=== PATIENT | female | born 1995 | race African-American/Black ===

== ENCOUNTER 2017-06-26 04:58 | Emergency (ER) | payer OTHER, SELFPAY ==
[2017-06-26 05:12] VITALS: BP 140/86; PULSE 77; RESP 18; TEMP 36.9; O2SAT 100; BMI 29.8
--- NOTE | 2017-06-26 05:45 | HMH.EDUROGF ---
ED Disposition Clinical Impression: Dysmenorrhea Disposition: Home, Self-Care Condition on Discharge: Good Instructions: DI for Vaginal Bleeding Additional Instructions: see pcp or chip person for follow up Referrals: Angle Bright PA [Primary Care Provider] - - Critical Care Critical Care Time: No Attestation: On 06/26/17, the high probability of a clinically significant, sudden or life threatening deterioration of the following system(s) required my full and direct attention, intervention and personal management. The time I documented below is in addition to time spent performing reported procedures but includes the following listed in this critical care notation. Medical Decision Making - Medical Records Medical records reviewed: Yes: I reviewed the patient's medical records. Vital Signs: 06/26/17 05:12 Temperature 98.5 F Temperature Source Oral Pulse Rate [Right Radial] 77 Respiratory Rate 18 Blood Pressure [Right Arm] 140/86 Blood Pressure Mean [Right Arm] 104 Blood Pressure Source [Right Arm] Automatic Cuff Blood Pressure Position [Right Arm] Sitting 02 Sat by Pulse Oximetry 100 Oxygen Delivery Method Room Air - Lab Data Lab results reviewed: Yes: I reviewed the patient's lab results. Lab Results 06/26/17 05:25: Urine Color Red, Urine Appearance Cloudy, Urine pH 6.5, Ur Specific [place] >= 1.030, Urine Protein 2+, Urine Glucose (UA) Negative, Urine Ketones Negative, Urine Blood 3+, Urine Nitrate Negative, Urine Bilirubin Negative, Urine Urobilinogen 0.2, Ur Leukocyte Esterase Negative, Urine RBC Tntc, Urine WBC Occasional, Ur Squamous Epith Cells 3-5, Urine Bacteria 1+ 06/26/17 05:50: WBC 5.8, RBC 4.07 L, Hgb 11.0 L, Hct 34.9 L, MCV 85.7, MCH 27.1, MCHC 31.7 L, RDW 15.7, Plt Count 425 H, MPV 7.7, Neut % (Auto) 48.5, Lymph % (Auto) 44.0, [place] % (Auto) 6.5, Eos % (Auto) 0.7, Baso % (Auto) 0.3, Neut # (Auto) 2.8, Lymph # (Auto) 2.5, [place] # (Auto) 0.4, Eos # (Auto) 0.0, Baso # (Auto) 0.0 06/26/17 05:50: Sodium 140, Potassium 3.5, Chloride 104, Carbon Dioxide 26, Anion Gap 13.5, BUN 11, Creatinine 0.83, Estimated Creat Clear 147, Estimated GFR 88, Est GFR ( Amer) 106, Glucose 90, Calcium 8.6, Total Bilirubin 0.2, AST 9 L, ALT 20, Alkaline Phosphatase 80, Total Protein 7.6, Albumin 3.7, Globulin 3.9 H, Albumin/Globulin Ratio 0.9 L 06/26/17 05:55: Urine HCG, Qual Negative Result diagrams: 06/26/17 05:50 06/26/17 05:50 - Robert Inquiry Pt receiving controlled substance: No Female Urogenital HPI - General Chief complaint: Urogenital-Female Stated complaint: Passed large clot, possible miscarriage Time Seen by Provider: 06/26/17 05:45 Mode of Arrival: Ambulatory Source of Information: Patient, Relative, Medical Record Limitations: No Limitations Description of Symptoms (Recalled from ER Triage Doc. by RN): Pt reports her period is early and she is passing blood clots, pt reports lower abdominal cramping. - History of Present Illness HPI Narrative: pt with crampy pelvic pain with abn vag bleeding - neg preg test last week - MD Complaint: vaginal bleeding Onset (ago): hour(s) Severity: moderate Quality: cramping Duration: intermittent Sexual activity: yes : unsure - Related Data Home Medications Medication Instructions Recorded Confirmed No Known Home Medications [No 06/26/17 06/26/17 Known Home Medications] Allergies Allergy/AdvReac Type Severity Reaction Status Date / Time No Known Allergies Allergy Verified 06/26/17 05:20 [facility] History I have reviewed the patient's past medical history: Yes - Social History Smoking Status: Current every day smoker Tobacco Type: cigarettes Alcohol Intake: never - Psychiatric History Expresses thoughts of harming self/others: None Suicide Plan Description: No Plan ROS Obtained: Yes All systems reviewed & no additional complaints - Constitutional Constitutional: Denies fever(s) - Eyes Eyes: Denies ch
[2017-06-26 06:15] LABS: Appearance,Urine CLOUDY (Clear); Bilirubin,Urine Negative (Negative); Blood, Urine 3+ (Negative); Color,Urine RED (Yellow); Glucose,Urine (UA) Negative (Negative); Ketones,Urine Negative (Negative); Leukocyte Esterase,Urine Negative (Negative); Microscopic, Urine URINE MICROSCOPIC (MICROSCOPIC); Nitrate,Urine Negative (Negative); PH,Urine 6.5 (5.0-8.5); Protein,Urine 2+ (Negative); Specific Gravity, Urine >= 1.030 (1.005-1.030); Urobilinogen,Urine 0.2 EU/dl (0.2)
[2017-06-26 06:20] LABS: Urine Pregnancy, HCG Qual. Negative (Negative)
[2017-06-26 06:31] LABS: Basophils % 0.3 % (0.1-2.0); Eosinophils % 0.7 % (0.1-12.0); Hematocrit 34.9 % (37.0-47.0); Lymphocytes # 2.5 K/mm3 (0.7-4.5); Mean Corpuscular HGB Conc 31.7 g/dL (31.8-35.4); Mean Corpuscular Hemoglobin 27.1 pg (27.0-31.2); Mean Corpuscular Volume 85.7 fl (81-99); Mean Platelet Volume 7.7 fl (7.4-10.4); Monocytes # 0.4 K/mm3 (0.1-1.0); Monocytes % 6.5 % (1.7-9.3); Neutrophils # 2.8 K/mm3 (1.8-7.8); Neutrophils % 48.5 % (37.0-80.0); Platelet Count 425 K/mm3 (142-424); Red Blood Count 4.07 M/mm3 (4.20-5.40); Red Cell Distribution Width 15.7 % (11.5-17.5); White Blood Count 5.8 K/mm3 (4.5-13.0)
[2017-06-26 06:36] LABS: RBC,Urine TNTC #/hpf (0-3); WBC,Urine Occasional #/hpf (0-3)
[2017-06-26 06:37] LABS: Bacteria,Urine 1+ /lpf
[2017-06-26 06:42] LABS: Alanine Aminotransferase 20 U/L (12-78); Albumin Level 3.7 gm/dL (3.4-5.0); Albumin/Globulin Ratio 0.9 (1.1-1.8); Alkaline Phosphatase 80 U/L (46-116); Anion Gap 13.5 mEq/L (5-15); Aspartate Amino Transferase 9 U/L (15-37); Bilirubin,Total 0.2 mg/dL (0.2-1.0); Blood Urea Nitrogen 11 mg/dL (7-18); Calcium 8.6 mg/dL (8.5-10.1); Carbon Dioxide 26 mmol/L (21.0-32.0); Chloride 104 mmol/L (98-107); Creatinine Clearance Estimated 147 mL/min (0-300); Creatinine,Serum 0.83 mg/dL (0.55-1.02); Estimated Glomerular Filt Rate 88 ml/min (>60); GFR (African American) 106 ML/MIN (>60); Globulin 3.9 gm/dl (1.3-3.2); Glucose 90 mg/dL (74-106); Potassium 3.5 mmoL/L (3.5-5.1); Sodium 140 mmol/L (136-145); Total Protein,Serum 7.6 gm/dL (6.4-8.2)
[2017-06-26 06:55] VITALS: BP 140/79; PULSE 76; RESP 18; TEMP 36.8; O2SAT 99
== END 2017-06-26 06:55 | disposition home or self-care (01) ==
PROVIDERS: Emergency Provider Emergency Medicine; Family Provider Physician Assistant; PCP Physician Assistant
DX: N94.6 Dysmenorrhea, unspecified (principal); F17.210 Nicotine dependence, cigarettes, uncomplicated
CPT/HCPCS: 80053; 81001; 81025; 85025; 99282

== ENCOUNTER → 2017-08-28 16:27 | Outpatient (REF) | payer OTHER, SELFPAY ==
[2017-08-28 18:29] LABS: Basophils % 0.3 % (0.1-2.0); Eosinophils # 0.1 K/mm3 (0.0-0.4); Hematocrit 36.7 % (37.0-47.0); Hemoglobin 11.4 g/dL (12.2-16.2); Lymphocytes # 1.9 K/mm3 (0.7-4.5); Lymphocytes % 27.6 K/mm3 (10-50); Mean Corpuscular HGB Conc 31.1 g/dL (31.8-35.4); Mean Corpuscular Hemoglobin 27.3 pg (27.0-31.2); Mean Corpuscular Volume 87.8 fl (81-99); Mean Platelet Volume 7.8 fl (7.4-10.4); Monocytes # 0.4 K/mm3 (0.1-1.0); Monocytes % 5.3 % (1.7-9.3); Neutrophils # 4.4 K/mm3 (1.8-7.8); Neutrophils % 65.8 % (37.0-80.0); Platelet Count 365 K/mm3 (142-424); Red Blood Count 4.18 M/mm3 (4.20-5.40); Red Cell Distribution Width 15.9 % (11.5-17.5); White Blood Count 6.7 K/mm3 (4.5-13.0)
[2017-08-28 19:07] LABS: Hemoglobin A1C 5.2 % (0.0-7.0)
[2017-08-28 19:09] LABS: Alanine Aminotransferase 18 U/L (12-78); Albumin Level 3.5 gm/dL (3.4-5.0); Alkaline Phosphatase 71 U/L (46-116); Aspartate Amino Transferase 10 U/L (15-37); Bilirubin,Total 0.1 mg/dL (0.2-1.0); Blood Urea Nitrogen 10 mg/dL (7-18); Calcium 9.3 mg/dL (8.5-10.1); Carbon Dioxide 25 mmol/L (21.0-32.0); Chloride 105 mmol/L (98-107); Chol/HDL Ratio 2.8 (1-3.5); Cholesterol 136 mg/dL (140-200); Creatinine,Serum 0.84 mg/dL (0.55-1.02); Estimated Glomerular Filt Rate 86 ml/min (>60); GFR (African American) 105 ML/MIN (>60); Globulin 3.4 gm/dl (1.3-3.2); Glucose 82 mg/dL (74-106); HDL Cholesterol 49 mg/dL (29-89); LDL Cholesterol 60 mg/dL (0-130); Sodium 141 mmol/L (136-145); T4 (Thyroxine) 8.8 ug/dl (5.4-10.6); Total Protein,Serum 6.9 gm/dL (6.4-8.2); Triglycerides 133 mg/dL (30-200); VLDL Cholesterol 27 mg/dL (0-40)
[2017-08-28 20:18] LABS: Ferritin 15 ng/mL (8-388); Thyroid Stimulating Hormone 1.81 uIU/ml (0.516-4.13)
[2017-08-30 08:28] LABS: Iron 97 ug/dL (27-159); Iron Saturation 24 % (15-55); UIBC 312 ug/dL (131-425)
[2017-08-31 12:51] LABS: Vitamin B12 361 pg/mL (232-1245); Vitamin D 25 Hydroxy 10.6 ng/mL (30.0-100.0)
== END ==
LOC: LAB 16:27
PROVIDERS: Visit Provider Nurse Practitioner Family
DX: R69 Illness, unspecified (principal); D64.9 Anemia, unspecified; R53.83 Other fatigue
CPT/HCPCS: 80053; 80061; 82607; 82652; 82728; 83036; 83550; 84436; 84443; 84702; 85025

== ENCOUNTER 2017-09-13 13:29 | Observation (INO) ==
[2017-09-13 14:16] LABS: Basophils % 0.5 % (0.1-2.0); Eosinophils % 0.5 % (0.1-12.0); Hemoglobin 11.8 g/dL (12.2-16.2); Lymphocytes # 0.9 K/mm3 (0.7-4.5); Lymphocytes % 29.7 K/mm3 (10-50); Mean Corpuscular HGB Conc 32.7 g/dL (31.8-35.4); Mean Corpuscular Hemoglobin 28.2 pg (27.0-31.2); Mean Corpuscular Volume 86.2 fl (81-99); Mean Platelet Volume 7.7 fl (7.4-10.4); Monocytes # 0.4 K/mm3 (0.1-1.0); Monocytes % 13.1 % (1.7-9.3); Neutrophils # 1.7 K/mm3 (1.8-7.8); Neutrophils % 56.2 % (37.0-80.0); Platelet Count 289 K/mm3 (142-424); Red Blood Count 4.18 M/mm3 (4.20-5.40); Red Cell Distribution Width 16.8 % (11.5-17.5)
[2017-09-13 14:24] LABS: Albumin Level 3.3 gm/dL (3.4-5.0); Albumin/Globulin Ratio 0.8 (1.1-1.8); Anion Gap 14.4 mEq/L (5-15); Bilirubin,Total 0.2 mg/dL (0.2-1.0); Calcium 9.4 mg/dL (8.5-10.1); Globulin 4.3 gm/dl (1.3-3.2); Potassium 3.4 mmoL/L (3.5-5.1); Total Protein,Serum 7.6 gm/dL (6.4-8.2)
--- NOTE | 2017-09-13 14:50 | Emergency Department Note ---
ED Disposition Clinical Impression: Intractable vomiting, Dehydration, Hypokalemia, Anemia, Diarrhea, First trimester Disposition: Still a Patient Condition on Discharge: Fair Instructions: DI for Diarrhea and Traveler's Diarrhea -- Adult, DI for Diarrhea and Traveler's Diarrhea -- Child, DI for Nausea -- Adult, DI for Nausea -- Child Referrals: Angle Bright PA [Primary Care Provider] - - Critical Care Critical Care Time: No Attestation: On 09/13/17, the high probability of a clinically significant, sudden or life threatening deterioration of the following system(s) required my full and direct attention, intervention and personal management. The time I documented below is in addition to time spent performing reported procedures but includes the following listed in this critical care notation. Medical Decision Making - Robert Inquiry Pt receiving controlled substance: No Robert was queried for this patient: No Vital Signs: 09/13/17 13:51 Temperature 98.5 F Temperature Source Oral Pulse Rate [Left Radial] 106 H Respiratory Rate 20 Blood Pressure [Right Arm] 120/74 Blood Pressure Mean [Right Arm] 89 Blood Pressure Source [Right Arm] Automatic Cuff 02 Sat by Pulse Oximetry 97 Oxygen Delivery Method Room Air - Lab Data Lab Results 09/13/17 13:45: WBC 3.0 L, RBC 4.18 L, Hgb 11.8 L, Hct 36.0 L, MCV 86.2, MCH 28.2, MCHC 32.7, RDW 16.8, Plt Count 289, MPV 7.7, Neut % (Auto) 56.2, Lymph % ( Auto) 29.7, [place] % (Auto) 13.1 H, Eos % (Auto) 0.5, Baso % (Auto) 0.5, Neut # ( Auto) 1.7 L, Lymph # (Auto) 0.9, [place] # (Auto) 0.4, Eos # (Auto) 0.0, Baso # ( Auto) 0.0 09/13/17 13:45: Sodium 138, Potassium 3.4 L, Chloride 99, Carbon Dioxide 28, Anion Gap 14.4, BUN 10, Creatinine 0.71, Estimated Creat Clear 176, Estimated GFR 105, Est GFR ( Amer) 127, Glucose 95, Calcium 9.4, Total Bilirubin 0.2, AST 23, ALT 30, Alkaline Phosphatase 63, Total Protein 7.6, Albumin 3.3 L, Globulin 4.3 H, Albumin/Globulin Ratio 0.8 L Result diagrams: 09/13/17 13:45 09/13/17 13:45 Orders (Tests/Meds): ED MEDICATIONS Discontinued Medications Generic Name Dose Route Start Last Admin Trade Name Tone PRN Reason Stop Dose Admin Sodium Chloride 1,000 mls @ 999 mls/hr 09/13/17 14:00 09/13/17 14:05 Sod Chlor 0.9% 1000ml Bag IV 09/13/17 15:00 999 mls/hr .Q1H1M MARIBELL Administration Potassium Chloride 30 meq 09/13/17 14:50 Klor-Con 10meq Tablet PO 09/13/17 14:51 ONCE ONE Promethazine HCl 12.5 mg 09/13/17 13:59 09/13/17 14:04 Phenergan 25mg/Ml 1ml Vial IV 09/13/17 14:00 12.5 mg ONCE ONE Administration Sodium Chloride 25 ml 09/13/17 13:59 09/13/17 14:04 Sod Chlor 0.9% 25ml Bag IV 09/13/17 14:00 25 ml ONCE ONE Administration ORDERS Category Date Time Status UA [Urinalysis and Microscopic] Stat Lab 09/13/17 13:58 Ordered Medical Decision Narrative: After the patient was given Phenergan IV and IV fluids she was unable to tolerate p.o. liquid p.o.. I spoke with Amarilis Foster and she accepted to admit the patient for IV rehydration and antiemetics therapy. Nausea/Vomiting/Diarrhea HPI - General Chief complaint: Nausea/Vomiting/Diarrhea Stated complaint: vomiting x 48 hours, 9 weeks Time Seen by Provider: 09/13/17 14:00 Mode of Arrival: Ambulatory Limitations: No Limitations Description of Symptoms (Recalled from ER Triage Doc. by RN): Pt is 9 weeks and has been vomiting for 48 hours. States she is worried about the and not being able to keep anything down. Denies any bleeding or cramping - History of Present Illness HPI Narrative: 22 years old -[place] female 1 para 0 A0. 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 2 days ago she developed vomiting 10-20 times a day followed by diarrhea 6 times a day. This morning she was unable to keep any liquids down, she called her PILLOWCASE TURNER and she decided to come to the ED. the ED she was given Phenergan and she is not actively vomiting. Denies having abdominal pain back pain pelvic pain vaginal cramping or bleeding. MD complaint: nausea, vomiting, diarrhea Onset (ago): hour(s) (48 hours.) Description of Vomiting: food contents, watery Description of Diarrhea: water Associated Abdominal Pain: No Quality: cramping (Occasional cramping with vomiting and diarrhea but not consistently.) Consistency: intermittent Relieving factors: none Exacerbating factors: eating Associated symptoms: denies other symptoms - Related Data Home Medications Medication Instructions Recorded Confirmed Pnv No.122/Iron/Folic Acid 1 each PO DAILY 08/26/17 09/13/17 [ Multi Tablet] Ergocalciferol (Vitamin D2) 50,000 unit PO QWEEK 09/13/17 09/13/17 [Vitamin D2] Allergies Allergy/AdvReac Type Severity Reaction Status Date / Time No Known Allergies Allergy Verified 08/28/17 16:08 [facility] History I have reviewed the patient's past medical history: Yes (There is an outbreak of stomach virus in the community. ) Medical History: Denies:: Cancer, Diabetes Mellitus Type 1, Diabetes Mellitus Type 2, MRSA Other Surgeries: Yes: No Previous Surgery Amputation: No Fractures: No - Social History Smoking Status: Current every day smoker Tobacco Type: cigarettes # Packs/Day (cigarettes): 1 #Yrs smoked (if former smoker): 1 Alcohol Intake: never Substance Use Type: denies use Occupational Status: unemployed Housing: house Household Members: family - Psychiatric History Expresses thoughts of harming self/others: None Suicide Plan Description: No Plan Family Hx:: No significant family history ROS Obtained: Yes All systems reviewed & no additional complaints Physical Exam - General General appearance: alert, in no apparent distress, other (Had a candid discussion with the patient provided full history, was in no cardiopulmonary distress. ) - Head Head exam: atraumatic, normocephalic, normal inspection - Eye Eye exam: Present: normal appearance, PERRL, EOMI - ENT ENT exam: Present: normal exam, normal oropharynx, mucous membranes moist, TM's normal bilaterally, normal external ear exam - Neck Neck exam: Present: normal inspection, full ROM, trachea midline. Absent: meningismus, lymphadenopathy - Chest Chest inspection: Present: normal inspection, symmetric chest wall rise. Absent : tenderness - Respiratory Respiratory exam: Present: normal lung sounds bilaterally. Absent: respiratory distress - Cardiovascular Cardiovascular exam: Present: regular rate, normal rhythm. Absent: JVD - Abdominal Exam Abdominal exam: Present: soft, normal bowel sounds. Absent: distention, tenderness, guarding - Extremities Exam Extremities exam: Present: normal inspection, full ROM, normal capillary refill. Absent: calf tenderness - Back Exam Back exam: Present: normal inspection. Absent: tenderness - Neurological Exam Neurological exam: Present: alert, oriented X3, CN II-XII intact, normal gait, motor sensory deficit, reflexes normal - Psychiatric Psychiatric exam: Present: normal affect, normal mood - Skin Skin exam: Present: warm, dry, intact, normal color - Lymphatic Lymphatic Findings: no adenopathy
[2017-09-13 15:50] LABS: Microscopic, Urine URINE MICROSCOPIC (MICROSCOPIC)
[2017-09-13 16:00] LABS: Appearance,Urine CLEAR (Clear); Bilirubin,Urine Negative (Negative); Blood, Urine Negative (Negative); Color,Urine YELLOW (Yellow); Glucose,Urine (UA) Negative (Negative); Ketones,Urine Negative (Negative); Leukocyte Esterase,Urine 1+ (Negative); Protein,Urine Negative (Negative); Specific Gravity, Urine <= 1.005 (1.005-1.030); Urobilinogen,Urine 0.2 EU/dl (0.2)
[2017-09-13 16:26] LABS: Bacteria,Urine 1+ /lpf; Squamous Epithelial Cell,Urine TNTC #/hpf (0-5)
[2017-09-14 06:56] LABS: Basophils % 0.1 % (0.1-2.0); Eosinophils % 0.7 % (0.1-12.0); Lymphocytes # 0.8 K/mm3 (0.7-4.5); Lymphocytes % 32.7 K/mm3 (10-50); Mean Corpuscular HGB Conc 32.9 g/dL (31.8-35.4); Mean Corpuscular Hemoglobin 28.4 pg (27.0-31.2); Mean Corpuscular Volume 86.4 fl (81-99); Mean Platelet Volume 8.2 fl (7.4-10.4); Monocytes # 0.3 K/mm3 (0.1-1.0); Monocytes % 11.7 % (1.7-9.3); Neutrophils # 1.4 K/mm3 (1.8-7.8); Neutrophils % 54.8 % (37.0-80.0); Platelet Count 254 K/mm3 (142-424); Red Blood Count 3.64 M/mm3 (4.20-5.40); Red Cell Distribution Width 16.8 % (11.5-17.5); White Blood Count 2.5 K/mm3 (4.5-13.0)
[2017-09-14 07:10] LABS: Anion Gap 13.6 mEq/L (5-15); Potassium 3.6 mmoL/L (3.5-5.1)
--- NOTE | 2017-09-14 07:10 | Pharmacy Consult Notes ---
[facility] Pharmacy VTE Monitoring - Patient Demographics Admission date: 09/14/17 Report Date: 09/14/17 Time: 07:10 Allergies/Adverse Reactions: Patient Allergies No Known Allergies Allergy (Verified 08/28/17 16:08) Height: 1.73 m Weight: 89.556 kg Patient Problems: Current Active Problems (Last Updated 09/03/17 @ 15:21 by WERNER Pina) Intractable vomiting (Acute) Dehydration (Acute) Hypokalemia (Acute) Anemia (Acute) Diarrhea (Acute) First trimester (Acute) - VTE Risk Labs: VTE Related Lab Results Hgb 11.8 g/dL (12.2-16.2) L 09/13/17 13:45 Hct 36.0 % (37.0-47.0) L 09/13/17 13:45 Plt Count 289 K/mm3 (142-424) 09/13/17 13:45 BUN 10 mg/dL (7-18) 09/13/17 13:45 Creatinine 0.71 mg/dL (0.55-1.02) 09/13/17 13:45 Estimated Creat Clear 176 mL/min (0-300) 09/13/17 13:45 Was VTE Risk Assessment Performed: Yes VTE Score: 0 VTE Risk Level: Very Low Risk Clinical Trial Participant: No - Prophylaxis VTE Prophylaxis Ordered?: Yes Types of VTE Prophylaxis: TEDS Knee High
[2017-09-14 07:25] LABS: Hemoglobin 10.3 g/dL (12.2-16.2)
[2017-09-14 07:26] LABS: Hematocrit 31.5 % (37.0-47.0)
--- NOTE | 2017-09-14 08:42 | H&P/Discharge Summary ---
General - General Admission date:: 09/13/17 Discharge date: 09/14/17 *Admission Date: 09/14/17 *Chief complaint: n/v/d *History of present illness: 22 years old female 1 para 0. 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 Pt states she was unable to keep any liquids down, pt states she called her CUSTOMER SUPPORT SPECIALIST and she decided to come to the ED. While in the ED she was given Phenergan and she is not actively vomiting. Denies having abdominal pain back pain pelvic pain vaginal cramping or bleeding. Pt states has had ultrasound with silk screen etcher/ob office and states is normal. [facility] History I have reviewed the patient's past medical history: Yes Medical History: Denies:: Cancer, Diabetes Mellitus Type 1, Diabetes Mellitus Type 2, MRSA Other Surgeries: Yes: No Previous Surgery Amputation: No Fractures: No - *Social History Educational Level: Completed High School Smoking Status: Current every day smoker Tobacco Type: cigarettes # Packs/Day (cigarettes): 1 #Yrs smoked (if former smoker): 1 Alcohol Intake: never Substance Use Type: denies use Occupational Status: unemployed Housing: house Household Members: family - Psychiatric History Expresses thoughts of harming self/others: None Suicide Plan Description: No Plan *Family Hx:: No significant family history Review of Systems - Review of Systems Review of systems:: pertinent systems reviewed and negative unless documented below - Constitutional Denies body ache(s), Denies fever(s) - Eyes Denies change in vision - ENT Denies change in voice - *Cardiovascular Denies chest pain with activity, Denies leg swelling - *Respiratory Denies cough, Denies shortness of breath - *Gastrointestinal Reports change in bowel habits, Reports nausea, Reports vomiting - *Genitourinary Reports other - *Musculoskeletal Denies joint pain - Integumentary/Breasts Denies rash - *Neurologic Denies other - Psychiatric Denies anxiety - Endocrine Denies increased thirst - Hematologic/Lymphatic Denies enlarged lymph nodes - Allergic/Immunologic Denies itchy eyes Exam Vital signs and Labs for Last 24 Hours: Temp Pulse Resp BP Pulse Ox 99.3 F 84 14 113/63 99 09/14/17 04:00 09/14/17 04:00 09/14/17 04:00 09/14/17 04:00 09/14/17 04:00 Laboratory Results - last 24 hr 09/13/17 13:45: WBC 3.0 L, RBC 4.18 L, Hgb 11.8 L, Hct 36.0 L, MCV 86.2, MCH 28.2, MCHC 32.7, RDW 16.8, Plt Count 289, MPV 7.7, Neut % (Auto) 56.2, Lymph % ( Auto) 29.7, [place] % (Auto) 13.1 H, Eos % (Auto) 0.5, Baso % (Auto) 0.5, Neut # ( Auto) 1.7 L, Lymph # (Auto) 0.9, [place] # (Auto) 0.4, Eos # (Auto) 0.0, Baso # ( Auto) 0.0 09/13/17 13:45: Sodium 138, Potassium 3.4 L, Chloride 99, Carbon Dioxide 28, Anion Gap 14.4, BUN 10, Creatinine 0.71, Estimated Creat Clear 176, Estimated GFR 105, Est GFR ( Amer) 127, Glucose 95, Calcium 9.4, Total Bilirubin 0.2, AST 23, ALT 30, Alkaline Phosphatase 63, Total Protein 7.6, Albumin 3.3 L, Globulin 4.3 H, Albumin/Globulin Ratio 0.8 L 09/13/17 15:35: Urine Color Yellow, Urine Appearance Clear, Urine pH 6.0, Ur Specific [place] <= 1.005, Urine Protein Negative, Urine Glucose (UA) Negative, Urine Ketones Negative, Urine Blood Negative, Urine Nitrate Negative, Urine Bilirubin Negative, Urine Urobilinogen 0.2, Ur Leukocyte Esterase 1+ A, Urine RBC None, Urine WBC 5-10, Ur Squamous Epith Cells Tntc, Urine Bacteria 1+ 09/14/17 06:10: WBC 2.5 L, RBC 3.64 L, Hgb 10.3 L D, Hct 31.5 L, MCV 86.4, MCH 28.4, MCHC 32.9, RDW 16.8, Plt Count 254, MPV 8.2, Neut % (Auto) 54.8, Lymph % ( Auto) 32.7, [place] % (Auto) 11.7 H, Eos % (Auto) 0.7, Baso % (Auto) 0.1, Neut # ( Auto) 1.4 L, Lymph # (Auto) 0.8, [place] # (Auto) 0.3, Eos # (Auto) 0.0, Baso # ( Auto) 0.0 09/14/17 06:10: Sodium 140, Potassium 3.6, Chloride 107, Carbon Dioxide 23, Anion Gap 13.6, BUN 6 L D, Creatinine 0.56 D, Estimated Creat Clear 227, Estimated GFR 138, Est GFR ( Amer) 167 D, Glucose 94, Magnesium 1.7 I & O for Last 24 hours: Intake & Output 09/11/17 09/12/17 09/13/17 09/14/17 11:59 11:59 11:59 11:59 Intake Total 120 / 120 Balance 120 / 120 Weight 197 lb 7 oz - Constitutional no acute distress - *Routine HEENT Exam Head: Present: normocephalic Eye: Present: PERRL ENT: Present: mucous membranes moist - *Routine Neck Exam Present: supple, full ROM - *Routine Respiratory Exam Present: CTA bilaterally - *Routine Cardiovascular Exam Present: RRR - *Routine Abdominal Exam Present: soft, normoactive bowel sounds - *Routine Extremities Exam Present: full ROM - *Routine Skin Exam Present: intact - *Routine Neurological Exam Present: alert, oriented X3, CN II-XII intact - Routine Psychiatric Exam Present: normal affect, normal thought process Hospital Course Hospital Course: Received IV fluids, resting of the gut, patient states this morning she has eaten some simeon crackers with marginal cream and was able to keep those stay on and feeling much better. Patient states family is to bring her in [place] , states she does not feel nauseous this time. We will discharge home with follow-up with CUSTOMER SUPPORT SPECIALIST patient has Phenergan at home that was given to her by her CUSTOMER SUPPORT SPECIALIST. Results Labs on day of discharge: Labs from last 24 hours 09/14/17 09/14/17 09/13/17 06:10 06:10 15:35 WBC 2.5 L RBC 3.64 L Hgb 10.3 L D Hct 31.5 L MCV 86.4 MCH 28.4 MCHC 32.9 RDW 16.8 Plt Count 254 MPV 8.2 Neut % (Auto) 54.8 Lymph % (Auto) 32.7 [place] % (Auto) 11.7 H Eos % (Auto) 0.7 Baso % (Auto) 0.1 Neut # (Auto) 1.4 L Lymph # (Auto) 0.8 [place] # (Auto) 0.3 Eos # (Auto) 0.0 Baso # (Auto) 0.0 Sodium 140 Potassium 3.6 Chloride 107 Carbon Dioxide 23 Anion Gap 13.6 BUN 6 L D Creatinine 0.56 D Estimated Creat Clear 227 Estimated GFR 138 Est GFR ( Amer) 167 D Glucose 94 Calcium Magnesium 1.7 Total Bilirubin AST ALT Alkaline Phosphatase Total Protein Albumin Globulin Albumin/Globulin Ratio Urine Color Yellow Urine Appearance Clear Urine pH 6.0 Ur Specific [place] <= 1.005 Urine Protein Negative Urine Glucose (UA) Negative Urine Ketones Negative Urine Blood Negative Urine Nitrate Negative Urine Bilirubin Negative Urine Urobilinogen 0.2 Ur Leukocyte Esterase 1+ A Urine RBC None Urine WBC 5-10 Ur Squamous Epith Cells Tntc Urine Bacteria 1+ 09/13/17 09/13/17 13:45 13:45 WBC 3.0 L RBC 4.18 L Hgb 11.8 L Hct 36.0 L MCV 86.2 MCH 28.2 MCHC 32.7 RDW 16.8 Plt Count 289 MPV 7.7 Neut % (Auto) 56.2 Lymph % (Auto) 29.7 [place] % (Auto) 13.1 H Eos % (Auto) 0.5 Baso % (Auto) 0.5 Neut # (Auto) 1.7 L Lymph # (Auto) 0.9 [place] # (Auto) 0.4 Eos # (Auto) 0.0 Baso # (Auto) 0.0 Sodium 138 Potassium 3.4 L Chloride 99 Carbon Dioxide 28 Anion Gap 14.4 BUN 10 Creatinine 0.71 Estimated Creat Clear 176 Estimated GFR 105 Est GFR ( Amer) 127 Glucose 95 Calcium 9.4 Magnesium Total Bilirubin 0.2 AST 23 ALT 30 Alkaline Phosphatase 63 Total Protein 7.6 Albumin 3.3 L Globulin 4.3 H Albumin/Globulin Ratio 0.8 L Urine Color Urine Appearance Urine pH Ur Specific [place] Urine Protein Urine Glucose (UA) Urine Ketones Urine Blood Urine Nitrate Urine Bilirubin Urine Urobilinogen Ur Leukocyte Esterase Urine RBC Urine WBC Ur Squamous Epith Cells Urine Bacteria - Additional Comments With Dr. Orona orders per Yeyo Discharge Medications Discharge Medications: Home Medications Medication Instructions Recorded Confirmed Type Pnv No.122/Iron/Folic Acid 1 each PO DAILY 08/26/17 09/13/17 History [ Multi Tablet] Ergocalciferol (Vitamin D2) 50,000 unit PO QWEEK 09/13/17 09/13/17 History [Vitamin D2] Promethazine HCl [Phenergan 25mg 25 mg PO Q4-6H PRN 09/13/17 09/13/17 History tab] Disposition Disposition: Home, Self-Care
== END 2017-09-14 09:30 | disposition home or self-care (01) ==
LOC: ER 13:29 → 2ND 13:29
PROVIDERS: ADMIT Emergency Medicine; ATTEND Emergency Medicine

== ENCOUNTER → 2019-01-13 14:20 | Outpatient (CLI) | payer OTHER, SELFPAY ==
[2019-01-15 06:09] LABS: HIV Screen 4th Generation wRfx Non Reactive (Non Reactive)
[2019-01-15 09:12] LABS: Hep A Ab, IgM Negative (Negative); Hepatitis B Core Antibody IgM Negative (Negative); Hepatitis B Surface Antigen Negative (Negative)
[2019-01-16 07:10] LABS: HSV 1 IgG, Type Spec <0.91 index (0.00-0.90); HSV 2 IgG, Type Spec <0.91 index (0.00-0.90); Hepatitis C Antibody <0.1 s/co ratio (0.0-0.9); Rapid Plasma Reagin Ab Titer Non Reactive (NonRea<1:1)
[2019-01-16 07:16] LABS: Neisseria gonorrhoeae, NAA Negative (Negative)
== END ==
PROVIDERS: Visit Provider Nurse Practitioner Obstetrics & Gynecology
DX: Z72.51 High risk heterosexual behavior (principal)
CPT/HCPCS: 36415; 80074; 86592; 86695; 86703; 86790; 87491; 87591; G0432

== ENCOUNTER → 2019-02-18 17:29 | Outpatient (CLI) | payer OTHER, SELFPAY ==
[2019-02-18 18:40] LABS: Basophils % 0.3 % (0.1-2.0); Eosinophils % 0.9 % (0.1-12.0); Hematocrit 39.7 % (37.0-47.0); Hemoglobin 11.8 g/dL (12.2-16.2); Lymphocytes # 1.8 K/mm3 (0.7-4.5); Lymphocytes % 40.7 % (10-50); Mean Corpuscular HGB Conc 29.8 g/dL (31.8-35.4); Mean Corpuscular Hemoglobin 26.6 pg (27.0-31.2); Mean Corpuscular Volume 89.3 fl (81-99); Mean Platelet Volume 8.2 fl (7.4-10.4); Monocytes # 0.3 K/mm3 (0.1-1.0); Monocytes % 6.4 % (1.7-9.3); Neutrophils # 2.3 K/mm3 (1.8-7.8); Neutrophils % 51.7 % (37.0-80.0); Platelet Count 532 K/mm3 (142-424); Red Blood Count 4.44 M/mm3 (4.20-5.40); Red Cell Distribution Width 15.2 % (11.5-17.5); White Blood Count 4.4 K/mm3 (4.8-10.8)
[2019-02-18 19:54] LABS: Alanine Aminotransferase 11 U/L (12-78); Albumin Level 3.8 gm/dL (3.4-5.0); Albumin/Globulin Ratio 1.1 (1.1-1.8); Aspartate Amino Transferase 8 U/L (15-37); Bilirubin,Total 0.3 mg/dL (0.2-1.0); Blood Urea Nitrogen 11 mg/dL (7-18); Calcium 9.1 mg/dL (8.5-10.1); Carbon Dioxide 26 mmol/L (21.0-32.0); Chloride 102 mmol/L (98-107); Estimated Glomerular Filt Rate 90 ml/min (>60); GFR (African American) 109 ML/MIN (>60); Globulin 3.6 gm/dl (1.3-3.2); Glucose 86 mg/dL (74-106); Sodium 139 mmol/L (136-145); Total Protein,Serum 7.4 gm/dL (6.4-8.2); Triglycerides 91 mg/dL (30-200)
[2019-02-18 19:55] LABS: Alkaline Phosphatase 80 U/L (46-116); Cholesterol 167 mg/dL (140-200); HDL Cholesterol 55 mg/dL (29-89); LDL Cholesterol 94 mg/dL (0-130); T4 (Thyroxine) 8.7 ug/dl (4.7-13.3); VLDL Cholesterol 18 mg/dL (0-40)
[2019-02-20 17:10] LABS: Vitamin D 25 Hydroxy 11.2 ng/mL (30.0-100.0)
== END ==
PROVIDERS: Visit Provider Nurse Practitioner Family
DX: H57.10 Ocular pain, unspecified eye (principal); M54.2 Cervicalgia; E55.9 Vitamin D deficiency, unspecified
CPT/HCPCS: 80053; 80061; 82652; 84436; 84443; 85025

== ENCOUNTER → 2019-12-16 15:21 | Outpatient (CLI) | payer OTHER, SELFPAY ==
[2019-12-16 16:05] LABS: Basophils % 0.3 % (0.1-2.0); Eosinophils # 0.1 K/mm3 (0.0-0.4); Eosinophils % 1.4 % (0.1-12.0); Hematocrit 35.9 % (37.0-47.0); Hemoglobin 11.1 g/dL (12.2-16.2); Lymphocytes # 2.2 K/mm3 (0.7-4.5); Lymphocytes % 36.3 % (10-50); Mean Corpuscular Hemoglobin 25.2 pg (27.0-31.2); Mean Corpuscular Volume 81.4 fl (81-99); Mean Platelet Volume 8.4 fl (7.4-10.4); Monocytes # 0.3 K/mm3 (0.1-1.0); Monocytes % 5.2 % (1.7-9.3); Neutrophils # 3.4 K/mm3 (1.8-7.8); Neutrophils % 56.8 % (37.0-80.0); Platelet Count 451 K/mm3 (142-424); Red Blood Count 4.41 M/mm3 (4.20-5.40); Red Cell Distribution Width 17.1 % (11.5-17.5); White Blood Count 5.9 K/mm3 (4.8-10.8)
[2019-12-16 16:15] LABS: Alanine Aminotransferase 13 U/L (12-78); Albumin Level 4.2 g/dl (3.5-5.0); Albumin/Globulin Ratio 1.3 (1.1-1.8); Alkaline Phosphatase 99 U/L (38-126); Anion Gap 16.5 mEq/L (5-15); Aspartate Amino Transferase 19 U/L (14-36); Bilirubin,Total 0.5 mg/dl (0.2-1.3); Blood Urea Nitrogen 12 mg/dl (7-17); Calcium 9.6 mg/dl (8.4-10.2); Carbon Dioxide 24 mmol/L (22.0-30.0); Chloride 102 mmol/L (98-107); Chol/HDL Ratio 2.8 (1-3.5); Cholesterol 165 mg/dl (140-200); Estimated Glomerular Filt Rate 90 ml/min (>60); GFR (African American) 109 ML/MIN (>60); Globulin 3.3 g/dL (1.3-3.2); Glucose 94 mg/dl (74-100); HDL Cholesterol 60 mg/dl (40-60); Potassium 4.5 mmoL/L (3.5-5.1); Sodium 138 mmol/L (136-145); Total Protein,Serum 7.5 g/dl (6.3-8.2); Triglycerides 86 mg/dl (30-150); VLDL Cholesterol 17 mg/dL (0-40)
[2019-12-16 16:25] LABS: Direct LDL Cholesterol 91.37 mg/dL (100-129)
[2019-12-16 16:32] LABS: T4 (Thyroxine) 8.7 ug/dl (5.53-11.0)
[2019-12-16 16:46] LABS: 25-OH Vitamin D, Total < 12.8 ng/mL (30-100); Thyroid Stimulating Hormone 1.82 uIU/mL (0.465-4.68)
[2019-12-17 11:51] LABS: Iron 43 ug/dL (37-170)
[2019-12-17 12:00] LABS: Total Iron Binding Capacity 477 ug/dL (265-497)
== END ==
PROVIDERS: Visit Provider Physician Assistant
DX: D64.9 Anemia, unspecified (principal); E66.9 Obesity, unspecified; E55.9 Vitamin D deficiency, unspecified
CPT/HCPCS: 80053; 80061; 82306; 82728; 83540; 83550; 84436; 84443; 85025

== ENCOUNTER 2020-01-12 15:44 | Emergency (ER) | payer OTHER, SELFPAY ==
[2020-01-12 16:04] VITALS: BP 144/88; PULSE 102; RESP 19; TEMP 37.3; O2SAT 98; BMI 32.6
--- NOTE | 2020-01-12 16:09 | HMH.EDUTC ---
[facility] Disposition Clinical Impression: Strep throat Disposition: Home, Self-Care Condition on Discharge: Good Instructions: Strep Throat, DI for Strep Throat Additional Instructions: Drink plenty of fluids. Take tylenol or ibuprofen for pain or fever. Take the medications as directed. Follow up with your regular doctor. GO TO THE ER FOR ANY WORSENING SYMPTOMS Get a new tooth brush. Prescriptions: Ondansetron [Zofran 4mg ODT] 4 mg PO Q8HP PRN #20 tab.rapdis PRN Reason: Nausea Transmission Status: Received by [facility] [facility] #[id number] Amoxicillin/Potassium Clav [Augmentin 875-125 Tablet] 1 tab PO Q12H 10 Days #20 tab Transmission Status: Received by [employer] [facility] # Referrals: Angle Bright PA [Primary Care Provider] - Forms: Work/School Release Time of Disposition: 16:12 Medical Decision Making - Medical Records Medical records reviewed: No: I reviewed the patient's medical records. - Robert Inquiry Pt receiving controlled substance: No Vital Signs: 01/12/20 16:04 01/12/20 16:18 Temperature 99.1 F 99.1 F Temperature Source Oral Pulse Rate 102 H Pulse Rate [Right Brachial] 102 H Respiratory Rate 19 19 Blood Pressure 144/88 H Blood Pressure [Right Arm] 144/88 H Blood Pressure Mean [Right Arm] 106 Blood Pressure Source [Right Arm] Automatic Cuff Blood Pressure Position [Right Arm] Sitting 02 Sat by Pulse Oximetry 98 Oxygen Delivery Method Room Air - Lab Data Lab results reviewed: Yes: I reviewed the patient's lab results. Lab Results 01/12/20 15:46: Influenza Type A Ag Negative, Influenza Type B Ag Negative 01/12/20 15:46: Strep Scn Rapid Clinic Positive A [facility] HPI - General Stated complaint: Sore throat, aches, chills, cobos Time Seen by Provider: 01/12/20 16:09 Mode of Arrival: Ambulatory Source of Information: Patient Limitations: No Limitations Description of Symptoms (Recalled from Triage Doc. by RN): PATIENT C/O SORE THROAT, FEVER, AND CHILLS SINCE THIS MORNING HEENT Symptoms (Recalled from RN notes): Yes Resp Symptoms (Recalled from RN notes): No Skin Symptoms (Recalled from RN notes): No MS Symptoms (Recalled from RN notes): No Functional Status (Recalled from RN notes): WNL - History of Present Illness Provider Complaint: She c/o sore throat and feeling bad since early this morning. She denies any known exposure to COVID-19. - Related Data Home Medications Medication Instructions Recorded Confirmed buPROPion HCL [Bupropion Xl] 150 mg PO DAILY 01/12/20 01/12/20 Previous Rx's Medication Instructions Recorded Amoxicillin/Potassium Clav 1 tab PO Q12H 10 Days #20 tab 01/12/20 [Augmentin 875-125 Tablet] Ondansetron [Zofran 4mg ODT] 4 mg PO Q8HP PRN #20 tab.rapdis 01/12/20 Allergies Allergy/AdvReac Type Severity Reaction Status Date / Time No Known Allergies Allergy Verified 12/16/19 08:39 - Worker's Comp Is this a Worker's Comp case?: No [facility] History - Hepatitis A Screen Drug use history?: No High risk sexual behaviors?: No History of sexually transmitted infection?: No Currently employed?: No Childcare worker?: No Do you have indoor plumbing?: Yes Do you have electricity?: Yes Attestation statement:: This patient has been screened for Hepatitis A risk factors. I have reviewed the patient's past medical history: Yes Medical History: Reports:: Anxiety, Depression Denies:: Cancer, Diabetes Mellitus Type 1, Diabetes Mellitus Type 2, MRSA Other Surgeries: Yes: No Previous Surgery Amputation: No Fractures: No - Social History Smoking Status: Current every day smoker Tobacco Type: cigarettes # Packs/Day (cigarettes): 1 #Yrs smoked (if former smoker): 1 Alcohol Intake: never Alcohol Intake Frequency:: holidays/special occasions only Substance Use Type: denies use Occupational Status: other Housing: house Household Members: family - Psychiatric History Pschychiatric History:: Re
[2020-01-12 16:18] VITALS: BP 144/88; PULSE 102; RESP 19; TEMP 37.3; O2SAT 98
[2020-01-12 16:43] LABS: UTC Strep Screen (Rapid) Positive (Negative)
[2020-01-12 19:01] LABS: UTC Influenza A Antigen Negative (Negative); UTC Influenza B Antigen Negative (Negative)
== END 2020-01-12 16:19 | disposition home or self-care (01) ==
PROVIDERS: Emergency Provider Nurse Practitioner Family; PCP Physician Assistant
DX: J02.0 Streptococcal pharyngitis (principal); F41.8 Other specified anxiety disorders; F17.210 Nicotine dependence, cigarettes, uncomplicated
CPT/HCPCS: 87804; 87880; 99201

== ENCOUNTER 2020-01-20 12:24 | Emergency (ER) | payer OTHER, SELFPAY ==
[2020-01-20 13:05] VITALS: BP 132/78; PULSE 88; RESP 18; TEMP 36.7; O2SAT 99; BMI 32.6
--- NOTE | 2020-01-20 13:23 | HMH.EDUTC ---
[facility] [place] Clinical Impression: Yeast infection, Exposure to COVID-19 virus Pharyngitis Qualifiers: Pharyngitis/tonsillitis etiology: streptococcus Qualified Code(s): J02.0 - Streptococcal pharyngitis Disposition: Home, Self-Care Condition on Discharge: Good Instructions: Strep Throat, DI for Vaginal Yeast Infection, Preventing the Spread of Coronavirus Discharge Instructions Additional Instructions: Drink plenty of fluids. Take tylenol or ibuprofen for pain or fever. Take the medications as directed. Follow up with your regular doctor. GO TO THE ER FOR ANY WORSENING SYMPTOMS FOLLOW THE DIRECTIONS ON THE COVID-19 HAND OUT THAT WE GAVE YOU REGARDING SELF-ISOLATION UNTIL YOU KNOW YOUR COVID-19 RESULTS Prescriptions: Fluconazole [Diflucan 150mg tab] 150 mg PO ONCE #1 tab Transmission Status: Received by [facility] Azithromycin [Z-Lucas 250mg Tab*] 250 mg PO UD DOSE PK #6 tab Transmission Status: Received by [facility] Referrals: Angle Bright PA [Primary Care Provider] - Forms: Work/School Release Time of Disposition: 13:39 Medical Decision Making - Medical Records Medical records reviewed: No: I reviewed the patient's medical records. - Robert Inquiry Pt receiving controlled substance: No Vital Signs: 01/20/20 13:05 01/20/20 13:44 Temperature 98.1 F 98.1 F Temperature Source Oral Pulse Rate 88 Pulse Rate [Right Brachial] 88 Respiratory Rate 18 18 Blood Pressure 132/78 Blood Pressure [Right Arm] 132/78 Blood Pressure Mean [Right Arm] 96 Blood Pressure Source [Right Arm] Automatic Cuff Blood Pressure Position [Right Arm] Sitting 02 Sat by Pulse Oximetry 99 Oxygen Delivery Method Room Air - Lab Data Lab results reviewed: Yes: I reviewed the patient's lab results. Lab Results 01/20/20 12:55: Strep Scn Rapid Clinic Negative Orders (Tests/Meds): ORDERS Category Date Time Status Covid-19 Nasal PCR Sendout Corey Stat Lab 01/20/20 13:12 Received Strep Screen Confirmation Stat Micro 01/20/20 12:55 Received [facility] [place] - General Stated complaint: swollen throat, covid exposure Time Seen by Provider: 01/20/20 13:15 Mode of Arrival: Ambulatory Source of Information: Patient Limitations: No Limitations Description of Symptoms (Recalled from Triage Doc. by RN): PATIENT C/O PRODUCTIVE COUGH (GREEN SPUTUM/BLOOD), SORE THROAT, AND SNEEZING. STATES SHE WAS RECENTLY TREATED FOR STREP BUT DID NOT COMPLETE HER ANTIBIOTICS D/T DEVELOPING A YEAST INFECTION. SHE STATES SHE WAS ALSO RECENTLY EXPOSED TO AN ASYMPTOMATIC INDIVIDUAL WITH COVID HEENT Symptoms (Recalled from RN notes): Yes Resp Symptoms (Recalled from RN notes): Yes Skin Symptoms (Recalled from RN notes): No MS Symptoms (Recalled from RN notes): No Functional Status (Recalled from RN notes): WNL - History of Present Illness Provider Complaint: she is here to have a COVID-19 test. She needs a negative test to be allowed to go back to school. She also continues to have sore throat. She was treated with oral antibiotics last week for strep throat. She did not complete the antibiotics because she got a yeast infection. - Related Data Home Medications Medication Instructions Recorded Confirmed buPROPion HCL [Bupropion Xl] 150 mg PO DAILY 01/12/20 01/12/20 Previous Rx's Medication Instructions Recorded Amoxicillin/Potassium Clav 1 tab PO Q12H 10 Days #20 tab 01/12/20 [Augmentin 875-125 Tablet] Ondansetron [Zofran 4mg ODT] 4 mg PO Q8HP PRN #20 tab.rapdis 01/12/20 Azithromycin [Z-Lucas 250mg Tab*] 250 mg PO UD DOSE PK #6 tab 01/20/20 Fluconazole [Diflucan 150mg tab] 150 mg PO ONCE #1 tab 01/20/20 Allergies Allergy/AdvReac Type Severity Reaction Status Date / Time No Known Allergies Allergy Verified 12/16/19 08:39 - Worker's Comp Is this a Worker's Comp case?: No [facility] History - Hepatitis A Screen Drug use history?: No High risk
[2020-01-20 13:44] VITALS: BP 132/78; PULSE 88; RESP 18; TEMP 36.7; O2SAT 99
[2020-01-20 19:13] LABS: UTC Strep Screen (Rapid) Negative (Negative)
[2020-01-21 15:28] LABS: Covid-19 Nasal PCR Sendout Lex Not Detected
== END 2020-01-20 13:50 | disposition home or self-care (01) ==
PROVIDERS: Emergency Provider Nurse Practitioner Family; PCP Physician Assistant
DX: J02.0 Streptococcal pharyngitis (principal); Z20.828 Contact with and (suspected) exposure to other viral communicable diseases; F41.8 Other specified anxiety disorders; F17.210 Nicotine dependence, cigarettes, uncomplicated
CPT/HCPCS: 87880; 99202; U0004

== ENCOUNTER 2020-04-25 20:47 | Emergency (ER) | payer OTHER, SELFPAY ==
[2020-04-25 20:48] VITALS: BP 161/92; PULSE 94; RESP 16; TEMP 37; O2SAT 98; BMI 34.0; BMI 34.5
--- NOTE | 2020-04-25 21:12 | CT_ITS ---
PROCEDURE: CT LUMBAR SPINE WO CON CLINICAL HISTORY: lower back pain Low back pain radiating down left leg COMPARISON: No exams were available for comparison TECHNIQUE: Axial images obtained with sagittal and coronal reformats. All CT scans at the facility use one or more dose reduction, viz: automated exposure control, ma/kV adjustment per patient size (including targeted exams where dose is matched to indication, i.e. head), or iterative reconstruction technique. FINDINGS: There is normal alignment. No acute fracture or dislocation is evident. There is bilateral pars defects at L5 without spondylolisthesis. These appear chronic. Asymmetric bulging disc versus disc protrusion centrally and on the left noted at L5-S1 causing left lateral recess and foraminal narrowing. IMPRESSION: 1. Asymmetric bulging disc versus central left paracentral disc bulge at L5-S1 which may be impinging upon the S1 and L5 nerve root. MRI may provide better evaluation. 2. Bilateral pars defect at L5 Dictated by: Ashwin Reilly MD 04/26/2020 07:51 Ashwin Reilly MD in [place] 04/26/2020 07:51
[2020-04-25 21:15] LABS: Microscopic, Urine URINE MICROSCOPIC (MICROSCOPIC)
[2020-04-25 21:18] VITALS: BP 151/86; PULSE 81; RESP 16; O2SAT 98
[2020-04-25 21:23] LABS: Appearance,Urine TURBID (Clear); Bilirubin,Urine Negative (Negative); Blood, Urine 3+ (Negative); Color,Urine RED (Yellow); Glucose,Urine (UA) Negative (Negative); Ketones,Urine TRACE (Negative); Leukocyte Esterase,Urine TRACE (Negative); Nitrate,Urine Negative (Negative); Protein,Urine 2+ (Negative); Specific Gravity, Urine >= 1.030 (1.005-1.030)
[2020-04-25 21:24] LABS: Urine Pregnancy, HCG Qual. Negative (Negative)
[2020-04-25 21:25] LABS: RBC,Urine TNTC #/hpf (0-3)
[2020-04-25 21:34] LABS: Basophils % 0.3 % (0.1-2.0); Eosinophils # 0.1 K/mm3 (0.0-0.4); Eosinophils % 0.7 % (0.1-12.0); Hematocrit 37.4 % (37.0-47.0); Hemoglobin 11.8 g/dL (12.2-16.2); Lymphocytes # 2.8 K/mm3 (0.7-4.5); Lymphocytes % 37.2 % (10-50); Mean Corpuscular HGB Conc 31.5 g/dL (31.8-35.4); Mean Corpuscular Hemoglobin 25.4 pg (27.0-31.2); Mean Corpuscular Volume 80.8 fl (81-99); Mean Platelet Volume 8.3 fl (7.4-10.4); Monocytes # 0.3 K/mm3 (0.1-1.0); Monocytes % 3.8 % (1.7-9.3); Neutrophils # 4.3 K/mm3 (1.8-7.8); Platelet Count 458 K/mm3 (142-424); Red Blood Count 4.63 M/mm3 (4.20-5.40); Red Cell Distribution Width 16.8 % (11.5-17.5); White Blood Count 7.4 K/mm3 (4.8-10.8)
[2020-04-25 21:37] LABS: Chloride 106 mmol/L (98-107)
[2020-04-25 21:38] LABS: Potassium 3.8 mmoL/L (3.5-5.1); Sodium 139 mmol/L (136-145)
[2020-04-25 21:40] LABS: Alanine Aminotransferase 17 U/L (12-78); Alkaline Phosphatase 91 U/L (38-126); Aspartate Amino Transferase 20 U/L (14-36); Bilirubin,Total 0.2 mg/dl (0.2-1.3); Blood Urea Nitrogen 9 mg/dl (7-17); Creatinine Clearance Estimated 163 mL/min (50-200); Estimated Glomerular Filt Rate 78 ml/min (>60); GFR (African American) 94 ML/MIN (>60)
[2020-04-25 21:41] LABS: Albumin Level 4.4 g/dl (3.5-5.0); Albumin/Globulin Ratio 1.3 (1.1-1.8); Anion Gap 11.8 mEq/L (5-15); Calcium 9.5 mg/dl (8.4-10.2); Carbon Dioxide 25 mmol/L (22.0-30.0); Globulin 3.5 g/dL (1.3-3.2); Glucose 132 mg/dl (74-100); Total Protein,Serum 7.9 g/dl (6.3-8.2)
[2020-04-25 21:46] LABS: C-Reactive Protein 4.5 mg/L (0-4)
[2020-04-25 21:50] VITALS: BP 148/88; PULSE 84; RESP 15; O2SAT 99
[2020-04-25 21:57] LABS: Erythrocyte Sedimentation Rate 21 mm/hr (0-20)
--- NOTE | 2020-04-25 21:57 | PC.NURSE ---
pt to RAD via wheelchair
--- NOTE | 2020-04-25 22:10 | PC.NURSE ---
pt back from RAD
[2020-04-25 22:14] VITALS: BP 141/90; PULSE 83; RESP 16; O2SAT 98
--- NOTE | 2020-04-25 22:24 | HMH.EDBACK ---
ED Disposition Clinical Impression: Lumbar radiculopathy UTI (urinary tract infection) Qualifiers: Urinary tract infection type: site unspecified Hematuria presence: without hematuria Qualified Code(s): N39.0 - Urinary tract infection, site not specified Disposition: Home, Self-Care Condition on Discharge: Good Instructions: DI for Low Back Pain Additional Instructions: use meds and see pcp for follow up and urine culture Prescriptions: levoFLOXacin [Levaquin 500mg tab] 500 mg PO DAILY #7 tab Transmission Status: Pending to [facility] predniSONE [Prednisone 20mg Tab] 20 mg PO BID #10 tab Transmission Status: Pending to [facility] Referrals: Angle Bright PA [Primary Care Provider] - - Critical Care Critical Care Time: No Attestation: On 04/25/20, the high probability of a clinically significant, sudden or life threatening deterioration of the following system(s) required my full and direct attention, intervention and personal management. The time I documented below is in addition to time spent performing reported procedures but includes the following listed in this critical care notation. Medical Decision Making - Medical Records Medical records reviewed: Yes: I reviewed the patient's medical records. - Robert Inquiry Pt receiving controlled substance: No Vital Signs: 04/25/20 20:48 04/25/20 21:18 04/25/20 21:50 Temperature 98.6 F Temperature Source Oral Pulse Rate [Left Radial] 94 H 81 84 Respiratory Rate 16 16 15 Blood Pressure [Right Arm] 161/92 H 151/86 H 148/88 H Blood Pressure Mean [Right Arm] 115 107 108 Blood Pressure Source [Right Arm] Automatic Cuff Automatic Cuff Automatic Cuff Blood Pressure Position [Right Arm] Sitting Sitting Sitting 02 Sat by Pulse Oximetry 98 98 99 Oxygen Delivery Method Room Air Room Air Room Air 04/25/20 22:14 Temperature Temperature Source Pulse Rate [Left Radial] 83 Respiratory Rate 16 Blood Pressure [Right Arm] 141/90 H Blood Pressure Mean [Right Arm] 107 Blood Pressure Source [Right Arm] Automatic Cuff Blood Pressure Position [Right Arm] Sitting 02 Sat by Pulse Oximetry 98 Oxygen Delivery Method Room Air - Lab Data Lab results reviewed: Yes: I reviewed the patient's lab results. Lab Results 04/25/20 21:03: Urine Color Red, Urine Appearance Turbid, Urine pH 7.0, Ur Specific [place] >= 1.030, Urine Protein 2+, Urine Glucose (UA) Negative, Urine Ketones Trace, Urine Blood 3+, Urine Nitrate Negative, Urine Bilirubin Negative, Urine Urobilinogen 1.0, Ur Leukocyte Esterase Trace, Urine RBC Tntc, Urine WBC 10-20 04/25/20 21:03: Urine HCG, Qual Negative 04/25/20 21:25: WBC 7.4, RBC 4.63, Hgb 11.8 L, Hct 37.4, MCV 80.8 L, MCH 25.4 L, MCHC 31.5 L, RDW 16.8, Plt Count 458 H, MPV 8.3, Neut % (Auto) 58.0, Lymph % (Auto) 37.2, [place] % (Auto) 3.8, Eos % (Auto) 0.7, Baso % (Auto) 0.3, Neut # (Auto) 4.3, Lymph # (Auto) 2.8, [place] # (Auto) 0.3, Eos # (Auto) 0.1, Baso # (Auto) 0.0, ESR 21 H 04/25/20 21:25: Sodium 139, Potassium 3.8, Chloride 106, Carbon Dioxide 25, Anion Gap 11.8, BUN 9, Creatinine 0.90, Estimated Creat Clear 163, Estimated GFR 78, Est GFR ( Amer) 94, Glucose 132 H, Calcium 9.5, Total Bilirubin 0.2, AST 20, ALT 17, Alkaline Phosphatase 91, C-Reactive Protein 4.5 H, Total Protein 7.9, Albumin 4.4, Globulin 3.5 H, Albumin/Globulin Ratio 1.3 Result diagrams: 04/25/20 21:25 04/25/20 21:25 Orders (Tests/Meds): ED MEDICATIONS Generic Name Dose Route Start Last Admin Trade Name Freq PRN Reason Stop Dose Admin Sodium Chloride 1,000 mls @ 999 mls/hr 04/25/20 22:00 04/25/20 21:51 Sod Chlor 0.9% 1000ml Bag IV 04/25/20 23:00 999 mls/hr .Q1H1M MARIBELL Administration Discontinued Medications Generic Name Dose Route Start Last Admin Trade Name Freq PRN Reason Stop Dose Admin Methylprednisolone Sodium Succinate 125 mg 04/25/20 21:50 04/25/20 21:51 Methylprednisolone Sod Patel
[2020-04-25 22:38] VITALS: BP 147/89; PULSE 88; RESP 14; TEMP 36.6; O2SAT 100
== END 2020-04-25 22:40 | disposition home or self-care (01) ==
PROVIDERS: Emergency Provider Emergency Medicine; PCP Physician Assistant
DX: M54.16 Radiculopathy, lumbar region (principal); N39.0 Urinary tract infection, site not specified; F41.8 Other specified anxiety disorders; F17.210 Nicotine dependence, cigarettes, uncomplicated
CPT/HCPCS: 72131; 80053; 81001; 81025; 85025; 85651; 86140; 87086; 96365; 96375; 99283

== ENCOUNTER → 2020-05-12 16:46 | Outpatient (CLI) | payer OTHER, SELFPAY ==
--- NOTE | 2020-05-12 16:46 | MR_ITS ---
PROCEDURE: MR LUMBAR SPINE WO CON CLINICAL INDICATION: RT SIDED LBP. RT LEG PAIN, NUMBNESS, AND TINGLING [id number] BUT HAS GOTTEN WORSE [id number]. NO INJURY. PRIOR CT 04-25-20 COMPARISON: CT CT LUMBAR SPINE WO CON from 04/25/2020 TECHNIQUE: Standard multiplanar multiecho sequences are performed without contrast. 3-D MIP and myelographic images are also rendered and reviewed FINDINGS: Normal alignment. The spinal cord ends at the L1 level. The disc spaces are well preserved. L1-L2, L2-L3, L3-L4, and L4-5 have an unremarkable appearance. There is minimal central disc protrusion at L5-S1 without impingement. The soft tissue density noted on the CT scan on the left represents a conjoined nerve root and not a disc herniation. IMPRESSION: Minimal central disc protrusion at L5-S1. 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
== END ==
PROVIDERS: PCP Physician Assistant; Visit Provider Physician Assistant
DX: M51.16 Intervertebral disc disorders with radiculopathy, lumbar region (principal)
CPT/HCPCS: 72148; 76376

== ENCOUNTER 2020-05-31 14:00 | Outpatient (RCR) | payer OTHER, SELFPAY ==
--- NOTE | 2020-05-12 15:40 | HMH.PTOPEV ---
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 Pt reports R > L sided LBP, and R LE radicular s/s from R hip to foot. Pt reports improved s/s over the last 7- 10 days. Chief Complaint Pain,Stiff,Paresthesia Symptom Type Ache,Dull Symptoms Relieved By Rest/Positioning,Heat Symptoms Aggravated By Bending/Stooping,Walking, Lifting Prior Functional Limitations Lifting,Housework,Bending/ Stooping Current Functional Limitations Lifting,Housework,Bending/ Stooping Symptom Description Constant but Variable Level of pain today (0-10) 2 Pain scale - at its best (0-10) 2 Pain scale - at its worst (0-10) 7 Lumbopelvic Eval Posture Thoracic Spine Posture Standing Position Neutral Lumbar Spine Posture Standing Position Neutral Gait Observation General Gait Pattern Observation No Deviations/Normal Palapation tenderness right lumbar spinal tenderness Yes: 3/4 paraspinal tenderness Yes: 1-2/4 Lumbar/Sacral Palpation Findings Tenderness Accessory Movement L-spine Vertebrae Accessory Movements Central [place] that Elicit Symptoms L3 bilateral L4 bilateral Range of Motion Lumbar Spine Active Flexion Range of 0-40 Motion (degrees) Lumbar Spine Active Extension Range of 0-20 Motion (degrees) Left Lumbar Spine Lateral Flexion Active 0-20 Range of Motion (degrees) Right Lumbar Spine Lateral Flexion 0-20 Active Range of Motion (degrees) Lumbar Spine ROM Limitations Pain Manual Muscle Test Bilateral Knee Extension Strength Grade 5 Normal Knee Flexion Strength Grade 4- Good- Hip Flexion Strength Grade 4 Good Extensor Hallucis Longus Strength Grade 5 Normal Ankle Dorsiflexion Strength Grade 5 Normal Gastronemius/Soleus Strength Grade 5 Normal DTR Rt Patellar 1+ Lt Patellar 1+ Rt Gastroc/Soleus 1+ Lt Gastroc/Soleus 1+ Special Tests Hip Piriformis Test Negative Left,Negative Right Hip Mynor
== END 2020-05-31 14:05 | disposition home or self-care (01) ==
LOC: PT 14:00
PROVIDERS: PCP Physician Assistant; Visit Provider Physician Assistant
DX: M51.16 Intervertebral disc disorders with radiculopathy, lumbar region (principal)
CPT/HCPCS: 97010; 97014; 97035; 97110; 97163; G0283

== ENCOUNTER 2020-08-24 22:58 | Emergency (ER) | payer OTHER, SELFPAY ==
[2020-08-24 23:11] VITALS: BMI 25.8
[2020-08-24 23:15] VITALS: BP 151/97; PULSE 103; RESP 18; TEMP 38.4; O2SAT 99; BMI 30.5
[2020-08-24 23:23] LABS: Urine Pregnancy, HCG Qual. Negative (Negative)
--- NOTE | 2020-08-24 23:33 | CT_ITS ---
PROCEDURE: CT ABDOMEN PELVIS W CON CLINICAL INDICATION: suprapubic pain Suprapubic pain and fever COMPARISON: No exams were available for comparison TECHNIQUE: IV Contrast: 75ML Isovue 370 Oral Contrast None Axial images obtained with sagittal and coronal reformats. All CT scans at the facility use one or more dose reduction, viz: automated exposure control, ma/kV adjustment per patient size (including targeted exams where dose is matched to indication, i.e. head), or iterative reconstruction technique. FINDINGS: LOWER THORAX: No acute finding ABDOMEN & PELVIS: Liver, spleen, adrenal glands, pancreas, and kidneys have an unremarkable appearance. Gallbladder is contracted with mild nonspecific wall thickening. No intestinal obstruction or free air. No evidence of appendicitis. Mildly prominent low-density changes within the endometrial cavity of the uterus. There is a small right ovarian cyst at 13 mm. No acute bony findings. IMPRESSION: 1. No acute finding. 2. 13 mm right ovarian cyst with mildly prominent low-density changes of the endometrium. Pelvic ultrasound may provide further evaluation. Dictated by: Ashwin Reilly MD 08/25/2020 06:32 Ashwin Reilly MD in [place] 08/25/2020 06:32
[2020-08-24 23:43] LABS: Microscopic, Urine URINE MICROSCOPIC (MICROSCOPIC)
[2020-08-24 23:46] LABS: Appearance,Urine CLEAR (Clear); Basophils # 0.1 K/mm3 (0-0.2); Basophils % 1.3 % (0.1-2.0); Bilirubin,Urine Negative (Negative); Blood, Urine Negative (Negative); Color,Urine YELLOW (Yellow); Eosinophils % 0.3 % (0.1-12.0); Glucose,Urine (UA) Negative (Negative); Hematocrit 32.2 % (37.0-47.0); Hemoglobin 10.1 g/dL (12.2-16.2); Ketones,Urine Negative (Negative); Leukocyte Esterase,Urine TRACE (Negative); Lymphocytes # 1.3 K/mm3 (0.7-4.5); Lymphocytes % 25.7 % (10-50); Mean Corpuscular HGB Conc 31.5 g/dL (31.8-35.4); Mean Corpuscular Hemoglobin 24.1 pg (27.0-31.2); Mean Corpuscular Volume 76.4 fl (81-99); Mean Platelet Volume 7.6 fl (7.4-10.4); Monocytes # 0.3 K/mm3 (0.1-1.0); Monocytes % 6.8 % (1.7-9.3); Neutrophils # 3.3 K/mm3 (1.8-7.8); Neutrophils % 65.9 % (37.0-80.0); Nitrate,Urine Negative (Negative); Platelet Count 380 K/mm3 (142-424); Protein,Urine 2+ (Negative); Red Blood Count 4.21 M/mm3 (4.20-5.40); Red Cell Distribution Width 16.1 % (11.5-17.5); Urobilinogen,Urine 0.2 EU/dl (0.2)
[2020-08-24 23:47] LABS: Adenovirus,PCR Not Detected (NotDetected); Bordetella Pertussis Not Detected (NotDetected); Chlamydophila Pneumoniae, PCR Not Detected (NotDetected); Coronavirus 19, PCR Not Detected (NotDetected); Coronavirus 229E Not Detected (NotDetected); Coronavirus NL63 Not Detected (NotDetected); Coronavirus OC43 Not Detected (NotDetected); Coronovirus HKU1,PCR Not Detected (NotDetected); Human Metapneumovirus Not Detected (NotDetected); Influenza A, PCR Not Detected (NotDetected); Influenza AH1, 2009 Not Detected (NotDetected); Influenza AH1, PCR Not Detected (NotDetected); Influenza AH3,PCR Not Detected (NotDetected); Influenza B, PCR Not Detected (NotDetected); Mycoplasma Pneumoniae, PCR Not Detected (NotDetected); Parainfluenza 1, PCR Not Detected (NotDetected); Parainfluenza 2, PCR Not Detected (NotDetected); Parainfluenza 3, PCR Not Detected (NotDetected); Parainfluenza 4, PCR Not Detected (NotDetected); Respiratory Syncytial Virus Not Detected (NotDetected); Rhinovirus/Enterovirus Not Detected (NotDetected)
[2020-08-24 23:53] LABS: Amorphous Sediment,Urine 1+ /lpf; Bacteria,Urine 1+ /lpf; Mucus,Urine 1+ /lpf
[2020-08-24 23:55] LABS: Alanine Aminotransferase 12 U/L (12-78); Albumin Level 4.1 g/dl (3.5-5.0); Albumin/Globulin Ratio 1.4 (1.1-1.8); Alkaline Phosphatase 91 U/L (38-126); Amylase 59 U/L (30-110); Anion Gap 9.7 mEq/L (5-15); Aspartate Amino Transferase 21 U/L (14-36); Blood Urea Nitrogen 10 mg/dl (7-17); Calcium 8.9 mg/dl (8.4-10.2); Carbon Dioxide 28 mmol/L (22.0-30.0); Chloride 103 mmol/L (98-107); Creatinine Clearance Estimated 126 mL/min (50-200); Estimated Glomerular Filt Rate 69 ml/min (>60); GFR (African American) 83 ML/MIN (>60); Glucose 98 mg/dl (74-100); Lipase 44 U/L (23-300); Potassium 3.7 mmoL/L (3.5-5.1); Sodium 137 mmol/L (136-145); Total Protein,Serum 7.1 g/dl (6.3-8.2)
[2020-08-24 23:58] LABS: Bilirubin,Total 0.1 mg/dl (0.2-1.3)
[2020-08-24 23:58] LABS: Strep Scrn Group A (Rapid) Negative (Negative)
[2020-08-25 00:01] LABS: C-Reactive Protein 22.1 mg/L (0-4)
[2020-08-25 00:14] LABS: Procalcitonin 0.051 ng/mL (0.0-2.0)
--- NOTE | 2020-08-25 00:14 | XR_ITS ---
PROCEDURE: XR CHEST 2V CLINICAL HISTORY: fever COMPARISON: No exams were available for comparison FINDINGS: The cardiomediastinal silhouette and pulmonary vascularity are within normal limits. The lungs are clear without infiltrates, suspicious nodules, or pleural effusions. No acute bony abnormalities. IMPRESSION: No acute findings. Dictated by: Ashwin Reilly MD 08/25/2020 05:56 Ashwin Reilly MD in [place] 08/25/2020 05:56
[2020-08-25 00:25] LABS: Erythrocyte Sedimentation Rate 27 mm/hr (0-20)
--- NOTE | 2020-08-25 00:43 | HMH.EDHA ---
ED Disposition Clinical Impression: Febrile illness, acute Ovarian cyst Qualifiers: Laterality: right Qualified Code(s): N83.201 - Unspecified ovarian cyst, right side Anemia Qualifiers: Anemia type: unspecified type Qualified Code(s): D64.9 - Anemia, unspecified Disposition: Home, Self-Care Condition on Discharge: Good Instructions: DI for Headache Additional Instructions: call pcp for follow up Referrals: Angle Bright PA [Primary Care Provider] - - Critical Care Critical Care Time: No Attestation: On 08/24/20, the high probability of a clinically significant, sudden or life threatening deterioration of the following system(s) required my full and direct attention, intervention and personal management. The time I documented below is in addition to time spent performing reported procedures but includes the following listed in this critical care notation. Medical Decision Making - Medical Records Medical records reviewed: Yes: I reviewed the patient's medical records. - Robert Inquiry Pt receiving controlled substance: No Vital Signs: 08/24/20 23:15 Temperature 101.1 F H Temperature Source Oral Pulse Rate [Right] 103 H Respiratory Rate 18 Blood Pressure [Right Arm] 151/97 H Blood Pressure Mean [Right Arm] 115 Blood Pressure Source [Right Arm] Automatic Cuff Blood Pressure Position [Right Arm] Sitting 02 Sat by Pulse Oximetry 99 Oxygen Delivery Method Room Air - Lab Data Lab results reviewed: Yes: I reviewed the patient's lab results. Lab Results 08/24/20 23:10: Urine HCG, Qual Negative 08/24/20 23:32: WBC 5.0, RBC 4.21, Hgb 10.1 L, Hct 32.2 L, MCV 76.4 L, MCH 24.1 L, MCHC 31.5 L, RDW 16.1, Plt Count 380, MPV 7.6, Neut % (Auto) 65.9, Lymph % (Auto) 25.7, [place] % (Auto) 6.8, Eos % (Auto) 0.3, Baso % (Auto) 1.3, Neut # (Auto) 3.3, Lymph # (Auto) 1.3, [place] # (Auto) 0.3, Eos # (Auto) 0.0, Baso # (Auto) 0.1, ESR 27 H 08/24/20 23:32: Sodium 137, Potassium 3.7, Chloride 103, Carbon Dioxide 28, Anion Gap 9.7, BUN 10, Creatinine 1.00, Estimated Creat Clear 126, Estimated GFR 69, Est GFR ( Amer) 83, Glucose 98, Calcium 8.9, Total Bilirubin 0.1 L, AST 21, ALT 12, Alkaline Phosphatase 91, C-Reactive Protein 22.1 H, Total Protein 7.1, Albumin 4.1, Globulin 3.0, Albumin/Globulin Ratio 1.4, Amylase 59, Lipase 44, Procalcitonin 0.051 08/24/20 23:32: Urine Color Yellow, Urine Appearance Clear, Urine pH 7.0, Ur Specific [place] 1.020, Urine Protein 2+, Urine Glucose (UA) Negative, Urine Ketones Negative, Urine Blood Negative, Urine Nitrate Negative, Urine Bilirubin Negative, Urine Urobilinogen 0.2, Ur Leukocyte Esterase Trace, Urine RBC 3-5, Urine WBC 3-5, Ur Squamous Epith Cells 3-5, Amorphous Sediment 1+, Urine Bacteria 1+, Urine Mucus 1+ 08/24/20 23:42: Chlamy pneumoniae PCR Not detected, Adenovirus (PCR) Not detected, B. pertussis DNA (PCR) Not detected, Coronavirus OC43 (PCR) Not detected, Coronavirus HKU1 (PCR) Not detected, Coronavirus 229E (PCR) Not detected, SARS-CoV-2 (PCR) Not detected, Coronavirus NL63 (PCR) Not detected, Human Metapneumovir PCR Not detected, Influenza A (H1) PCR Not detected, Influ A (H1N1/09) PCR Not detected, Influenza A (H3) PCR Not detected, Influenza Type A (PCR) Not detected, Influenza Type B (PCR) Not detected, M. pneumoniae (PCR) Not detected, Parainfluenza 1 (PCR) Not detected, Parainfluenza 2 (PCR) Not detected, Parainfluenza 3 (PCR) Not detected, Parainfluenza 4 (PCR) Not detected, RSV (PCR) Not detected, Entero/Rhino (PCR) Not detected 08/24/20 23:42: Group A Strep Rapid Negative Result diagrams: 08/24/20 23:32 08/24/20 23:32 Orders (Tests/Meds): ED MEDICATIONS Generic Name Dose Route Start Last Admin Trade Name Freq PRN Reason Stop Dose Admin Sodium Chloride 1,000 mls @ 999 mls/hr 08/24/20 23:15 08/24/20 23:21 Sod Chlor 0.9% 1000ml Bag IV 08/25/20 00:15 999 mls/hr .Q1H1M MARIBELL Administration Discontinued Medications Generic Name Dose Route Star
[2020-08-25 01:38] VITALS: BP 144/86; PULSE 92; RESP 16; TEMP 37.2; O2SAT 98
== END 2020-08-25 01:42 | disposition home or self-care (01) ==
PROVIDERS: Emergency Provider Emergency Medicine; PCP Physician Assistant
DX: N83.201 Unspecified ovarian cyst, right side (principal); D64.9 Anemia, unspecified; Z20.822 Contact with and (suspected) exposure to COVID-19; F17.210 Nicotine dependence, cigarettes, uncomplicated
CPT/HCPCS: 71046; 74177; 80053; 81001; 81025; 82150; 83690; 84145; 85025; 85651; 86140; 87430; 87581; 87633; 87798; 96365; 96375; 99283; Q9967

== ENCOUNTER → 2020-09-01 18:15 | Outpatient (CLI) | payer OTHER, SELFPAY ==
[2020-09-03 10:12] LABS: Rapid Plasma Reagin Ab Titer Non Reactive (NonRea<1:1)
[2020-09-04 15:40] LABS: HSV 1 IgG, Type Spec <0.91 index (0.00-0.90); HSV 2 IgG Supplemental Testing Positive (Negative); HSV 2 IgG, Type Spec 3.42 index (0.00-0.90)
[2020-09-06 23:41] LABS: Neisseria gonorrhoeae, NAA Negative (Negative)
== END ==
PROVIDERS: Visit Provider Nurse Practitioner Family
DX: Z20.2 Contact with and (suspected) exposure to infections with a predominantly sexual mode of transmission (principal)
CPT/HCPCS: 86592; 86695; 86790; 87491; 87591

== ENCOUNTER → 2020-11-01 14:07 | Outpatient (CLI) | payer OTHER, SELFPAY ==
[2020-11-01 15:41] LABS: HCG,Quantitative 13 mIU/ml (0-5.42)
== END ==
PROVIDERS: Visit Provider Physician Assistant
DX: N91.2 Amenorrhea, unspecified (principal)
CPT/HCPCS: 36415; 84702

== ENCOUNTER → 2020-12-16 14:07 | Outpatient (CLI) | payer OTHER, SELFPAY ==
[2020-12-22 08:20] LABS: QuantiFERON-TB Gold Plus Negative (Negative)
== END ==
PROVIDERS: Visit Provider Family Medicine
DX: Z11.1 Encounter for screening for respiratory tuberculosis (principal)
CPT/HCPCS: 36415; 86480

== ENCOUNTER 2021-03-19 17:28 | Emergency (ER) | payer OTHER, SELFPAY ==
[2021-03-19 17:30] VITALS: BP 120/81; PULSE 120; RESP 19; TEMP 36.8; O2SAT 98; BMI 37.8
[2021-03-19 18:02] LABS: Apearance,Urine Clear (Clear); Color,Urine Red (Yellow)
[2021-03-19 18:03] LABS: Bilirubin,Urine 1+ (Negative); Blood, Urine 3+ (Negative); Glucose,Urine (UA) 1+ (Negative); Ketones,Urine TRACE (Negative); Protein,Urine 1+ (Negative); Urobilinogen,Urine 1 EU/dl (0.2)
[2021-03-19 18:04] LABS: UTC Leukocyte Esterase,Urine Negative (Negative); UTC Nitrate,Urine Positive (Negative)
--- NOTE | 2021-03-19 18:11 | HMH.EDUTC ---
[facility] [place] Clinical Impression: Exposure to COVID-19 virus UTI (urinary tract infection) Qualifiers: Urinary tract infection type: acute cystitis Hematuria presence: with hematuria Qualified Code(s): N30.01 - Acute cystitis with hematuria Disposition: Home, Self-Care Condition on Discharge: Good Instructions: DI for COVID-19 (Suspected or Confirmed ), Preventing the Spread of Coronavirus Discharge Instructions, Urinary Tract Infection Additional Instructions: Increase fluids, water and not soda or tea. Can drink cranberry juice or cranberry extract. White front to back Wear cotton underwear Empty bladder after intercourse Start antibiotics immediately and make sure you take the full course although you may start to see improvement over the next 48 hours. You can eat yogurt or take probiotics to decrease diarrhea or yeast infection caused by the antibiotic Be sure to follow-up anytime for new or worsening symptoms in 48 hours for wound urine culture results be sure to let you PCP no recent urine for culture so they can request records and ensure that you have appropriate antibiotic if you are not getting better or getting worse. If symptoms worsen or do not improve return or be seen in the ER. Follow-up with primary care this week. covid swab was sent to lab, call later today for results. self isolate until test results are known to be negative Prescriptions: cephALEXin [Cephalexin 500mg Tab] 500 mg PO BID 7 Days #14 tab Prescription Printed Referrals: Angle Bright PA [Primary Care Provider] - Time of Disposition: 18:20 Medical Decision Making - Robert Inquiry Pt receiving controlled substance: No Vital Signs: 03/19/21 17:30 Temperature 98.3 F Temperature Source Oral Pulse Rate [Right Brachial] 120 H Respiratory Rate 19 Blood Pressure [Right Arm] 120/81 Blood Pressure Mean [Right Arm] 94 Blood Pressure Source [Right Arm] Automatic Cuff Blood Pressure Position [Right Arm] Sitting 02 Sat by Pulse Oximetry 98 Oxygen Delivery Method Room Air - Lab Data Lab Results 03/19/21 17:31: Urine Color Red, Urine Appearance Clear, Urine pH 5.0, Ur Specific [employer] 1.030, Urine Protein 1+, Urine Glucose (UA) 1+, Urine Ketones Trace, Urine Blood 3+, Urine Nitrate Positive A, Urine Bilirubin 1+ A, Urine Urobilinogen 1, Ur Leukocyte Esterase Negative Orders (Tests/Meds): ORDERS Category Date Time Status Covid-19 Nasal PCR ([facility]) Routine Lab 03/19/21 17:40 Received Urine Culture Stat Micro 03/19/21 17:40 Received [facility] UTC HPI - General Chief complaint: Urgent [facility] Stated complaint: covid test, poss UTI Time Seen by Provider: 03/19/21 18:11 Mode of Arrival: Ambulatory Source of Information: Patient Limitations: No Limitations Description of Symptoms (Recalled from Triage Doc. by RN): PATIENT C/O BURNING AND FREQUENCY WITH URINATION X 2 DAYS. PATIENT ALSO REQUESTING A COVID TEST HEENT Symptoms (Recalled from RN notes): No Resp Symptoms (Recalled from RN notes): No Skin Symptoms (Recalled from RN notes): No MS Symptoms (Recalled from RN notes): No Functional Status (Recalled from RN notes): WNL - History of Present Illness Provider Complaint: 26 yr old female presents for burning,freq,urgancy with voiding and request covid test. pt states she had rapid test at and was told she is positive - Related Data Previous Rx's Medication Instructions Recorded bupropion HCl 150 mg 24 hr tablet, 150 mg PO DAILY #90 tab 04/27/20 extended release phentermine 37.5 mg tablet 37.5 mg PO DAILY #30 tab 10/22/20 cephALEXin [Cephalexin 500mg Tab] 500 mg PO BID 7 Days #14 tab 03/19/21 Allergies Allergy/AdvReac Type Severity Reaction Status Date / Time No Known Allergies Allergy Verified 10/22/20 14:21 - Worker's Comp Is this a Worker's Comp case?: No [facility] History - Hepatitis A Screen Drug use history?: No High risk sexual behaviors?: No History of sexually transmit
[2021-03-19 18:21] VITALS: BP 120/81; PULSE 120; RESP 19; TEMP 36.8; O2SAT 98
== END 2021-03-19 18:24 | disposition home or self-care (01) ==
PROVIDERS: Emergency Provider Nurse Practitioner Family; PCP Physician Assistant
DX: N30.01 Acute cystitis with hematuria (principal); Z20.822 Contact with and (suspected) exposure to COVID-19; F41.8 Other specified anxiety disorders; F17.210 Nicotine dependence, cigarettes, uncomplicated
CPT/HCPCS: 81003; 87086; 99202; C9803; G0463; U0003; U0005

== ENCOUNTER → 2021-08-29 09:05 | Outpatient (CLI) | payer OTHER, SELFPAY ==
[2021-08-29 14:01] LABS: HCG Qualitative, Serum Negative (Negative)
[2021-08-29 14:05] LABS: HCG,Quantitative < 2 mIU/ml (0-5.42)
== END ==
PROVIDERS: PCP Physician Assistant; Visit Provider Physician Assistant
DX: Z32.00 Encounter for pregnancy test, result unknown (principal); Z71.2 Person consulting for explanation of examination or test findings
CPT/HCPCS: 84702; 84703

== ENCOUNTER → 2021-08-31 12:54 | Outpatient (CLI) | payer OTHER, SELFPAY ==
[2021-08-31 15:12] LABS: HCG,Quantitative 13 mIU/ml (0-5.42)
== END ==
PROVIDERS: Visit Provider Physician Assistant
DX: Z32.00 Encounter for pregnancy test, result unknown (principal)
CPT/HCPCS: 36415; 84702

== ENCOUNTER → 2021-09-01 16:01 | Outpatient (CLI) | payer OTHER, SELFPAY ==
[2021-09-01 18:17] LABS: HCG,Quantitative 29 mIU/ml (0-5.42)
[2021-09-03 08:22] LABS: Progesterone 14.2 ng/mL (.)
== END ==
PROVIDERS: Visit Provider Obstetrics & Gynecology
DX: Z32.00 Encounter for pregnancy test, result unknown (principal)
CPT/HCPCS: 36415; 84144; 84702

== ENCOUNTER → 2021-09-08 12:32 | Outpatient (CLI) | payer OTHER, SELFPAY ==
[2021-09-08 14:13] LABS: HCG,Quantitative 657 mIU/ml (0-5.42)
== END ==
PROVIDERS: Visit Provider Obstetrics & Gynecology
DX: Z32.00 Encounter for pregnancy test, result unknown (principal)
CPT/HCPCS: 36415; 84702

== ENCOUNTER 2021-09-14 10:30 | Outpatient (CLI) | payer OTHER, SELFPAY ==
[2021-09-14] VITALS (21 sets, daily range): BP systolic 113–164; BP diastolic 61–94; PULSE 82–100; RESP 18–19; TEMP 36.4–36.8; O2SAT 99–100; BMI 40.3
--- NOTE | 2021-09-14 10:33 | US_ITS ---
FINAL REPORT CLINICAL HISTORY: Early , RT Sided pain, Pelvic Pain FINDINGS: Sonographic images of the pelvis were obtained. A gestational sac is present with a yolk sac measuring 4 mm. No pole is identified, consistent with an early which is too small for dates. There is a 1.9 cm probable corpus luteum cyst in the right ovary. The left ovary is within normal limits. Small follicles are seen bilaterally. IMPRESSION: Gestational sac with a yolk sac is present. No pole identified, consistent with an early too small for dates. Could be further evaluated with follow-up ultrasound. Reviewed, Interpreted and Dictated by Scott Alexander III, MD Transcribed by Bhavana Guardado Authenticated by Scott Alexander III, MD on 09/14/2021 12:22:[address] [facility]
[2021-09-14 11:56] LABS: Alanine Aminotransferase 14 U/L (12-78); Albumin Level 3.9 g/dl (3.5-5.0); Albumin/Globulin Ratio 1.3 (1.1-1.8); Alkaline Phosphatase 80 U/L (38-126); Anion Gap 11.8 mEq/L (5-15); Aspartate Amino Transferase 19 U/L (14-36); Basophils % 0.6 % (0.1-2.0); Bilirubin,Total 0.4 mg/dl (0.2-1.3); Blood Urea Nitrogen 10 mg/dl (7-17); Calcium 8.9 mg/dl (8.4-10.2); Carbon Dioxide 23 mmol/L (22.0-30.0); Chloride 105 mmol/L (98-107); Eosinophils % 0.5 % (0.1-12.0); Estimated Glomerular Filt Rate 103 ml/min (>60); GFR (African American) 124 ML/MIN (>60); Globulin 2.9 g/dL (1.3-3.2); Glucose 98 mg/dl (74-100); Lymphocytes # 1.3 K/mm3 (0.7-4.5); Lymphocytes % 22.3 % (10-50); Mean Corpuscular HGB Conc 29.1 g/dL (31.8-35.4); Mean Corpuscular Hemoglobin 17.4 pg (27.0-31.2); Mean Corpuscular Volume 59.7 fl (81-99); Mean Platelet Volume 7.6 fl (7.4-10.4); Monocytes # 0.4 K/mm3 (0.1-1.0); Monocytes % 6.4 % (1.7-9.3); Neutrophils # 3.9 K/mm3 (1.8-7.8); Neutrophils % 70.2 % (37.0-80.0); Platelet Count 605 K/mm3 (142-424); Potassium 3.8 mmoL/L (3.5-5.1); Red Blood Count 3.85 M/mm3 (4.20-5.40); Red Cell Distribution Width 21.1 % (11.5-17.5); Sodium 136 mmol/L (136-145); Total Protein,Serum 6.8 g/dl (6.3-8.2); White Blood Count 5.6 K/mm3 (4.8-10.8)
[2021-09-14 12:06] LABS: Hemoglobin 6.7 g/dL (12.2-16.2)
[2021-09-14 12:12] LABS: HCG,Quantitative 7301 mIU/ml (0-5.42)
--- NOTE | 2021-09-14 17:13 | PC.NURSE ---
09/14/21 1700 report called to Patricia White RN, update given on pt current condition. Pt escorted to 2nd floor- room 207, pt able to ambulate to inpt room to finish outpt blood transfusion. Still awaiting lab notification that blood is ready.
--- NOTE | 2021-09-14 17:43 | PC.NURSE ---
CORRECTION: uNABLE TO CHANGE bp ON PT'S tar. sTART bp WAS @ 1740 AND WAS 146/83. Nurse entered BP in error. Charge nurse notified.
[2021-09-14 23:59] LABS: Hematocrit 26.7 % (37.0-47.0)
[2021-09-15 00:14] LABS: Hemoglobin 8.4 g/dL (12.2-16.2)
[2021-09-15 08:17] LABS: Progesterone 10.7 ng/mL (.)
== END 2021-09-14 23:09 | disposition home or self-care (01) ==
LOC: LAB 15:00 → INF 15:05
PROVIDERS: PCP Physician Assistant; Visit Provider Obstetrics & Gynecology
DX: R10.9 Unspecified abdominal pain (principal); O26.899 Other specified pregnancy related conditions, unspecified trimester; R10.2 Pelvic and perineal pain; D64.9 Anemia, unspecified
CPT/HCPCS: 36415; 36430; 76817; 80053; 82776; 84144; 84702; 85014; 85018; 85025; 86850; P9016

== ENCOUNTER → 2021-10-06 12:51 | Outpatient (CLI) | payer OTHER, SELFPAY ==
[2021-10-06 14:39] LABS: Basophils % 0.3 % (0.1-2.0); Eosinophils % 0.6 % (0.1-12.0); Hematocrit 34.1 % (37.0-47.0); Hemoglobin 10.4 g/dL (12.2-16.2); Lymphocytes # 1.7 K/mm3 (0.7-4.5); Mean Corpuscular HGB Conc 30.7 g/dL (31.8-35.4); Mean Corpuscular Hemoglobin 23.3 pg (27.0-31.2); Mean Corpuscular Volume 75.9 fl (81-99); Mean Platelet Volume 8.2 fl (7.4-10.4); Monocytes # 0.2 K/mm3 (0.1-1.0); Monocytes % 3.3 % (1.7-9.3); Neutrophils # 3.7 K/mm3 (1.8-7.8); Neutrophils % 65.8 % (37.0-80.0); Platelet Count 515 K/mm3 (142-424); Red Blood Count 4.49 M/mm3 (4.20-5.40); Reticulocyte % (Auto) 2.6 % (0.9-3.2); White Blood Count 5.6 K/mm3 (4.8-10.8)
[2021-10-06 14:43] LABS: Red Cell Distribution Width 30.7 % (11.5-17.5)
[2021-10-06 15:01] LABS: Iron 52 ug/dL (37-170)
[2021-10-06 15:10] LABS: Total Iron Binding Capacity 376 ug/dL (265-497)
[2021-10-06 15:37] LABS: Ferritin 13.5 ng/ml (6.24-137)
[2021-10-06 16:12] LABS: Vitamin B12 342 pg/mL (239-931)
[2021-10-06 16:21] LABS: Folate > 20.00 ng/mL
[2021-10-08 06:12] LABS: HIV Screen 4th Generation wRfx Non Reactive (Non Reactive); Hepatitis B Surface Antigen Negative (Negative); Hepatitis C Antibody <0.1 s/co ratio (0.0-0.9)
[2021-10-08 07:22] LABS: Rubella Antibodies, IgG 1.53 index (Immune >0.99)
[2021-10-08 11:12] LABS: Rapid Plasma Reagin Ab Titer Non Reactive (NonRea<1:1)
== END ==
PROVIDERS: PCP Physician Assistant; Visit Provider Obstetrics & Gynecology
DX: D64.9 Anemia, unspecified (principal); Z3A.01 Less than 8 weeks gestation of pregnancy; Z34.90 Encounter for supervision of normal pregnancy, unspecified, unspecified trimester
CPT/HCPCS: 36415; 82607; 82728; 82746; 83540; 83550; 85025; 85044; 86592; 86703; 86762; 86850; 87340; 87380; G0432

== ENCOUNTER 2021-11-09 10:29 | Emergency (ER) | payer OTHER, SELFPAY ==
--- NOTE | 2021-11-09 10:47 | HMH.EDUTC ---
[facility] [place] Clinical Impression: Viral syndrome, Viral pharyngitis Disposition: Home, Self-Care Condition on Discharge: Good Instructions: Viral Pharyngitis, DI for Viral Pharyngitis, DI for Viral Syndrome Additional Instructions: Drink plenty of fluids. Take tylenol for pain or fever. Take the medications as directed. Follow up with your regular doctor. GO TO THE ER FOR ANY WORSENING SYMPTOMS Quarantine until you know the results of your covid-19 test. Notify your school or workplace of your results and follow their instructions regarding return to work/school. Referrals: Angle Bright PA [Primary Care Provider] - Forms: Work/School Release Time of Disposition: 11:27 Medical Decision Making - Medical Records Medical records reviewed: No: I reviewed the patient's medical records. - Robert Inquiry Pt receiving controlled substance: No Vital Signs: 11/09/21 10:51 11/09/21 11:32 Temperature 98.8 F 98.8 F Temperature Source Oral Pulse Rate 91 H Pulse Rate [Left] 91 H Respiratory Rate 15 15 Blood Pressure 139/68 Blood Pressure [Right Arm] 139/68 Blood Pressure Mean [Right Arm] 91 02 Sat by Pulse Oximetry 98 - Lab Data Lab results reviewed: Yes: I reviewed the patient's lab results. Lab Results 11/09/21 10:54: Group A Strep Rapid Negative 11/09/21 11:11: Chlamy pneumoniae PCR Not detected, Adenovirus (PCR) Not detected, B. pertussis DNA (PCR) Not detected, Coronavirus OC43 (PCR) Not detected, Coronavirus HKU1 (PCR) Not detected, Coronavirus 229E (PCR) Not detected, SARS-CoV-2 (PCR) Not detected, Coronavirus NL63 (PCR) Not detected, Human Metapneumovir PCR Not detected, Influenza A (H1) PCR Not detected, Influ A (H1N1/09) PCR Not detected, Influenza A (H3) PCR Not detected, Influenza Type A (PCR) Not detected, Influenza Type B (PCR) Not detected, M. pneumoniae (PCR) Not detected, Parainfluenza 1 (PCR) Not detected, Parainfluenza 2 (PCR) Not detected, Parainfluenza 3 (PCR) Not detected, Parainfluenza 4 (PCR) Not detected, RSV (PCR) Not detected, Entero/Rhino (PCR) Not detected Orders (Tests/Meds): ORDERS Category Date Time Status Strep Screen Confirmation Stat Micro 11/09/21 10:54 Re[place] [facility] [place] - General Stated complaint: sore throat,headache,cough Time Seen by Provider: 11/09/21 10:47 - History of Present Illness Provider Complaint: She states that for the past 2 days she has had a scratchy sore throat, chills, body aches and a dry cough. - Related Data Home Medications Medication Instructions Recorded Confirmed Ferrous Sulfate 325 mg PO DAILY 09/14/21 10/21/21 prenat.vits,hira,wan-edyu-dwpaq 1 tab PO DAILY 09/14/21 10/21/21 ergocalciferol (vitamin D2) 1,250 1,250 mcg PO cap 10/21/21 10/21/21 mcg (50,000 unit) capsule Previous Rx's Medication Instructions Recorded progesterone micronized 200 mg 200 mg VG HS 28 Days #28 cap 10/13/21 capsule Allergies Allergy/AdvReac Type Severity Reaction Status Date / Time No Known Allergies Allergy Verified 11/09/21 10:54 [facility] History - Hepatitis A Screen Attestation statement:: This patient has been screened for Hepatitis A risk factors. I have reviewed the patient's past medical history: Yes Medical History: Reports:: Anxiety, Depression Denies:: Cancer, Diabetes Mellitus Type 1, Diabetes Mellitus Type 2, MRSA Other Medical History: Reports: Anemia, Sinus Problems Other Surgeries: Yes: No Previous Surgery Amputation: No Fractures: No - Social History Smoking Status: Former smoker Tobacco Type: cigarettes # Packs/Day (cigarettes): 1 #Yrs smoked (if former smoker): 1 Alcohol Intake: never Alcohol Intake Frequency:: holidays/special occasions only Substance Use Type: denies use Occupational Status: employed Housing: house Household Members: family, children - Psychiatric History Pschychiatric History:: Reports:: Anxiety, Depression Family Hx:: No significant
[2021-11-09 10:51] VITALS: BP 139/68; PULSE 91; RESP 15; TEMP 37.1; O2SAT 98; BMI 34.5
[2021-11-09 11:06] LABS: Strep Scrn Group A (Rapid) Negative (Negative)
[2021-11-09 11:23] LABS: Adenovirus,PCR Not Detected (NotDetected); Bordetella Pertussis Not Detected (NotDetected); Chlamydophila Pneumoniae, PCR Not Detected (NotDetected); Coronavirus 19, PCR Not Detected (NotDetected); Coronavirus 229E Not Detected (NotDetected); Coronavirus NL63 Not Detected (NotDetected); Coronavirus OC43 Not Detected (NotDetected); Coronovirus HKU1,PCR Not Detected (NotDetected); Human Metapneumovirus Not Detected (NotDetected); Influenza A, PCR Not Detected (NotDetected); Influenza AH1, 2009 Not Detected (NotDetected); Influenza AH1, PCR Not Detected (NotDetected); Influenza AH3,PCR Not Detected (NotDetected); Influenza B, PCR Not Detected (NotDetected); Mycoplasma Pneumoniae, PCR Not Detected (NotDetected); Parainfluenza 1, PCR Not Detected (NotDetected); Parainfluenza 2, PCR Not Detected (NotDetected); Parainfluenza 3, PCR Not Detected (NotDetected); Parainfluenza 4, PCR Not Detected (NotDetected); Respiratory Syncytial Virus Not Detected (NotDetected); Rhinovirus/Enterovirus Not Detected (NotDetected)
[2021-11-09 11:32] VITALS: BP 139/68; PULSE 91; RESP 15; TEMP 37.1
== END 2021-11-09 11:38 | disposition home or self-care (01) ==
PROVIDERS: Emergency Provider Nurse Practitioner Family; PCP Physician Assistant
DX: B34.9 Viral infection, unspecified (principal); J02.8 Acute pharyngitis due to other specified organisms
CPT/HCPCS: 87430; 87581; 87632; 87798; 99212; C9803; G0463; U0003; U0005

== ENCOUNTER → 2022-01-26 20:17 | Outpatient (CLI) | payer OTHER, SELFPAY | PROVIDERS: PCP Physician Assistant; Visit Provider Emergency Medicine | DX: Z20.822 Contact with and (suspected) exposure to COVID-19 (principal) | CPT/HCPCS: C9803; U0003; U0005 ==

== ENCOUNTER → 2023-04-04 15:31 | Outpatient (CLI) | payer OTHER, SELFPAY ==
[2023-04-04 15:55] LABS: Basophils % 0.2 % (0.1-2.0); Eosinophils # 0.1 K/mm3 (0.0-0.4); Eosinophils % 1.4 % (0.1-12.0); Hematocrit 28.7 % (37.0-47.0); Hemoglobin 8.8 g/dL (12.2-16.2); Lymphocytes # 0.8 K/mm3 (0.7-4.5); Lymphocytes % 10.9 % (10-50); Mean Corpuscular HGB Conc 30.6 g/dL (31.8-35.4); Mean Corpuscular Hemoglobin 18.7 pg (27.0-31.2); Mean Corpuscular Volume 61.1 fl (81-99); Mean Platelet Volume 7.8 fl (7.4-10.4); Monocytes # 0.1 K/mm3 (0.1-1.0); Monocytes % 1.9 % (1.7-9.3); Neutrophils # 5.9 K/mm3 (1.8-7.8); Neutrophils % 85.5 % (37.0-80.0); Platelet Count 526 K/mm3 (142-424); Red Cell Distribution Width 22.6 % (11.5-17.5); White Blood Count 6.9 K/mm3 (4.8-10.8)
[2023-04-04 15:56] LABS: MANUAL DIFFERENTIAL MANUAL DIFFERENTIAL (MANUAL DIFF)
[2023-04-04 16:19] LABS: Chloride 104 mmol/L (98-107); Sodium 137 mmol/L (136-145)
[2023-04-04 16:21] LABS: Alanine Aminotransferase 15 U/L (12-78); Amylase 51 U/L (30-110); Aspartate Amino Transferase 21 U/L (14-36); Bilirubin,Total 0.6 mg/dl (0.2-1.3); Blood Urea Nitrogen 11 mg/dl (7-17); Estimated Glomerular Filt Rate 76 ml/min (>60); GFR (African American) 92 ML/MIN (>60)
[2023-04-04 16:22] LABS: Albumin Level 4.6 g/dl (3.5-5.0); Albumin/Globulin Ratio 1.4 (1.1-1.8); Alkaline Phosphatase 68 U/L (38-126); Calcium 8.9 mg/dl (8.4-10.2); Carbon Dioxide 26 mmol/L (22.0-30.0); Globulin 3.2 g/dL (1.3-3.2); Glucose 89 mg/dl (74-100); Iron 26 ug/dL (37-170); Lipase 25 U/L (23-300); Total Protein,Serum 7.8 g/dl (6.3-8.2)
[2023-04-04 16:32] LABS: Total Iron Binding Capacity 502 ug/dL (265-497)
[2023-04-04 16:39] LABS: HCG,Quantitative 8 mIU/ml (0-5.42)
[2023-04-04 16:53] LABS: Thyroid Stimulating Hormone 1.02 uIU/mL (0.465-4.68)
[2023-04-04 16:57] LABS: Ferritin 6.76 ng/ml (6.24-137)
[2023-04-04 17:12] LABS: Hypochromasia 3+; Lymphocytes % 16 % (10-50); Microcytosis 3+; Monocytes % 1 % (2-9); Neutrophils % 83 % (42-76); Ovalocytes 1+; Platelet Estimate Slight Increase; Total Cells Counted 100
[2023-04-04 17:56] LABS: Erythrocyte Sedimentation Rate 19 mm/hr (0-20)
[2023-04-04 18:15] LABS: Vitamin B12 293 pg/mL (239-931)
[2023-04-04 18:48] LABS: Folate 3.82 ng/mL
== END ==
PROVIDERS: PCP Physician Assistant; Visit Provider Family Medicine
DX: R19.7 Diarrhea, unspecified (principal); R53.83 Other fatigue; E61.1 Iron deficiency; N39.0 Urinary tract infection, site not specified; B96.89 Other specified bacterial agents as the cause of diseases classified elsewhere; R11.2 Nausea with vomiting, unspecified; Z32.01 Encounter for pregnancy test, result positive; E66.9 Obesity, unspecified; Z68.30 Body mass index [BMI] 30.0-30.9, adult
CPT/HCPCS: 80053; 82150; 82607; 82728; 82746; 83540; 83550; 83690; 84443; 84702; 85007; 85025; 85651; 87086

== ENCOUNTER → 2023-04-11 09:14 | Outpatient (CLI) | payer OTHER, SELFPAY ==
[2023-04-11 18:12] LABS: HCG,Quantitative 8 mIU/ml (0-5.42)
[2023-04-13 11:28] LABS: Progesterone 0.2 ng/mL (.)
== END ==
PROVIDERS: PCP Obstetrics & Gynecology; Visit Provider Obstetrics & Gynecology
DX: Z32.01 Encounter for pregnancy test, result positive (principal)
CPT/HCPCS: 36415; 84144; 84702

== ENCOUNTER → 2023-04-11 15:18 | Outpatient (CLI) | payer OTHER, SELFPAY ==
--- NOTE | 2023-04-11 15:23 | US_ITS ---
FINAL REPORT CLINICAL HISTORY: abd pain COMPARISON: None FINDINGS: Sonographic images of the right upper quadrant were obtained. The pancreas is partially obscured.The liver has an unremarkable appearance.The gallbladder appears normal without evidence of gallstones.There is no evidence of biliary ductal dilatation.The common duct measures 2 mm. Limited images of the right kidney are unremarkable. IMPRESSION: Unremarkable right upper quadrant ultrasound. Reviewed, Interpreted and Dictated by Scott Alexander III, MD Transcribed by Marifer Andrew Authenticated and [facility]
== END ==
PROVIDERS: PCP Physician Assistant; Visit Provider Family Medicine
DX: R10.9 Unspecified abdominal pain (principal); R11.2 Nausea with vomiting, unspecified
CPT/HCPCS: 76705

== ENCOUNTER → 2023-04-13 12:41 | Outpatient (CLI) | payer OTHER, SELFPAY ==
[2023-04-13 17:38] LABS: HCG,Quantitative < 2 mIU/ml (0-5.42)
== END ==
PROVIDERS: PCP Physician Assistant; Visit Provider Obstetrics & Gynecology
DX: Z32.00 Encounter for pregnancy test, result unknown (principal)
CPT/HCPCS: 36415; 84702

== ENCOUNTER 2023-05-04 13:01 | Outpatient (CLI) | payer OTHER, SELFPAY ==
[2023-05-04 13:08] VITALS: BMI 31.9
[2023-05-04 13:21] VITALS: BP 140/63; PULSE 78; RESP 18; O2SAT 100
[2023-05-04] MEDS: SODIUM CHLORIDE 0.9% 50ML BAG 50 ML IV (13:21)
[2023-05-04 13:28] LABS: Basophils % 0.3 % (0.1-2.0); Eosinophils # 0.1 K/mm3 (0.0-0.4); Eosinophils % 1.3 % (0.1-12.0); Hematocrit 25.3 % (37.0-47.0); Hemoglobin 7.4 g/dL (12.2-16.2); Lymphocytes # 1.7 K/mm3 (0.7-4.5); Lymphocytes % 34.9 % (10-50); Mean Corpuscular HGB Conc 29.3 g/dL (31.8-35.4); Mean Corpuscular Hemoglobin 17.7 pg (27.0-31.2); Mean Corpuscular Volume 60.4 fl (81-99); Mean Platelet Volume 8.6 fl (7.4-10.4); Monocytes # 0.2 K/mm3 (0.1-1.0); Monocytes % 4.7 % (1.7-9.3); Neutrophils # 2.9 K/mm3 (1.8-7.8); Neutrophils % 58.8 % (37.0-80.0); Platelet Count 501 K/mm3 (142-424); Red Blood Count 4.18 M/mm3 (4.20-5.40); Red Cell Distribution Width 21.6 % (11.5-17.5)
[2023-05-04 14:05] VITALS: BP 128/74; PULSE 75; RESP 18; O2SAT 100
== END 2023-05-04 14:05 | disposition home or self-care (01) ==
LOC: INF 13:02
PROVIDERS: PCP Physician Assistant; Visit Provider Obstetrics & Gynecology
DX: D50.9 Iron deficiency anemia, unspecified (principal)
CPT/HCPCS: 85025; 96365; J1756

== ENCOUNTER 2023-12-09 17:23 | Observation (INO) | payer BC, SELFPAY ==
[2023-12-09] VITALS (12 sets, daily range): BP systolic 114–143; BP diastolic 57–85; PULSE 77–103; RESP 16–18; TEMP 36.2–37.2; O2SAT 98–100; BMI 35.2; BMI 35.1
--- NOTE | 2023-12-09 17:47 | ED_ITS ---
Discharge Plan Disposition Patient Disposition: Still a Patient Prescriptions Prescriptions: No Action bupropion HCl [Wellbutrin XL] 150 mg tablet extended release 24 hr 150 mg PO DAILY Qty: 30 2RF dicyclomine 20 mg tablet 20 mg PO BID Qty: 60 2RF ondansetron 4 mg tablet,disintegrating 4 mg PO Q8H Qty: 90 0RF phentermine [Adipex-P] 37.5 mg tablet 37.5 mg PO DAILY Qty: 30 0RF Rx Instructions: must administer 30 minutes before or 1-2 hours after breakfast Referrals Follow up/Referrals: Dayne Ramirez MD [Primary Care Provider] - See instructions Instructions Patient Instructions: DI for Syncope in Adults (Fainting), DI for Syncope in Children (Fainting) Print Language Print Language: Mozambican Discharge ED Provider: Renato Ervin [facility] General Chief complaint: Syncope Stated complaint: nausea, weak, passed out today Mode of Arrival: Ambulatory Source of Information: Patient Limitations: No Limitations Time Seen by Provider: 12/09/23 17:47 Description of Symptoms (Recalled from Triage Doc. by RN): PATIENT REPORTS PASSING OUT TODAY, NAUSEA, AND DIZZINESS. SHE STATES SHE HAS A HISTORY OF ANEMIA AND JUST FOUND OUT SHE IS HEENT Symptoms (Recalled from RN notes): Yes Resp Symptoms (Recalled from RN notes): No Skin Symptoms (Recalled from RN notes): No MS Symptoms (Recalled from RN notes): No Functional Status (Recalled from RN notes): WNL History of Present Illness Provider Complaint: Patient states that earlier today she was at home and started feeling light headed like she was going to pass out and she was trying to get to the kitchen and she started seeing spots so she took herself to the ground and she passed out, States that when she woke up she drink some water hoping that would help her but it hasnt States that she has continued to have nausea, feeling light headed like she is going to pass out and weak States she does have hx of anemia and has to have 2-3 transfusions in the past not had her blood checked in awhile States also she found out a few days ago that she is again Related Data Previous Rx's ?Medication ?Instructions ?Recorded bupropion HCl 150 mg 24 hr tablet, 150 mg PO DAILY #30 tabs 01/26/23 extended release (Wellbutrin XL) phentermine 37.5 mg tablet 37.5 mg PO DAILY #30 tabs 03/02/23 (Adipex-P) dicyclomine 20 mg tablet 20 mg PO BID #60 tabs 04/04/23 ondansetron 4 mg disintegrating 4 mg PO Q8H #90 tabs 04/04/23 tablet Allergies Allergy/AdvReac Type Severity Reaction Status Date / Time No Known Allergies Allergy Verified 12/09/23 18:10 Worker's Comp Is this a Worker's Comp case?: No [facility] Disclaimer: The information contained in this section may have been updated after the patient was seen, as this information can be updated by other users. Medical History Anxiety with depression Obesity, Class II, BMI 35-39.9 Vitamin D deficiency (~09/03/17) Social History Smoking Status: Never smoker alcohol intake: never substance use type: denies use current occupational status: employed Travel in the last 8 weeks: None household members: family and children housing: house number of children: 1 caffeine: Yes ROS Obtained: Yes All systems reviewed & no additional complaints except as documented and Yes Systems reviewed as appropriate & no additional complaints except as documented Constitutional Constitutional: Reports system reviewed and no additional complaints, except as documented, Reports as per HPI and Reports lethargy ENT Ears, Nose, Mouth, and Throat: Reports system reviewed and no additional complaints, except as documented and Reports as per HPI Cardiovascular Cardiovascular: Reports system reviewed and no additional complaints, except as documented, Reports as per HPI, Reports lightheadedness (when she stands up ) and Reports syncope Respiratory Respiratory: Reports system reviewed and no additional complaints, except as documented and Reports as per HPI Gastrointestinal Gastrointestingal: Reports system reviewed and no additional complaints, except as documented, as per HPI and nausea Genitourinary Female Genitourinary: Reports system reviewed and no additional complaints, except as documented, Reports as per HPI and Reports other Comments: report not sure how far along Neurologic Neurologic: Reports system reviewed and no additional complaints, except as documented, Reports as per HPI and Reports syncope Physical Exam General General appearance: alert and in no apparent distress Respiratory Respiratory exam: Present normal lung sounds bilaterally; Absent respiratory distress or wheezes Cardiovascular Cardiovascular exam: Present regular rate, normal rhythm and tachycardia Neurological Exam Neurological exam: Present alert and oriented X3 Medical Decision Making Robert Inquiry Pt receiving controlled substance: No Robert was queried for this patient: No Vital Signs: 12/09/23 17:30 Temperature 98.1 F Temperature Source Oral Pulse Rate [Left Brachial] 103 H Respiratory Rate 18 Blood Pressure [Left Arm] 123/73 Blood Pressure Mean [Left Arm] 89 Blood Pressure Source [Left Arm] Automatic Cuff Blood Pressure Position [Left Arm] Sitting 02 Sat by Pulse Oximetry 100 Oxygen Delivery Method Room Air Lab Data 12/09/23 18:03 12/09/23 18:03 Medical Decision Narrative: Patient reports syncopal episode prior to arrival and feeling lightheaded when she stands and nausea reports found out she was a few days ago not sure how far, has hx of severe anemia and has had several blood transfusions in the past Discussed with patient and due to syncopal episode and current complaints will transfer to the ED for further work up and evaluation and she agreed Called ED and patient was moved to room 11
--- NOTE | 2023-12-09 17:52 | PC.NURSE ---
PATIENT SENT TO ER PER Yessy MARIA APRN FOR FURTHER EVALUATION. REPORT GIVEN TO DR. FREEMAN BY Yessy MARIA APRN. PATIENT TRANSPORTED TO ER VIA WHEELCHAIR WITH [facility] STAFF ASSIST
--- NOTE | 2023-12-09 17:52 | PC.NURSE ---
PT ARRIVED TO ED FROM [facility] VIA WHEELCHAIR
--- NOTE | 2023-12-09 18:00 | ECG_ITS ---
APPROVED REPORT Exam: Resting ECG HR:87 bpm ECG Measurements Heart Rate 87 AXES WA 122 P 23 QRSd 88 QRS 60 QT 351 T 38 QTc 396 Conclusion SINUS RHYTHM NORMAL ECG Electronically signed by : YUSRA FREEMAN, 12/10/2023 00:25:32
--- NOTE | 2023-12-09 18:01 | HMH.EDGENADL ---
Discharge Plan Disposition Patient Disposition: Still a Patient Clinical Impressions Clinical Impression: Syncope, Anemia, Currently Discharge ED Provider: Renato Ervin General Adult HPI General Chief complaint: Syncope Stated complaint: nausea, weak, passed out today Time Seen by Provider: 12/09/23 17:47 Mode of Arrival: Ambulatory Source of Information: Patient Limitations: No Limitations Description of Symptoms (Recalled from ER Triage Doc. by RN): PATIENT REPORTS PASSING OUT TODAY, NAUSEA, AND DIZZINESS. SHE STATES SHE HAS A HISTORY OF ANEMIA AND JUST FOUND OUT SHE IS History of Present Illness HPI narrative: Patient is a 28-year-old female G5, P2 EGA 4 weeks who presents emergency department for evaluation of syncope and nausea. History is obtained by patient at bedside. Patient had generalized dizziness and rapidly stood from a seated position causing her to have tunnel vision and her hearing become distant resulting in passing out completely waking up on the floor unwitnessed. Denies chest pain, abdominal pain, vaginal bleeding, vomiting. She does have a history of anemia that has required 4 transfusions throughout her life of undetermined etiology. No hematemesis, no blood in stool reported. She was supposed to receive iron transfusions earlier this year which she did not present for administration. She took a home test which was positive and caused her to present here for continued evaluation. No anticoagulants. Related Data Allergies Allergy/AdvReac Type Severity Reaction Status Date / Time No Known Allergies Allergy Verified 12/09/23 18:10 [facility] Disclaimer: The information contained in this section may have been updated after the patient was seen, as this information can be updated by other users. Medical History Obesity, Class II, BMI 35-39.9 Anxiety with depression Vitamin D deficiency (~09/03/17) Social History Smoking Status: Never smoker alcohol intake: never substance use type: denies use current occupational status: employed Travel in the last 8 weeks: None household members: family and children housing: house number of children: 1 caffeine: Yes ROS Obtained: Yes Systems reviewed as appropriate & no additional complaints except as documented Physical Exam General General appearance: alert and in no apparent distress Head Head exam: atraumatic and normocephalic Eye Eye exam: Present PERRL and EOMI ENT ENT exam: Present mucous membranes moist and TM's normal bilaterally Neck Neck exam: Present normal inspection Chest Chest inspection: Present normal inspection and symmetric chest wall rise Respiratory Respiratory exam: Present normal lung sounds bilaterally; Absent respiratory distress Cardiovascular Cardiovascular exam: Present regular rate and normal rhythm Abdominal Exam Abdominal exam: Present soft; Absent tenderness Extremities Exam Extremities exam: Present normal inspection Neurological Exam Neurological exam: Present alert, oriented X3, CN II-XII intact and normal gait; Absent motor sensory deficit Psychiatric Psychiatric exam: Present normal affect Skin Skin exam: Present warm and dry Medical Decision Making Robert Inquiry Pt receiving controlled substance: No Vital Signs: 12/09/23 17:30 12/09/23 18:06 12/09/23 20:22 Temperature 98.1 F 98.5 F 98.5 F Temperature Source Oral Oral Oral Pulse Rate 82 Pulse Rate [Left Brachial] 103 H 102 H Respiratory Rate 18 16 16 Blood Pressure 122/74 Blood Pressure [Left Arm] 123/73 137/82 Blood Pressure Mean [Left Arm] 89 100 Blood Pressure Source Automatic Cuff Blood Pressure Source [Left Arm] Automatic Cuff Blood Pressure Position Sitting Blood Pressure Position [Left Arm] Sitting 02 Sat by Pulse Oximetry 100 98 Oxygen Delivery Method Room Air Room Air Lab Data Lab Results 12/09/23 18:03: WBC 7.8, RBC 4.09 L, Hgb 6.4 L*, Hct 22.9 L, MCV 56.1 L, MCH 15.6 L, MCHC 27.7 L, RDW 21.7 H, Plt Count 687 H, MPV 7.3 L, Neut % (Auto) 78.7, Lymph % (Auto) 17.1, Ralls % (Auto) 3.7, Eos % (Auto) 0.2, Baso % (Auto) 0.2, Neut # (Auto) 6.1, Lymph # (Auto) 1.3, Ralls # (Auto) 0.3, Eos # (Auto) 0.0, Baso # (Auto) 0.0, Sodium 137, Potassium 3.5, Chloride 107, Carbon Dioxide 20 L, Anion Gap 13.5, BUN 11, Creatinine 0.80, Estimated Creat Clear 182, Estimated GFR 87, Est GFR ( Amer) 105, Glucose 112 H, Calcium 9.1, Magnesium 1.8, Iron 31 L, TIBC 462, Iron Saturation 6.40122 L, Total Bilirubin 0.4, AST 36, ALT 15, Alkaline Phosphatase 77, Total Protein 7.9, Albumin 4.2, Globulin 3.7 H, Albumin/Globulin Ratio 1.1, TSH 1.46, Thyroxine (T4) 10.7, HCG, Quant 48 H 12/09/23 18:11: Urine Color Yellow, Urine Appearance Clear, Urine pH 6.0, Ur Specific Alvarado >= 1.030, Urine Protein Negative, Urine Glucose (UA) Negative, Urine Ketones Negative, Urine Blood Negative, Urine Nitrate Negative, Urine Bilirubin Negative, Urine Urobilinogen 1.0, Ur Leukocyte Esterase Trace, Urine RBC None, Urine WBC 5-10, Ur Squamous Epith Cells 5-10, Urine Bacteria 4+, Urine Mucus 1+, Urine HCG, Qual Positive 12/09/23 18:55: Blood Type O Positive, Antibody Screen Negative, Crossmatch (AHG) See Detail 12/09/23 18:03 12/09/23 18:03 Orders (Tests/Meds): ED MEDICATIONS Generic Name Dose Route Start Last Admin Trade Name Freq PRN Reason Stop Dose Admin Acetaminophen 1,000 mg 12/09/23 22:18 12/09/23 22:29 Acetaminophen 500mg Tab PO 01/08/24 22:17 1,000 mg Q6HP PRN Administration pain Diphenhydramine HCl 50 mg 12/09/23 22:17 12/09/23 22:28 Diphenhydramine 50mg Capsule PO 01/09/24 20:59 50 mg HS PRN Administration sleep Sodium Chloride 250 mls @ 25 mls/hr 12/09/23 18:45 Sod Chlor 0.9% 250ml Bag IV 12/10/23 18:44 .Q10H MARIBELL Iron Sucrose 200 mg/ Sodium 110 mls @ 220 mls/hr 12/09/23 21:17 Chloride IV 12/09/23 21:46 ONCE ONE Ondansetron HCl 4 mg 12/09/23 21:18 12/09/23 23:16 Ondansetron 4mg/2ml Vial IV 01/08/24 21:17 4 mg Q8HP PRN Administration Nausea Pantoprazole Sodium 40 mg 12/10/23 09:00 Pantoprazole 40mg Tablet PO 01/09/24 08:59 DAILY MARIBELL Sodium Chloride 10 ml 12/09/23 21:18 Sodium Chloride 0.9% 10ml Flush Syringe IV 01/08/24 21:17 NEEDED PRN Maintain IV Site Discontinued Medications Generic Name Dose Route Start Last Admin Trade Name Tone PRN Reason Stop Dose Admin Acetaminophen 650 mg 12/09/23 21:18 Acetaminophen 325mg Tab PO 01/08/24 21:17 Q4HP PRN Fever or Mild Pain (1-3) Lactated Ringer's 1,000 mls @ 999 mls/hr 12/09/23 18:00 12/09/23 18:09 Lactated Ringer's 1000 Ml Bag IV 12/09/23 19:00 999 mls/hr .Q1H1M ONE Administration ORDERS Category Date Time Status Transfuse RBC's [Red Blood Cells] Stat BBK 12/09/23 18:55 Completed Type and Screen Stat BBK 12/09/23 18:55 Completed CBC w/Auto Diff [Complete Blood Count Auto Diff] Stat Lab 12/09/23 18:03 Completed CMP [Comprehensive Metabolic Panel] Stat Lab 12/09/23 18:03 Completed HCG,Quantitative Stat Lab 12/09/23 18:03 Completed Iron and TIBC Stat Lab 12/09/23 18:03 Completed MG [Magnesium] Stat Lab 12/09/23 18:03 Completed T4 (Thyroxine) Stat Lab 12/09/23 18:03 Completed TSH [Thyroid Stimulating Hormone] Stat Lab 12/09/23 18:03 Completed UA [Urinalysis and Microscopic] Stat Lab 12/09/23 18:11 Completed Urine , HCG Qual. Stat Lab 12/09/23 18:11 Completed Urine Culture Stat Micro 12/09/23 18:11 Received US OB transvaginal Stat Ultrasound 12/09/23 19:13 Completed EKG Request [ECG Request] Stat Y 12/09/23 18:00 Ordered ECG Data Tracing #1: Independently interpreted by me rate is 87, rhythm is regular, axis is normal, no ST elevation in anatomical contiguous leads, QTc 396. Medical Decision Narrative: In summary patient is a 28-year-old female past medical history described above who presents emergency department for evaluation of syncope in the setting of . Patient is hemodynamically stable nontoxic-appearing upon arrival, afebrile. Patient does not have any chest pain or shortness of breath. Given history I suspect that patient's presentation is related to her physiologic changes in and she milton rapidly from a seated position resulting in vasovagal syncope. Patient has minimal tachycardia which would be expected during . Isolated syncope without chest pain is an exceptionally rare cause of pulmonary embolism therefore workup with respect to that will be deferred at this time. Differential also includes urinary tract infection, anemia, electrolyte abnormality, among others. Workup will be conducted with hematologic labs, urinalysis, transvaginal ultrasound to establish location. Initial inventions include crystalloid bolus. Initial hematologic labs reviewed by me, anemia hemoglobin 6.4 for which patient will be typed and crossed and transfused 1 unit in the ED. Thrombocytosis 687, no significant leukocytosis. No SWATHI or critical electrolyte abnormality. Iron studies will be ordered given that she has a microcytic anemia. Thyroid studies normal, hCG quant 48 for which location will attempt to be established with transvaginal ultrasound. Case discussed with hospital medicine regarding management patient will be admitted for observation and serial hemoglobins. Transvaginal ultrasound after admission shows no definitive intrauterine , given this hCG and timing it may be that that is just too early to see anything however nonvisualized ectopic remains on the differential. Patient does not have any peritonitis and is appropriate for admission. She will require serial hCGs within 48 hours and follow-up with obstetrics on an outpatient basis. Critical Care Critical Care Time Critical Care Time: No
[2023-12-09] MEDS: LACTATED RINGERS 1000ML 1,000 ML 999 ML IV (18:09)
[2023-12-09 18:30] LABS: Microscopic, Urine URINE MICROSCOPIC (MICROSCOPIC)
[2023-12-09 18:30] LABS: Basophils % 0.2 % (0.1-2.0); Eosinophils % 0.2 % (0.1-12.0); Hematocrit 22.9 % (37.0-47.0); Lymphocytes # 1.3 K/mm3 (0.7-4.5); Lymphocytes % 17.1 % (10-50); Mean Corpuscular HGB Conc 27.7 g/dL (31.8-35.4); Mean Corpuscular Hemoglobin 15.6 pg (27.0-31.2); Mean Corpuscular Volume 56.1 fl (81-99); Mean Platelet Volume 7.3 fl (7.4-10.4); Monocytes # 0.3 K/mm3 (0.1-1.0); Monocytes % 3.7 % (1.7-9.3); Neutrophils # 6.1 K/mm3 (1.8-7.8); Neutrophils % 78.7 % (37.0-80.0); Platelet Count 687 K/mm3 (142-424); Red Blood Count 4.09 M/mm3 (4.20-5.40); Red Cell Distribution Width 21.7 % (11.5-17.5); White Blood Count 7.8 K/mm3 (4.8-10.8)
[2023-12-09 18:32] LABS: Hemoglobin 6.4 g/dL (12.2-16.2)
--- NOTE | 2023-12-09 18:32 | PC.NURSE ---
aware of hemoglobin of 6.4
[2023-12-09 18:38] LABS: Alanine Aminotransferase 15 U/L (12-78); Albumin Level 4.2 g/dl (3.5-5.0); Albumin/Globulin Ratio 1.1 (1.1-1.8); Alkaline Phosphatase 77 U/L (38-126); Anion Gap 13.5 mEq/L (5-15); Aspartate Amino Transferase 36 U/L (14-36); Bilirubin,Total 0.4 mg/dl (0.2-1.3); Blood Urea Nitrogen 11 mg/dl (7-17); Calcium 9.1 mg/dl (8.4-10.2); Carbon Dioxide 20 mmol/L (22.0-30.0); Chloride 107 mmol/L (98-107); Creatinine Clearance Estimated 182 mL/min (50-200); Estimated Glomerular Filt Rate 87 ml/min (>60); GFR (African American) 105 ML/MIN (>60); Globulin 3.7 g/dL (1.3-3.2); Glucose 112 mg/dl (74-100); Magnesium 1.8 mg/dl (1.6-2.3); Potassium 3.5 mmoL/L (3.5-5.1); Sodium 137 mmol/L (136-145); Total Protein,Serum 7.9 g/dl (6.3-8.2)
[2023-12-09 18:55] LABS: HCG,Quantitative 48 mIU/ml (0-5.42); T4 (Thyroxine) 10.7 ug/dl (5.53-11.0)
[2023-12-09 18:58] LABS: Appearance,Urine CLEAR (Clear); Bilirubin,Urine Negative (Negative); Blood, Urine Negative (Negative); Color,Urine YELLOW (Yellow); Glucose,Urine (UA) Negative (Negative); Ketones,Urine Negative (Negative); Leukocyte Esterase,Urine TRACE (Negative); Nitrate,Urine Negative (Negative); Protein,Urine Negative (Negative); Specific Gravity, Urine >= 1.030 (1.005-1.030)
[2023-12-09 19:02] LABS: Urine Pregnancy, HCG Qual. Positive (Negative)
[2023-12-09 19:09] LABS: Thyroid Stimulating Hormone 1.46 uIU/mL (0.465-4.68)
--- NOTE | 2023-12-09 19:13 | US_ITS ---
PROCEDURE INFORMATION: Exam: US , Transvaginal Exam date and time: 12/09/2023 7:47 PM Age: 28 years old Clinical indication: Lmp or gestational age (in weeks): 11/13/2023; Other: PT fainted; ; Additional info: Preg location TECHNIQUE: Imaging protocol: Real-time transvaginal obstetrical ultrasound of the maternal pelvis with image documentation. Transvaginal imaging was used for better evaluation of the fetus, adnexa, and/or cervix. COMPARISON: US OB TRANSVAGINAL 09/14/2021 10:38 AM FINDINGS: Gestation: No visualized intrauterine gestational sac, yolk sac or pole. MATERNAL: Uterus: Thickened and heterogeneous fundal endometrium measuring 2.7 cm. Right ovary/adnexa: 1.7 cm right corpus luteal cyst. Normal vascular flow. No adnexal mass. Left ovary/adnexa: Unremarkable left ovary. Normal vascular flow. No adnexal mass. Intraperitoneal space: Small amount of free fluid within the pelvis. IMPRESSION: 1. No definitive intrauterine identified. Differential diagnosis includes early intrauterine , failed first trimester , and non-visualized ectopic . No abnormal adnexal mass is identified. If the patient is stable, recommend close clinical follow-up with serial imaging and B-hCG assessment. 2. Small amount of free fluid within the pelvis.
[2023-12-09 19:14] LABS: Iron 31 ug/dL (37-170)
[2023-12-09 19:23] LABS: Total Iron Binding Capacity 462 ug/dL (265-497)
[2023-12-09 19:46] LABS: Bacteria,Urine 4+ /lpf; Mucus,Urine 1+ /lpf
--- NOTE | 2023-12-09 20:02 | PC.NURSE ---
was notified that blood was ready for pickup. informed lab that patient was not in the department and likely would not return fro 30-40 mins, so it would be clear why we missed pickup time.
--- NOTE | 2023-12-09 20:16 | PC.NURSE ---
House notified for admission
--- NOTE | 2023-12-09 20:22 | PC.NURSE ---
Report given to BRET Marrero
--- NOTE | 2023-12-09 21:32 | PC.NURSE ---
Patient arrived to floor via wheelchair from ED at 20:29.
--- NOTE | 2023-12-09 22:07 | P.HP_ITS ---
History of Present Illness *Admission Date: 12/09/23 *Reason for visit:: Syncope at home, , severe anemia *History of present illness: This 28-year-old female was at home when she had a syncopal spell., She notes a history of receiving blood transfusions in the past, this was also noted with her last child who is now 19 months old. She notes that her grandmother and her twin sister has the same problem. She notes that she does have significantly heavy bleeding for at least 3 days on a regular basis. That she has tried many different forms of control and not able to tolerate them. After conferring with the ER physician noting that the patient does need to have blood replaced she will be admitted to the floor. Patient is stable at this point in time. Ultrasound of showed no emergent need. [facility] Disclaimer: The information contained in this section may have been updated after the patient was seen, as this information can be updated by other users. Medical History Obesity, Class II, BMI 35-39.9 Anxiety with depression Vitamin D deficiency (~09/03/17) Social History Smoking Status: Never smoker alcohol intake: never substance use type: denies use current occupational status: employed Travel in the last 8 weeks: None household members: family and children housing: house number of children: 1 caffeine: Yes Review of Systems Review of Systems Review of systems:: pertinent systems reviewed and negative unless documented below Constitutional Constitutional: Reports as per HPI Comments: Patient reported no significant change in her daily activity, that related to her anemia she noticed that there is fatigue onset quite quickly when doing things Eyes Eyes: Reports system reviewed and no additional complaints, except as documented ENT Ears, Nose, Mouth, and Throat: Reports system reviewed and no additional complaints, except as documented *Cardiovascular Cardiovascular: Reports system reviewed and no additional complaints, except as documented, Reports as per HPI and Reports syncope *Respiratory Respiratory: Reports system reviewed and no additional complaints, except as documented *Gastrointestinal Gastrointestinal: Reports system reviewed and no additional complaints, except as documented *Genitourinary Genitourinary: Reports system reviewed and no additional complaints, except as documented *Musculoskeletal Musculoskeletal: Reports system reviewed and no additional complaints, except as documented Integumentary/Breasts Skin/Breast: Reports system reviewed and no additional complaints, except as documented *Neurologic Neurologic: Reports system reviewed and no additional complaints, except as documented, Reports as per HPI and Reports syncope Psychiatric Psychiatric: Reports system reviewed and no additional complaints, except as doc umented Endocrine Endocrine: Reports system reviewed and no additional complaints, except as documented Hematologic/Lymphatic Hematologic/Lymphatic: Reports system reviewed and no additional complaints, except as documented Allergic/Immunologic Allergic/Immunologic: Reports system reviewed and no additional complaints, except as documented Meds Home Medications and Allergies Home Medications ?Medication ?Instructions ?Recorded ?Confirmed ?Type No Known Home Medications 12/10/23 12/10/23 History New Prescriptions to Start Prescriptions: Allergies Allergy/AdvReac Type Severity Reaction Status Date / Time iron [From Venofer] Allergy Mild Flushing Verified 12/10/23 09:31 Exam Data for Last 24 hours Vital signs and Labs for Last 24 Hours: Temp Pulse Resp BP Pulse Ox O2 Del Method 98.5 F 82 16 122/74 98 Room Air 12/09/23 20:22 12/09/23 20:22 12/09/23 20:22 12/09/23 20:22 12/09/23 18:06 12/09/23 20:22 Laboratory Results - last 24 hr 12/09/23 18:03: WBC 7.8, RBC 4.09 L, Hgb 6.4 L*, Hct 22.9 L, MCV 56.1 L, MCH 15.6 L, MCHC 27.7 L, RDW 21.7 H, Plt Count 687 H, MPV 7.3 L, Neut % (Auto) 78.7, Lymph % (Auto) 17.1, [place] % (Auto) 3.7, Eos % (Auto) 0.2, Baso % (Auto) 0.2, Neut # (Auto) 6.1, Lymph # (Auto) 1.3, [place] # (Auto) 0.3, Eos # (Auto) 0.0, Baso # (Auto) 0.0, Sodium 137, Potassium 3.5, Chloride 107, Carbon Dioxide 20 L, Anion Gap 13.5, BUN 11, Creatinine 0.80, Estimated Creat Clear 182, Estimated GFR 87, Est GFR ( Amer) 105, Glucose 112 H, Calcium 9.1, Magnesium 1.8, Iron 31 L, TIBC 462, Iron Saturation 6.23768 L, Total Bilirubin 0.4, AST 36, ALT 15, Alkaline Phosphatase 77, Total Protein 7.9, Albumin 4.2, Globulin 3.7 H, Albumin/Globulin Ratio 1.1, TSH 1.46, Thyroxine (T4) 10.7, HCG, Quant 48 H 12/09/23 18:11: Urine Color Yellow, Urine Appearance Clear, Urine pH 6.0, Ur Specific [place] >= 1.030, Urine Protein Negative, Urine Glucose (UA) Negative, Urine Ketones Negative, Urine Blood Negative, Urine Nitrate Negative, Urine Bilirubin Negative, Urine Urobilinogen 1.0, Ur Leukocyte Esterase Trace, Urine RBC None, Urine WBC 5-10, Ur Squamous Epith Cells 5-10, Urine Bacteria 4+, Urine Mucus 1+, Urine HCG, Qual Positive 12/09/23 18:55: Blood Type O Positive, Antibody Screen Negative, Crossmatch (AHG) See Detail I & O for Last 24 hours: Intake & Output 12/06/23 12/07/23 12/08/23 12/09/23 23:59 23:59 23:59 23:59 Weight 107.955 kg Radiology Reports for the Last 24 Hours: Ultrasound completed showing normal Narrative: I have reviewed reviewed labs, Constitutional Constitutional: no acute distress and obese Comments: Exam done with patient on stretcher in the emergency room. Find her to be quite friendly and easy to talk to, no signs of distress at this time. She is a good historian, and tells me about related family history. Noting that she has 2 other children that are doing fine *Routine HEENT Exam Head: Present normocephalic and atraumatic Eye: Present EOMI, PERRL and normal accommodation ENT: Present mucous membranes moist *Routine Neck Exam Neck: Present supple and full ROM *Routine Respiratory Exam Respiratory: Present normal respiratory effort *Routine Cardiovascular Exam Cardiovascular: Present RRR, Normal S1 and Normal S2 *Routine Abdominal Exam Abdominal: Present soft and normoactive bowel sounds *Routine Rectal Exam Rectal:: deferred *Routine Genitalia Exam Genitalia:: deferred *Routine Extremities Exam Extremities: Present full ROM, pulses intact and normal capillary refill Routine Back/Spine/Pelvis Exam Back/Spine: Present full ROM *Routine Skin Exam Skin: Present intact, dry and warm *Routine Neurological Exam Neurological: Present alert, oriented X3 and CN II-XII intact Routine Psychiatric Exam Psychiatric: Present normal affect, normal thought process, cooperative, good insight and good judgment Comments: Very friendly pleasant patient to talk with H&P: Result Impressions 1. Recurrent anemia, no clear source found at this time, workup for thalassemia and past records was negative, possible heavy periods, with a family history in her grandmother and twin sister same condition. 2. first trimester normal Imaging and Cardiology Vaginal ultrasound: Status: final report (No acute findings) Assessment and Plan *Assessment and plan (1) Anemia: Status: Acute Qualifiers: Anemia type: iron deficiency Iron deficiency anemia type: chronic blood loss Qualified Code(s): D50.0 - Iron deficiency anemia secondary to blood loss (chronic) Category: Medical Code(s): D64.9 - Anemia, unspecified (2) Currently : Category: Medical Code(s): Z34.90 - Encounter for supervision of normal , unspecified, unspecified trimester (3) Syncope: Status: Acute Category: Medical Code(s): R55 - Syncope and collapse (4) Low serum iron: Status: Acute Category: Medical Code(s): E61.1 - Iron deficiency Plan 1. Admission for blood transfusion and iron replacement, after talking with the ER physician do agree that at least 1 unit is needed., Also IV iron replacement series to be started., Note that the medication is not in-house [facility] pharmacy has been notified to go with case management to be able to obtain IV iron product tomorrow. Conferred by telephone with CUSTOMER ACCOUNT EXECUTIVE that was on-call for situation and there was no need for referral at this time. 2. Syncope, patient will only be up with assistance until after blood transf usion is completed. Then will have orthostatic blood pressures taken. And determine whether we can increase ambulation without being monitored. 3. Chronic anemia with low iron in the past, on discharge would need to refer the patient with education and/or making appointment with CUSTOMER ACCOUNT EXECUTIVE or possibly hematology to find the source of this anemia. Teaching has been done with the patient as she stated 1 time she was told she was going to be referred but never heard from anyone so she never followed up, that it is also her responsibility to follow-up with whoever is going to make the referral to make sure that this is looked at and to find out a cause. Rounded on patient after nurse practitioner. Personally examined and interviewed patient. Agree with exam findings and care plan as documented.
[2023-12-09] MEDS: diphenhydrAMINE 50MG CAPSULE 50 MG PO (22:28)
[2023-12-09] MEDS: ACETAMINOPHEN 500MG TAB 1000 MG PO (22:29)
[2023-12-09] MEDS: ONDANSETRON 4MG/2ML VIAL 4 MG IV (23:16)
--- NOTE | 2023-12-09 23:46 | PC.NURSE ---
Provider placed an order for Iron. [facility] pharmacy was called and they stated we would have to call our on-call pharmacist due to not having any in our omni. call center team leader pharmacist Oliver was contacted he then contacted Cherry. The director corporate security called me back (Cherry). She stated that case management would have to review the order due to that medication being done on an outpatient basis. That as soon as case management reviewed the order in the morning that she would be able to mix the medication for us. Provider was notified.
[2023-12-10 00:35] VITALS: BP 126/67; PULSE 90; RESP 16; TEMP 36.9; O2SAT 100
[2023-12-10 01:35] VITALS: BP 114/64; PULSE 77; RESP 18; TEMP 36.6; O2SAT 100
[2023-12-10] MEDS: MELATONIN 5MG TABLET 10 MG PO (02:01)
[2023-12-10 02:35] VITALS: BP 130/79; PULSE 78; RESP 16; TEMP 36.9; O2SAT 99
[2023-12-10 04:00] VITALS: BP 135/80; PULSE 68; RESP 16; TEMP 36.6; O2SAT 100; BMI 35.2
[2023-12-10 04:33] LABS: Hematocrit 23.5 % (37.0-47.0)
[2023-12-10 04:36] LABS: Hemoglobin 6.6 g/dL (12.2-16.2)
--- NOTE | 2023-12-10 04:36 | PC.NURSE ---
Addendum entered by Katrin Tavera RN 12/10/23 04:46: At this time, updated Doris LOOMIS [id number] about patient status. Doris requested an order for a redraw of hemoglobin from patient by lab to confirm critical hemoglobin level before making an order for another unit. Original Note: Cherry from lab called at around 04:35 about critical lab value (hemoglobin of 6.6). Doris LOOMIS was called at this time and was informed about hemoglobin. Doris stated that the patient will need to be given another unit of blood. Waiting for orders.
[2023-12-10 05:33] LABS: Hematocrit 22.9 % (37.0-47.0)
[2023-12-10 05:44] LABS: Hemoglobin 6.7 g/dL (12.2-16.2)
--- NOTE | 2023-12-10 06:09 | PC.NURSE ---
Patient was newly admitted this shift from the ED due to a syncopal episode at home, with a history of anemia and anxiety. Patient's lung sounds were clear, bowel sounds were active in all quadrants, and S1/S2 sounds of heart were heard upon auscultation. Patient has not complained of any pain this shift. She tolerates ambulating to the bathroom and in room very well. Patient was ordered to receive a blood transfusion this shift; she was given Tylenol and Benadryl for premedication. Patient received 1 unit of blood thus far this shift and tolerated the transfusion well. Patient did complain of slight nausea once during the transfusion and was given Zofran per JUL. Patient voiced that the Zofran helped and did not complain of further nausea during her transfusion, nor any afterwards. However, after the patient's Hgb/Hct was drawn post transfusion, lab called to report a critical hemoglobin (see prior note). This was reported back to Doris LOOMIS. A redraw was taken (see prior note) to confirm hemoglobin, and another unit of blood was ordered due to reporting the consecutive critical value once more. Vital signs remained stable during the shift, as well as her orthostatic blood pressures. Patient was given melatonin 10mg this shift to aid her rest. Patient has not had any further complaints at this time. Call light within reach.
[2023-12-10 07:00] LABS: Basophils % 0.6 % (0.1-2.0); Eosinophils % 0.6 % (0.1-12.0); Hematocrit 23.5 % (37.0-47.0); Lymphocytes # 2.2 K/mm3 (0.7-4.5); Lymphocytes % 31.8 % (10-50); Mean Corpuscular HGB Conc 29.1 g/dL (31.8-35.4); Mean Corpuscular Hemoglobin 17.1 pg (27.0-31.2); Mean Corpuscular Volume 58.9 fl (81-99); Mean Platelet Volume 9.1 fl (7.4-10.4); Monocytes # 0.3 K/mm3 (0.1-1.0); Monocytes % 4.6 % (1.7-9.3); Neutrophils # 4.4 K/mm3 (1.8-7.8); Neutrophils % 62.4 % (37.0-80.0); Platelet Count 569 K/mm3 (142-424); Red Blood Count 3.99 M/mm3 (4.20-5.40); Red Cell Distribution Width 24.6 % (11.5-17.5)
[2023-12-10 07:07] LABS: Albumin Level 3.7 g/dl (3.5-5.0); Chloride 109 mmol/L (98-107); Hemoglobin 6.8 g/dL (12.2-16.2); Potassium 3.4 mmoL/L (3.5-5.1); Sodium 138 mmol/L (136-145)
[2023-12-10 07:10] LABS: Alanine Aminotransferase 9 U/L (12-78); Albumin/Globulin Ratio 1.2 (1.1-1.8); Alkaline Phosphatase 70 U/L (38-126); Anion Gap 9.4 mEq/L (5-15); Aspartate Amino Transferase 19 U/L (14-36); Bilirubin,Total 0.4 mg/dl (0.2-1.3); Blood Urea Nitrogen 9 mg/dl (7-17); Calcium 8.3 mg/dl (8.4-10.2); Carbon Dioxide 23 mmol/L (22.0-30.0); Creatinine Clearance Estimated 161 mL/min (50-200); Estimated Glomerular Filt Rate 76 ml/min (>60); GFR (African American) 92 ML/MIN (>60); Globulin 3.2 g/dL (1.3-3.2); Glucose 95 mg/dl (74-100); Magnesium 1.8 mg/dl (1.6-2.3); Total Protein,Serum 6.9 g/dl (6.3-8.2)
[2023-12-10 07:31] LABS: Iron 28 ug/dL (37-170)
[2023-12-10 07:40] LABS: Total Iron Binding Capacity 397 ug/dL (265-497)
[2023-12-10] MEDS: ONDANSETRON 4MG/2ML VIAL 4 MG IV (07:57)
[2023-12-10 08:00] VITALS: BP 134/72; PULSE 78; RESP 16; TEMP 36.6; O2SAT 98
[2023-12-10 08:07] LABS: Ferritin 4.08 ng/ml (6.24-137)
[2023-12-10] MEDS: FERRIC CARBOXYMALTOSE 750 MG in 0.9 % SODIUM CHLORIDE 250 ML 530 MG IV (09:50)
[2023-12-10] MEDS: PANTOPRAZOLE 40MG TABLET 40 MG PO (09:50)
--- NOTE | 2023-12-10 12:27 | P.DS_ITS ---
General Admission date:: 12/09/23 Discharge date: 12/10/23 HPI HPI HPI: This 28-year-old female was at home when she had a syncopal spell., She notes a history of receiving blood transfusions in the past, this was also noted with her last child who is now 19 months old. She notes that her grandmother and her twin sister has the same problem. She notes that she does have significantly heavy bleeding for at least 3 days on a regular basis. That she has tried many different forms of control and not able to tolerate them. After conferring with the ER physician noting that the patient does need to have blood replaced she will be admitted to the floor. Patient is stable at this point in time. Ultrasound of showed no emergent need. Hospital Course Hospital Course Hospital Course: 28-year-old female who presented to the ER after syncopal event. Found to have significant anemia. Appears to be chronic and longstanding in nature based on her history and chart review. Hemoglobin 8 as far back as 2021. Has regular very heavy periods. Hemoglobin 6.4 on arrival to the ER. Received 1 unit packed red blood cells. Hemoglobin improved to 6.8. Vitals normal with normal blood pressure, heart rate, respiratory rate. Appropriate saturations on room air. No further dizziness or syncope. Negative orthostatic blood pressures. Severe iron deficiency anemia. Received 1 dose of Injectafer on morning of discharge. Has had reactions to Venofer in the past. Would benefit from second dose of Injectafer within the next 1 to 2 weeks. Given her clinical stability, longstanding nature of her anemia, we will not transfuse any further at this point. Peripheral smear obtained and pending. Iron studies show severe deficiency with ferritin of 4, iron saturation level of 7% and iron level of 28. Platelets normal at 569. MCV 58.9. Chart review shows negative workup for thalassemia in the past. Intolerant of oral iron per her report. Recommend close follow-up with PCP for repeat labs in the next week. Stable to discharge home. Further management as an outpatient. Total time spent on discharge 32 minutes in counseling, documentation, chart review, and direct care with patient. Exam Data for Last 24 hours Vital signs and Labs for Last 24 Hours: Temp Pulse Resp BP Pulse Ox O2 Del Method 97.9 F 78 16 134/72 98 Room Air 12/10/23 08:00 12/10/23 08:00 12/10/23 08:00 12/10/23 08:00 12/10/23 08:00 12/10/23 09:00 Laboratory Results - last 24 hr 12/09/23 18:03: WBC 7.8, RBC 4.09 L, Hgb 6.4 L*, Hct 22.9 L, MCV 56.1 L, MCH 15.6 L, MCHC 27.7 L, RDW 21.7 H, Plt Count 687 H, MPV 7.3 L, Neut % (Auto) 78.7, Lymph % (Auto) 17.1, [place] % (Auto) 3.7, Eos % (Auto) 0.2, Baso % (Auto) 0.2, Neut # (Auto) 6.1, Lymph # (Auto) 1.3, [place] # (Auto) 0.3, Eos # (Auto) 0.0, Baso # (Auto) 0.0, Sodium 137, Potassium 3.5, Chloride 107, Carbon Dioxide 20 L, Anion Gap 13.5, BUN 11, Creatinine 0.80, Estimated Creat Clear 182, Estimated GFR 87, Est GFR ( Amer) 105, Glucose 112 H, Calcium 9.1, Magnesium 1.8, Iron 31 L, TIBC 462, Iron Saturation 6.86285 L, Total Bilirubin 0.4, AST 36, ALT 15, Alkaline Phosphatase 77, Total Protein 7.9, Albumin 4.2, Globulin 3.7 H, Albumin/Globulin Ratio 1.1, TSH 1.46, Thyroxine (T4) 10.7, HCG, Quant 48 H 12/09/23 18:11: Urine Color Yellow, Urine Appearance Clear, Urine pH 6.0, Ur Specific [place] >= 1.030, Urine Protein Negative, Urine Glucose (UA) Negative, Urine Ketones Negative, Urine Blood Negative, Urine Nitrate Negative, Urine Bilirubin Negative, Urine Urobilinogen 1.0, Ur Leukocyte Esterase Trace, Urine RBC None, Urine WBC 5-10, Ur Squamous Epith Cells 5-10, Urine Bacteria 4+, Urine Mucus 1+, Urine HCG, Qual Positive 12/09/23 18:55: Blood Type O Positive, Antibody Screen Negative, Crossmatch (AHG) See Detail 12/10/23 03:42: Hgb 6.6 L*, Hct 23.5 L 08/05/24 05:18: Hgb 6.7 L*, Hct 22.9 L 12/10/23 06:42: WBC 7.0, RBC 3.99 L, Hgb 6.8 L*, Hct 23.5 L, MCV 58.9 L, MCH 17.1 L, MCHC 29.1 L, RDW 24.6 H, Plt Count 569 H, MPV 9.1, Neut % (Auto) 62.4, Lymph % (Auto) 31.8, [place] % (Auto) 4.6, Eos % (Auto) 0.6, Baso % (Auto) 0.6, Neut # (Auto) 4.4, Lymph # (Auto) 2.2, [place] # (Auto) 0.3, Eos # (Auto) 0.0, Baso # (Auto) 0.0, Sodium 138, Potassium 3.4 L, Chloride 109 H, Carbon Dioxide 23, Anion Gap 9.4, BUN 9, Creatinine 0.90, Estimated Creat Clear 161, Estimated GFR 76, Est GFR ( Amer) 92, Glucose 95, Calcium 8.3 L, Magnesium 1.8, Iron 28 L, TIBC 397, Iron Saturation 7.37706 L, Ferritin 4.08 L D, Total Bilirubin 0.4, AST 19 D, ALT 9 L D, Alkaline Phosphatase 70, Total Protein 6.9, Albumin 3.7 D , Globulin 3.2, Albumin/Globulin Ratio 1.2 I & O for Last 24 hours: Intake & Output 12/07/23 12/08/23 12/09/23 12/10/23 23:59 23:59 23:59 23:59 Intake Total 0 / 150 760 / 760 Output Total 0 / 0 2 / 2 Balance 0 / 150 758 / 758 Weight 107.955 kg 107.955 kg Constitutional Constitutional: no acute distress, obese and cooperative *Routine HEENT Exam Head: Present normocephalic Eye: Present EOMI and PERRL ENT: Present mucous membranes moist *Routine Neck Exam Neck: Present supple; Absent lymphadenopathy *Routine Respiratory Exam Respiratory: Present CTA bilaterally; Absent rhonchi, wheezes or crackles *Routine Cardiovascular Exam Cardiovascular: Present RRR; Absent murmur *Routine Abdominal Exam Abdominal: Present soft and normoactive bowel sounds; Absent tenderness *Routine Extremities Exam Extremities: Absent cyanosis, clubbing or edema *Routine Skin Exam Skin: Present warm; Absent rash *Routine Neurological Exam Neurological: Present alert, oriented X3 and moving all extremities; Absent altered mental status Results Data Completed and Pending Labs on day of discharge: Labs from last 24 hours 12/10/23 12/10/23 12/10/23 06:42 05:18 03:42 WBC 7.0 RBC 3.99 L Hgb 6.8 L* 6.7 L* 6.6 L* Hct 23.5 L 22.9 L 23.5 L MCV 58.9 L MCH 17.1 L MCHC 29.1 L RDW 24.6 H Plt Count 569 H MPV 9.1 Neut % (Auto) 62.4 Lymph % (Auto) 31.8 [place] % (Auto) 4.6 Eos % (Auto) 0.6 Baso % (Auto) 0.6 Neut # (Auto) 4.4 Lymph # (Auto) 2.2 [place] # (Auto) 0.3 Eos # (Auto) 0.0 Baso # (Auto) 0.0 Sodium 138 Potassium 3.4 L Chloride 109 H Carbon Dioxide 23 Anion Gap 9.4 BUN 9 Creatinine 0.90 Estimated Creat Clear 161 Estimated GFR 76 Est GFR ( Amer) 92 Glucose 95 Calcium 8.3 L Magnesium 1.8 Iron 28 L TIBC 397 Iron Saturation 7.81438 L Ferritin 4.08 L D Total Bilirubin 0.4 AST 19 D ALT 9 L D Alkaline Phosphatase 70 Total Protein 6.9 Albumin 3.7 D Globulin 3.2 Albumin/Globulin Ratio 1.2 TSH Thyroxine (T4) HCG, Quant Urine Color Urine Appearance Urine pH Ur Specific [place] Urine Protein Urine Glucose (UA) Urine Ketones Urine Blood Urine Nitrate Urine Bilirubin Urine Urobilinogen Ur Leukocyte Esterase Urine RBC Urine WBC Ur Squamous Epith Cells Urine Bacteria Urine Mucus Urine HCG, Qual Blood Type Antibody Screen Crossmatch (AHG) 12/09/23 12/09/23 12/09/23 18:55 18:11 18:03 WBC 7.8 RBC 4.09 L Hgb 6.4 L* Hct 22.9 L MCV 56.1 L MCH 15.6 L MCHC 27.7 L RDW 21.7 H Plt Count 687 H MPV 7.3 L Neut % (Auto) 78.7 Lymph % (Auto) 17.1 [place] % (Auto) 3.7 Eos % (Auto) 0.2 Baso % (Auto) 0.2 Neut # (Auto) 6.1 Lymph # (Auto) 1.3 [place] # (Auto) 0.3 Eos # (Auto) 0.0 Baso # (Auto) 0.0 Sodium 137 Potassium 3.5 Chloride 107 Carbon Dioxide 20 L Anion Gap 13.5 BUN 11 Creatinine 0.80 Estimated Creat Clear 182 Estimated GFR 87 Est GFR ( Amer) 105 Glucose 112 H Calcium 9.1 Magnesium 1.8 Iron 31 L TIBC 462 Iron Saturation 6.89289 L Ferritin Total Bilirubin 0.4 AST 36 ALT 15 Alkaline Phosphatase 77 Total Protein 7.9 Albumin 4.2 Globulin 3.7 H Albumin/Globulin Ratio 1.1 TSH 1.46 Thyroxine (T4) 10.7 HCG, Quant 48 H Urine Color Yellow Urine Appearance Clear Urine pH 6.0 Ur Specific [place] >= 1.030 Urine Protein Negative Urine Glucose (UA) Negative Urine Ketones Negative Urine Blood Negative Urine Nitrate Negative Urine Bilirubin Negative Urine Urobilinogen 1.0 Ur Leukocyte Esterase Trace Urine RBC None Urine WBC 5-10 Ur Squamous Epith Cells 5-10 Urine Bacteria 4+ Urine Mucus 1+ Urine HCG, Qual Positive Blood Type O Positive Antibody Screen Negative Crossmatch (AHG) See Detail DS: Diagnosis Discharge Diagnosis (1) Currently : Code(s): Z34.90 - Encounter for supervision of normal , unspecified, unspecified trimester (2) Anemia: Status: Acute Code(s): D64.9 - Anemia, unspecified (3) Syncope: Status: Acute Code(s): R55 - Syncope and collapse (4) Low serum iron: Status: Acute Code(s): E61.1 - Iron deficiency Meds Home Medications and Allergies Home Medications ?Medication ?Instructions ?Recorded ?Confirmed ?Type No Known Home Medications 12/10/23 12/10/23 History New Prescriptions to Start Prescriptions: Allergies Allergy/AdvReac Type Severity Reaction Status Date / Time iron [From Venofer] Allergy Mild Flushing Verified 12/10/23 09:31 Discharge Plan Disposition Patient Disposition: Home, Self-Care Condition: Fair Follow up Plan Follow up with: Dayne Ramirez MD [Primary Care Provider] - Enter time for follow up Prescriptions/Medication Reconciliation: No Action No Known Home Medications Problem Reconciliation Problems Reviewed?: Yes Patient Discharge Instructions ACTIVITY: Continue current activity DIET: continue same diet Stand Alone Forms: [facility] Work Release Patient Instructions: DI for Syncope in Adults (Fainting), DI for Iron Deficiency Anemia-Adult Print Language: Thai Providers Primary Care Provider: Dayne Ramirez Admit Provider: Harvey Shannon Attending Provider: Harvey Shannon
[2023-12-12 08:58] LABS: Peripheral Smear Review Scanned Result
--- NOTE | 2023-12-13 14:45 | CARE MANAGER ---
Called and spoke with patient regarding recent discharge. Patient stated that she is doing ok and is aware of scheduled f/u appt with her PCP. Patient is waiting for authorization for 2nd dose of injectafer, and we will call her when ok to schedule. No concerns voiced at time of call.
[2023-12-13 16:13] LABS: Zinc 54 ug/dL (44-115)
== END 2023-12-10 13:25 | disposition home or self-care (01) ==
LOC: UTC 17:28 → ER 17:52 → 2ND 20:30
PROVIDERS: Nurse Practitioner Family; Admitting Provider Internal Medicine Adolescent Medicine; Emergency Provider Emergency Medicine; PCP Internal Medicine Adolescent Medicine; Visit Provider Internal Medicine Adolescent Medicine
DX: O99.011 Anemia complicating pregnancy, first trimester; D50.9 Iron deficiency anemia, unspecified; R55 Syncope and collapse; Z68.35 Body mass index [BMI] 35.0-35.9, adult; E66.01 Morbid (severe) obesity due to excess calories
CPT/HCPCS: 36430; 36415; 76817; 80050; 80053; 81001; 81025; 82525; 82728; 83540; 83550; 83735; 84436; 84443; 84630; 84702; 85014; 85018; 85025; 86850; 87086; 93005; 99285; G0378; J1439; J2405; J7120; P9016

== ENCOUNTER 2023-12-20 11:09 | Outpatient (CLI) | payer BC, SELFPAY ==
[2023-12-20 11:35] VITALS: BP 128/64; PULSE 73; RESP 18; O2SAT 99
[2023-12-20 12:05] VITALS: BP 142/70; PULSE 75
== END 2023-12-20 12:10 | disposition home or self-care (01) ==
LOC: INF 11:10
PROVIDERS: Visit Provider Internal Medicine Adolescent Medicine
DX: D50.9 Iron deficiency anemia, unspecified (principal)
CPT/HCPCS: 96365; J1439

== ENCOUNTER 2024-08-08 16:20 | Emergency (ER) | payer BC, SELFPAY ==
[2024-08-08] VITALS (11 sets, daily range): BP systolic 135–171; BP diastolic 69–98; PULSE 48–68; RESP 12–19; TEMP 36.8; O2SAT 98–100; BMI 35.4
--- NOTE | 2024-08-08 16:23 | ECG_ITS ---
APPROVED REPORT Exam: Resting ECG HR:51 bpm ECG Measurements Heart Rate 51 AXES PA 155 P 19 QRSd 85 QRS 30 QT 419 T 37 QTc 395 Conclusion SINUS BRADYCARDIA BORDERLINE ECG No STEMI Electronically signed by : ITALIA CARRENO, 08/09/2024 03:36:14
--- NOTE | 2024-08-08 16:23 | [facility].EDCP ---
Discharge Plan Disposition Patient Disposition: Xfer Short-Term Hosp Condition: Fair Prescriptions Prescriptions: New ondansetron 4 mg tablet,disintegrating 4 mg PO QID PRN (Reason: nausea and vomiting) Qty: 10 0RF No Action ibuprofen 800 mg Tablet 800 mg PO TID hydrocodone-acetaminophen [Franklin] 5-325 mg Tablet 1 tab PO TID PRN (Reason: Pain, Mild) ferrous sulfate [iron] 325 mg (65 mg iron) Tablet 325 mg PO DAILY docusate sodium [Colace] 100 mg Capsule 100 mg PO BID Referrals Follow up/Referrals: Provider,Referral, MD [Primary Care Provider] - See instructions Activity Restrictions/Add. Instructions Additional Instructions/Restrictions: Patient to be transferred to [facility] care of Dr. Ortez of [facility] [employer] [facility]. Patient also needs to have follow-up of the right breast lesion seen on CT incidentally. Patient also has pulmonary nodule seen incidentally on CT that she had follow-up with her PCP for. Clinical Impressions Clinical Impression: Pre-eclampsia, , Breast mass, right, Pulmonary nodule Stand Alone Forms Stand Alone Forms: Transfer Record - ED Print Language Print Language: Spanish Discharge ED Provider: Renato Ervin HPI <WERNER Barahona - Last Filed: 08/08/24 20:10> General Chief Complaint: Chest Pain Stated Complaint: CHEST PAIN Time Seen by Provider: 08/08/24 16:23 History of Present Illness HPI narrative: Patient presents for evaluation of chest pressure. Patient is approximately 1 week from a normal vaginal delivery. For the last 2 days patient has had a frontal headache and today developed chest heaviness. There are no aggravating or relieving factors including shortness of breath fever chills hemoptysis hematochezia melena cough nausea vomiting diarrhea. Patient does not have a personal cardiac history but does have a strong family history. Patient also relates that her blood pressure has been elevated since her delivery and during her it ran 110 systolic and has been running much higher than that now. Related Data Home Medications ?Medication ?Instructions ?Recorded ?Confirmed docusate sodium 100 mg capsule 100 mg PO BID 08/08/24 08/08/24 (Colace) ferrous sulfate 325 mg (65 mg 325 mg PO DAILY 08/08/24 08/08/24 iron) tablet (iron) hydrocodone 5 mg-acetaminophen 325 1 tab PO TID PRN Pain, Mild 08/08/24 08/08/24 mg tablet ibuprofen 800 mg tablet 800 mg PO TID 08/08/24 08/08/24 Previous Rx's ?Medication ?Instructions ?Recorded ondansetron 4 mg disintegrating 4 mg PO QID PRN nausea and 08/08/24 tablet vomiting #10 tabs Allergies Allergy/AdvReac Type Severity Reaction Status Date / Time No Known Allergies Allergy Verified 08/08/24 16:31 PFS <WERNER Barahona - Last Filed: 08/08/24 20:10> PFS Disclaimer: The information contained in this section may have been updated after the patient was seen, as this information can be updated by other users. Medical History Obesity, Class II, BMI 35-39.9 Anxiety with depression Vitamin D deficiency (~09/03/17) Social History Smoking Status: Never smoker alcohol intake: never substance use type: denies use current occupational status: employed Travel in the last 8 weeks: None household members: family and children housing: house number of children: 1 caffeine: Yes Have you lived/traveled outside [place] in past 30 days?: No Contact w/someone who lives/traveled outside US past 30 days?: No Exposure to someone with infectious disease in past 14 days?: No Do you have a fever (greater than 100.4 F or 38 C)?: No Have you tested positive for COVID-19: No Exposed to someone with COVID-19 in past 14 days?: No Do you have a sore throat?: No Do you have a cough?: No Do you have any weakness?: No Do you have any diarrhea?: No Are you experiencing any unusual bleeding?: No Do you have any muscle aches/pain?: No Do you have any abdominal pain?: No Are you experiencing loss of taste or smell?: No Other Medical History Have you received the Flu Vaccine for this season: No Have you received the Pneumonia Vaccine: No <WERNER Barahona - Last Filed: 08/08/24 20:10> ROS Obtained: Yes Systems reviewed as appropriate & no additional complaints except as documented Physical Exam <WERNER Barahona - Last Filed: 08/08/24 20:10> General General appearance: alert and in no apparent distress Respiratory Respiratory exam: Present normal lung sounds bilaterally Cardiovascular Cardiovascular exam: Present regular rate Neurological Exam Neurological exam: Present alert and oriented X3 HEART Score <WERNER Barahona - Last Filed: 08/08/24 20:10> HEART Score HEART Score assessment performed?: No History (anamnesis): Slightly suspicious ECG: Normal Age: <45 years Risk factors: 1-2 risk factors Troponin: </= normal limit HEART Score: 1 <Renato Ervin MD - Last Filed: 08/08/24 20:46> HEART Score HEART Score: 1 Critical Care <WERNER Barahona - Last Filed: 08/08/24 20:10> Critical Care Time Critical Care Time: Yes Attestation: On 08/08/24, the high probability of a clinically significant, sudden or life threatening deterioration of the following system(s) required my full and direct attention, intervention and personal management. The time I documented below is in addition to time spent performing reported procedures but includes the following listed in this critical care notation. Total Time Total Critical Care Time: 35 Medical Decision Making <WERNER Barahona - Last Filed: 08/08/24 20:10> Medical Records Medical records reviewed: Yes I reviewed the patient's medical records. Robert Inquiry Pt receiving controlled substance: No Vital Signs Vital Signs: 08/08/24 16:22 08/08/24 16:43 08/08/24 17:01 Temperature 98.2 F Temperature Source Oral Pulse Rate 57 L 57 L Pulse Rate [Apical] 54 L Respiratory Rate 18 12 Blood Pressure 141/72 H 153/95 H Blood Pressure [Right Arm] 171/91 H Blood Pressure Mean Blood Pressure Mean [Right Arm] 117 Blood Pressure Source [Right Arm] Automatic Cuff Blood Pressure Position [Right Arm] Sitting 02 Sat by Pulse Oximetry 100 98 99 Oxygen Delivery Method Room Air Room Air Room Air 08/08/24 17:13 08/08/24 17:21 08/08/24 17:42 Temperature Temperature Source Pulse Rate 52 L 61 64 Pulse Rate [Apical] Respiratory Rate 19 18 18 Blood Pressure 160/95 H 138/87 147/87 H Blood Pressure [Right Arm] Blood Pressure Mean 113 104 Blood Pressure Mean [Right Arm] Blood Pressure Source [Right Arm] Blood Pressure Position [Right Arm] 02 Sat by Pulse Oximetry 98 Oxygen Delivery Method Room Air 08/08/24 18:01 08/08/24 18:21 08/08/24 19:56 Temperature Temperature Source Pulse Rate 56 L 61 48 L Pulse Rate [Apical] Respiratory Rate 18 18 19 Blood Pressure 146/76 H 149/85 H 148/91 H Blood Pressure [Right Arm] Blood Pressure Mean Blood Pressure Mean [Right Arm] Blood Pressure Source [Right Arm] Blood Pressure Position [Right Arm] 02 Sat by Pulse Oximetry 99 99 100 Oxygen Delivery Method Room Air Room Air Room Air 08/08/24 20:01 Temperature Temperature Source Pulse Rate Pulse Rate [Apical] Respiratory Rate 15 Blood Pressure 135/69 Blood Pressure [Right Arm] Blood Pressure Mean Blood Pressure Mean [Right Arm] Blood Pressure Source [Right Arm] Blood Pressure Position [Right Arm] 02 Sat by Pulse Oximetry Oxygen Delivery Method Room Air Lab Data Lab results reviewed: Yes I reviewed the patient's lab results. Labs: Lab Results 08/08/24 16:35: WBC 6.5, RBC 3.46 L, Hgb 9.1 L, Hct 29.0 L, MCV 83.8, MCH 26.3 L, MCHC 31.4 L, RDW 15.9, Plt Count 375, MPV 9.4, Neut % (Auto) 62.7, Lymph % (Auto) 26.1, In[place] % (Auto) 6.7, Eos % (Auto) 2.1, Baso % (Auto) 0.3, Neut # (Auto) 4.1, Lymph # (Auto) 1.7, [place] # (Auto) 0.4, Eos # (Auto) 0.1, Baso # (Auto) 0.0, PT 9.9 L, INR 0.87 L, Sodium 140, Potassium 3.1 L, Chloride 109 H, Carbon Dioxide 26, Anion Gap 8.1, BUN 8, Creatinine 0.70, Estimated Creat Clear 207, Estimated GFR 100, Est GFR ( Amer) 121, Glucose 76, Uric Acid 5.8, Calcium 8.8, Magnesium 1.8, Total Bilirubin 0.4, AST 22, ALT 17, Alkaline Phosphatase 124, Troponin I < 0.01, Total Protein 6.1 L, Albumin 3.1 L, Globulin 3.0, Albumin/Globulin Ratio 1.0 L, Procalcitonin 0.038, TSH 1.31, Free T4 Index 3.2 L, Thyroxine (T4) 12.8 H, T3 Uptake 25, HCV Ab VERNON w/Rflx PCR Qn Negative, HIV Ag/Ab Combo Qual Negative 08/08/24 17:34: SARS-CoV-2 (PCR) Not detected, Influenza A Untype (PCR) Not detected, Influenza Type B (PCR) Not detected 08/08/24 18:03: Urine Color Yellow, Urine Appearance Clear, Urine pH 7.0, Ur Specific Excel 1.010, Urine Protein 1+ A, Urine Glucose (UA) Negative, Urine Ketones Negative, Urine Blood 3+ A, Urine Nitrate Negative, Urine Bilirubin Negative, Urine Urobilinogen 4.0, Ur Leukocyte Esterase Negative, Urine RBC 3-5, Urine WBC 5-10, Ur Squamous Epith Cells 5-10, Urine Bacteria Trace, Urine Creatinine 64, Urine Total Protein 19.0 H 08/08/24 16:35 08/08/24 16:35 Response Orders (Tests/Meds): ED MEDICATIONS Discontinued Medications Generic Name Dose Route Start Last Admin Trade Name Freq PRN Reason Stop Dose Admin Acetaminophen 1,000 mg 08/08/24 16:49 08/08/24 17:00 Acetaminophen 500mg Tab PO 08/08/24 16:50 1,000 mg ONCE ONE Administration Diphenhydramine HCl 50 mg 08/08/24 18:22 08/08/24 18:45 Diphenhydramine 50mg/Ml Vial IV 08/08/24 18:23 50 mg ONCE ONE Administration Magnesium Sulfate 2 gm in 50 mls @ 50 mls/hr 08/08/24 19:28 08/08/24 19:45 Magnesium Sulfate 2gm/50ml Premix IV 08/08/24 20:27 50 mls/hr ONCE ONE Administration Iopamidol 70 ml 08/08/24 17:06 08/08/24 17:06 Iopamidol-370 (76%);100ml Bottle IV 08/08/24 17:07 70 ml ONCE ONE Administration Ketorolac Tromethamine 15 mg 08/08/24 18:22 08/08/24 18:43 Ketorolac 30mg/Ml Vial IV 08/08/24 18:23 15 mg ONCE ONE Administration Ondansetron HCl 4 mg 08/08/24 16:49 08/08/24 17:00 Ondansetron 4mg/2ml Vial IV 08/08/24 16:50 4 mg ONCE ONE Administration Potassium Chloride 60 meq 08/08/24 18:57 08/08/24 19:16 Potassium Chloride 20meq Tab PO 08/08/24 18:58 60 meq ONCE ONE Administration Sodium Chloride 50 ml 08/08/24 17:06 08/08/24 17:06 0.9 % Sodium Chloride 50 Ml Vial IV 08/08/24 17:07 50 ml ONCE ONE Administration Sodium Chloride 10 ml 08/08/24 17:06 08/08/24 17:06 Sodium Chloride 0.9% 10ml Syr (Rad Only) IV 08/08/24 17:07 10 ml ONCE ONE Administration ORDERS Category Date Time Status CT angio chest PE protocol Stat Cat Scan 08/08/24 16:[address] head/brain wo con Stat Cat Scan 08/08/24 16:49 Completed CBC w/Auto Diff [Complete Blood Count Auto Diff] Stat Lab 08/08/24 16:35 Completed CMP [Comprehensive Metabolic Panel] Stat Lab 08/08/24 16:35 Completed Creatinine,Urine Random Stat Lab 08/08/24 18:03 Completed HIV Combo Stat Lab 08/08/24 16:35 Completed Hepatitis C Ab Qual. W/ RFX Stat Lab 08/08/24 16:35 Completed INR [Prothrombin Time INR] Stat Lab 08/08/24 16:35 Completed Magnesium Stat Lab 08/08/24 16:35 Completed Procalcitonin Stat Lab 08/08/24 16:35 Completed Rapid PCR Covid and Flu A/B Stat Lab 08/08/24 17:34 Completed Thyroid Panel Stat Lab 08/08/24 16:35 Completed Total Protein,Urine Random Stat Lab 08/08/24 18:03 Completed Trop I [Troponin I] Stat Lab 08/08/24 16:35 Completed Troponin I Q3H Lab 08/08/24 20:00 Ordered Troponin I Q3H Lab 08/08/24 23:00 Ordered UA [Urinalysis and Microscopic] Stat Lab 08/08/24 18:03 Completed Uric Acid Stat Lab 08/08/24 16:35 Completed MDM Narrative Medical Decision Narrative: In summary patient is a 29-year-old female who presents to the emergency department for evaluation of headache chest pressure and self-reported elevated blood pressure. Patient is hypertensive on arrival with a blood pressure of 171/91 pulse 54 with sinus bradycardia on the bedside monitor breathing 18 times a minute satting at 100% room air upon arrival, afebrile at 98.2. Skull exam is remarkable for no focal neurologic deficits patient is awake alert and oriented person place circumstance Hungry Horse Coma Score 15 cranials 2 through 12 intact grossly to exam pupils equal round reactive to light, no reproducible chest pain on palpation, clear breath sounds no increased work of breathing or accessory muscle use, abdomen is distended soft nontender no rebound no guarding no rigidity.. Differential diagnosis includes preeclampsia versus ACS versus PE versus viral syndrome etc. Initial workup will be conducted with hematologic labs CT scan of the head without contrast CT PE protocol urinalysis respiratory swabs. Initial interventions include Tylenol and Zofran for now. Initial workup reviewed by me shows that her white count 6.5 hemoglobin hematocrit 9.1 and 29.0 neutrophil count of 4.1 INR 0.87 chemistry shows potassium 3.1 troponin is less than 0.01 and the remainder of her hematologic labs are nonactionable. Urinalysis however shows 1+ protein ketone -3+ blood negative for nitrites negative for leukocyte Estrace and microscopic exam shows 3-5 red cells 5-10 white cells 5-10 epithelial cells trace bacteria. spot creatinine was 64 and urine total protein was 19.0. My informal interpretation of her imaging shows no acute intracranial process and she has no evidence of thrombus or other acute intrathoracic abnormality prior to radiology read. Please see the final read for their results interpretation. Note was made of right breast of the 1.5 x 1.5 x 1 asymmetric nodular opacity within the right breast and also pulmonary nodules. Upon repeat evaluation was still having headache but her blood pressure has been trending in the 140 range the remainder of her stay. Given this the patient was placed in observation status at 1800 hrs. Medical necessity for observational status is serial troponins and urine evaluation for protein creatinine. The patient was provided serial reevaluations continuous cardiac monitoring pulse oximetry while awaiting results. Patient delivered at [facility] and requested transfer there if admission is necessary. Given that we had a interactive discussion with the on-call [facility] [facility] Dr. Ledbetter at [facility] about presentation and patient management and who has accepted her in transfer. Total time in observation was 2 hours. <Renato Ervin MD - Last Filed: 08/08/24 20:46> Vital Signs Vital Signs: 08/08/24 16:22 08/08/24 16:43 08/08/24 17:01 Temperature 98.2 F Temperature Source Oral Pulse Rate 57 L 57 L Pulse Rate [Apical] 54 L Respiratory Rate 18 12 Blood Pressure 141/72 H 153/95 H Blood Pressure [Right Arm] 171/91 H Blood Pressure Mean Blood Pressure Mean [Right Arm] 117 Blood Pressure Source [Right Arm] Automatic Cuff Blood Pressure Position [Right Arm] Sitting 02 Sat by Pulse Oximetry 100 98 99 Oxygen Delivery Method Room Air Room Air Room Air 08/08/24 17:13 08/08/24 17:21 08/08/24 17:42 Temperature Temperature Source Pulse Rate 52 L 61 64 Pulse Rate [Apical] Respiratory Rate 19 18 18 Blood Pressure 160/95 H 138/87 147/87 H Blood Pressure [Right Arm] Blood Pressure Mean 113 104 Blood Pressure Mean [Right Arm] Blood Pressure Source [Right Arm] Blood Pressure Position [Right Arm] 02 Sat by Pulse Oximetry 98 Oxygen Delivery Method Room Air 08/08/24 18:01 08/08/24 18:21 08/08/24 19:56 Temperature Temperature Source Pulse Rate 56 L 61 48 L Pulse Rate [Apical] Respiratory Rate 18 18 19 Blood Pressure 146/76 H 149/85 H 148/91 H Blood Pressure [Right Arm] Blood Pressure Mean Blood Pressure Mean [Right Arm] Blood Pressure Source [Right Arm] Blood Pressure Position [Right Arm] 02 Sat by Pulse Oximetry 99 99 100 Oxygen Delivery Method Room Air Room Air Room Air 08/08/24 20:01 Temperature Temperature Source Pulse Rate Pulse Rate [Apical] Respiratory Rate 15 Blood Pressure 135/69 Blood Pressure [Right Arm] Blood Pressure Mean Blood Pressure Mean [Right Arm] Blood Pressure Source [Right Arm] Blood Pressure Position [Right Arm] 02 Sat by Pulse Oximetry Oxygen Delivery Method Room Air Lab Data Labs: Lab Results 08/08/24 16:35: WBC 6.5, RBC 3.46 L, Hgb 9.1 L, Hct 29.0 L, MCV 83.8, MCH 26.3 L, MCHC 31.4 L, RDW 15.9, Plt Count 375, MPV 9.4, Neut % (Auto) 62.7, Lymph % (Auto) 26.1, [place] % (Auto) 6.7, Eos % (Auto) 2.1, Baso % (Auto) 0.3, Neut # (Auto) 4.1, Lymph # (Auto) 1.7, [place] # (Auto) 0.4, Eos # (Auto) 0.1, Baso # (Auto) 0.0, PT 9.9 L, INR 0.87 L, Sodium 140, Potassium 3.1 L, Chloride 109 H, Carbon Dioxide 26, Anion Gap 8.1, BUN 8, Creatinine 0.70, Estimated Creat Clear 207, Estimated GFR 100, Est GFR ( Amer) 121, Glucose 76, Uric Acid 5.8, Calcium 8.8, Magnesium 1.8, Total Bilirubin 0.4, AST 22, ALT 17, Alkaline Phosphatase 124, Troponin I < 0.01, Total Protein 6.1 L, Albumin 3.1 L, Globulin 3.0, Albumin/Globulin Ratio 1.0 L, Procalcitonin 0.038, TSH 1.31, Free T4 Index 3.2 L, Thyroxine (T4) 12.8 H, T3 Uptake 25, HCV Ab VERNON w/Rflx PCR Qn Negative, HIV Ag/Ab Combo Qual Negative 08/08/24 17:34: SARS-CoV-2 (PCR) Not detected, Influenza A Untype (PCR) Not detected, Influenza Type B (PCR) Not detected 08/08/24 18:03: Urine Color Yellow, Urine Appearance Clear, Urine pH 7.0, Ur Specific Excel 1.010, Urine Protein 1+ A, Urine Glucose (UA) Negative, Urine Ketones Negative, Urine Blood 3+ A, Urine Nitrate Negative, Urine Bilirubin Negative, Urine Urobilinogen 4.0, Ur Leukocyte Esterase Negative, Urine RBC 3-5, Urine WBC 5-10, Ur Squamous Epith Cells 5-10, Urine Bacteria Trace, Urine Creatinine 64, Urine Total Protein 19.0 H Response Orders (Tests/Meds): ED MEDICATIONS Discontinued Medications Generic Name Dose Route Start Last Admin Trade Name Freq PRN Reason Stop Dose Admin Acetaminophen 1,000 mg 08/08/24 16:49 08/08/24 17:00 Acetaminophen 500mg Tab PO 08/08/24 16:50 1,000 mg ONCE ONE Administration Diphenhydramine HCl 50 mg 08/08/24 18:22 08/08/24 18:45 Diphenhydramine 50mg/Ml Vial IV 08/08/24 18:23 50 mg ONCE ONE Administration Magnesium Sulfate 2 gm in 50 mls @ 50 mls/hr 08/08/24 19:28 08/08/24 19:45 Magnesium Sulfate 2gm/50ml Premix IV 08/08/24 20:27 50 mls/hr ONCE ONE Administration Iopamidol 70 ml 08/08/24 17:06 08/08/24 17:06 Iopamidol-370 (76%);100ml Bottle IV 08/08/24 17:07 70 ml ONCE ONE Administration Ketorolac Tromethamine 15 mg 08/08/24 18:22 08/08/24 18:43 Ketorolac 30mg/Ml Vial IV 08/08/24 18:23 15 mg ONCE ONE Administration Ondansetron HCl 4 mg 08/08/24 16:49 08/08/24 17:00 Ondansetron 4mg/2ml Vial IV 08/08/24 16:50 4 mg ONCE ONE Administration Potassium Chloride 60 meq 08/08/24 18:57 08/08/24 19:16 Potassium Chloride 20meq Tab PO 08/08/24 18:58 60 meq ONCE ONE Administration Sodium Chloride 50 ml 08/08/24 17:06 08/08/24 17:06 0.9 % Sodium Chloride 50 Ml Vial IV 08/08/24 17:07 50 ml ONCE ONE Administration Sodium Chloride 10 ml 08/08/24 17:06 08/08/24 17:06 Sodium Chloride 0.9% 10ml Syr (Rad Only) IV 08/08/24 17:07 10 ml ONCE ONE Administration ORDERS Category Date Time Status CT angio chest PE protocol Stat Cat Scan 08/08/24 16:[address] head/brain wo con Stat Cat Scan 08/08/24 16:49 Completed CBC w/Auto Diff [Complete Blood Count Auto Diff] Stat Lab 08/08/24 16:35 Completed CMP [Comprehensive Metabolic Panel] Stat Lab 08/08/24 16:35 Completed Creatinine,Urine Random Stat Lab 08/08/24 18:03 Completed HIV Combo Stat Lab 08/08/24 16:35 Completed Hepatitis C Ab Qual. W/ RFX Stat Lab 08/08/24 16:35 Completed INR [Prothrombin Time INR] Stat Lab 08/08/24 16:35 Completed Magnesium Stat Lab 08/08/24 16:35 Completed Procalcitonin Stat Lab 08/08/24 16:35 Completed Rapid PCR Covid and Flu A/B Stat Lab 08/08/24 17:34 Completed Thyroid Panel Stat Lab 08/08/24 16:35 Completed Total Protein,Urine Random Stat Lab 08/08/24 18:03 Completed Trop I [Troponin I] Stat Lab 08/08/24 16:35 Completed Troponin I Q3H Lab 08/08/24 20:00 Ordered Troponin I Q3H Lab 08/08/24 23:00 Ordered UA [Urinalysis and Microscopic] Stat Lab 08/08/24 18:03 Completed Uric Acid Stat Lab 08/08/24 16:35 Completed ECG Data Tracing #1: ECG Narrative: Independently inter by me rate is 51, rhythm is regular, axis is normal, no ST elevation in anatomical contiguous leads, QTc 395 MDM Narrative Medical Decision Narrative: In summary patient is a 29-year-old female who presents to the emergency department for evaluation of headache chest pressure and self-reported elevated blood pressure. Patient is hypertensive on arrival with a blood pressure of 171/91 pulse 54 with sinus bradycardia on the bedside monitor breathing 18 times a minute satting at 100% room air upon arrival, afebrile at 98.2. Skull exam is remarkable for no focal neurologic deficits patient is awake alert and oriented person place circumstance Konstantin Coma Score 15 cranials 2 through 12 intact grossly to exam pupils equal round reactive to light, no reproducible chest pain on palpation, clear breath sounds no increased work of breathing or accessory muscle use, abdomen is distended soft nontender no rebound no guarding no rigidity.. Differential diagnosis includes preeclampsia versus ACS versus PE versus viral syndrome etc. Initial workup will be conducted with hematologic labs CT scan of the head without contrast CT PE protocol urinalysis respiratory swabs. Initial interventions include Tylenol and Zofran for now. Initial workup reviewed by me shows that her white count 6.5 hemoglobin hematocrit 9.1 and 29.0 neutrophil count of 4.1 INR 0.87 chemistry shows potassium 3.1 troponin is less than 0.01 and the remainder of her hematologic labs are nonactionable. Urinalysis however shows 1+ protein ketone -3+ blood negative for nitrites negative for leukocyte Estrace and microscopic exam shows 3-5 red cells 5-10 white cells 5-10 epithelial cells trace bacteria. spot creatinine was 64 and urine total protein was 19.0. My informal interpretation of her imaging shows no acute intracranial process and she has no evidence of thrombus or other acute intrathoracic abnormality prior to radiology read. Please see the final read for their results interpretation. Note was made of right breast of the 1.5 x 1.5 x 1 asymmetric nodular opacity within the right breast and also pulmonary nodules. Upon repeat evaluation was still having headache but her blood pressure has been trending in the 140 range the remainder of her stay. Given this the patient was placed in observation status at 1800 hrs. Medical necessity for observational status is serial troponins and urine evaluation for protein creatinine. The patient was provided serial reevaluations continuous cardiac monitoring pulse oximetry while awaiting results. Patient delivered at [facility] and requested transfer there if admission is necessary. Given that we had a interactive discussion with the on-call [facility] [facility] [employer] Dr. Ledbetter at [facility] about presentation and patient management and who has accepted her in transfer. Total time in observation was 2 hours. I was consulted by the PABLO, and we discussed the complexity of the problems being addressed. I approved the treatment and management plan for this patient's care in the emergency department, thus performing a substantive portion of the medical decision making. Renato Ervin MD
--- NOTE | 2024-08-08 16:49 | CT_ITS ---
PROCEDURE INFORMATION: Exam: CTA Chest With Contrast Exam date and time: 08/08/2024 5:07 PM Age: 29 years old Clinical indication: Other: chest pain TECHNIQUE: Imaging protocol: Computed tomographic angiography of the chest with contrast. Exam focused on the arteries. 3D rendering (Not supervised by radiologist): MIP and/or 3D reconstructed images were created by the technologist. Radiation optimization: All CT scans at this facility use at least one of these dose optimization techniques: automated exposure control; mA and/or kV adjustment per patient size (includes targeted exams where dose is matched to clinical indication); or iterative reconstruction. Contrast material: ISO 370; Contrast volume: 70 ml; Contrast route: INTRAVENOUS (IV); COMPARISON: CR XR CHEST 2V 08/25/2020 12:29 AM FINDINGS: Limitations: Streak artifact - mild. Motion artifact - mild. Pulmonary arteries: No definite pulmonary embolism. Aorta: Unremarkable. No aneurysm. Lungs: No definite consolidation. Few nodules and/or focal scarring, up to 0.3 cm. Pleural spaces: No significant pleural effusion. No pneumothorax. Heart: Mild cardiomegaly. No significant pericardial effusion. Lymph nodes: No pathologically enlarged lymph nodes. Bones/joints: No acute fracture. Soft tissues: Apparent 1.5 x 1.5 x 1.0 cm asymmetric nodular opacity within RIGHT breast (coronal image 16). IMPRESSION: 1. No definite CT evidence of pulmonary embolism. 2. Possible RIGHT breast lesion. Follow-up as clinically warranted. 3. Pulmonary nodules. If patient does not have known cancer, follow up should be based on clinical information because of the low risk of cancer in this age group. (brooke Gonzalez al., Fleischner Society, 2017).
--- NOTE | 2024-08-08 16:49 | CT_ITS ---
PROCEDURE INFORMATION: Exam: CT Head Without Contrast Exam date and time: 08/08/2024 5:05 PM Age: 29 years old Clinical indication: Pain; Headache; Additional info: headache TECHNIQUE: Imaging protocol: Computed tomography of the head without contrast. Radiation optimization: All CT scans at this facility use at least one of these dose optimization techniques: automated exposure control; mA and/or kV adjustment per patient size (includes targeted exams where dose is matched to clinical indication); or iterative reconstruction. COMPARISON: No relevant prior studies available. FINDINGS: Brain: Normal. No hemorrhage. Unremarkable white matter. No mass effect. Cerebral ventricles: No ventriculomegaly. Paranasal sinuses: Visualized sinuses are unremarkable. No fluid levels. Mastoid air cells: Visualized mastoid air cells are well aerated. Bones: Unremarkable. No acute fracture. Soft tissues: Unremarkable. IMPRESSION: No acute intracranial abnormality.
[2024-08-08 16:57] LABS: Basophils % 0.3 % (0.1-2.0); Eosinophils # 0.1 K/mm3 (0.0-0.4); Eosinophils % 2.1 % (0.1-12.0); Hemoglobin 9.1 g/dL (12.2-16.2); Lymphocytes # 1.7 K/mm3 (0.7-4.5); Lymphocytes % 26.1 % (10-50); Mean Corpuscular HGB Conc 31.4 g/dL (31.8-35.4); Mean Corpuscular Hemoglobin 26.3 pg (27.0-31.2); Mean Corpuscular Volume 83.8 fl (81-99); Mean Platelet Volume 9.4 fl (7.4-10.4); Monocytes # 0.4 K/mm3 (0.1-1.0); Monocytes % 6.7 % (1.7-9.3); Neutrophils # 4.1 K/mm3 (1.8-7.8); Neutrophils % 62.7 % (37.0-80.0); Platelet Count 375 K/mm3 (142-424); Red Blood Count 3.46 M/mm3 (4.20-5.40); Red Cell Distribution Width 15.9 % (11.5-17.5); White Blood Count 6.5 K/mm3 (4.8-10.8)
[2024-08-08] MEDS: ACETAMINOPHEN 500MG TAB 1000 MG PO (17:00)
[2024-08-08] MEDS: ONDANSETRON 4MG/2ML VIAL 4 MG IV (17:00)
[2024-08-08 17:02] LABS: Albumin Level 3.1 g/dl (3.5-5.0); Chloride 109 mmol/L (98-107); Potassium 3.1 mmoL/L (3.5-5.1); Sodium 140 mmol/L (136-145)
[2024-08-08 17:04] LABS: INR 0.87 (0.9-1.1); Prothrombin Time 9.9 seconds (10.1-12.5)
[2024-08-08 17:05] LABS: Alanine Aminotransferase 17 U/L (12-78); Alkaline Phosphatase 124 U/L (38-126); Anion Gap 8.1 mEq/L (5-15); Aspartate Amino Transferase 22 U/L (14-36); Bilirubin,Total 0.4 mg/dl (0.2-1.3); Blood Urea Nitrogen 8 mg/dl (7-17); Calcium 8.8 mg/dl (8.4-10.2); Carbon Dioxide 26 mmol/L (22.0-30.0); Creatinine Clearance Estimated 207 mL/min (50-200); Estimated Glomerular Filt Rate 100 ml/min (>60); GFR (African American) 121 ML/MIN (>60); Glucose 76 mg/dl (74-100); Total Protein,Serum 6.1 g/dl (6.3-8.2)
[2024-08-08 17:06] LABS: Magnesium 1.8 mg/dl (1.6-2.3)
[2024-08-08] MEDS: 0.9 % SODIUM CHLORIDE 50 ML VIAL IV (17:06)
[2024-08-08] MEDS: SODIUM CHLORIDE 0.9% 10ML SYR (RAD ONLY) 10 ML IV (17:06)
[2024-08-08] MEDS: IOPAMIDOL-370 (76%);100ML BOTTLE 70 ML IV (17:06)
[2024-08-08 17:19] LABS: Troponin I < 0.01 ng/ml (0.00-0.034)
[2024-08-08 17:31] LABS: Triiodothryronine (T3) Uptake 25 % (23.5-40.5)
[2024-08-08 17:32] LABS: Free Thyroxine Index 3.2 ug/dL (5.93-13.13); T4 (Thyroxine) 12.8 ug/dl (5.53-11.0)
[2024-08-08 17:40] LABS: Coronavirus 19, PCR Not Detected (NotDetected); Influenza A, PCR Not Detected (NotDetected); Influenza B, PCR Not Detected (NotDetected)
[2024-08-08 17:45] LABS: Thyroid Stimulating Hormone 1.31 uIU/mL (0.465-4.68)
[2024-08-08 17:46] LABS: HIV Combo NEGATIVE (Negative)
[2024-08-08 17:54] LABS: Hepatitis C Ab Qual. W/ RFX NEGATIVE (Negative)
[2024-08-08 17:58] LABS: Procalcitonin 0.038 ng/mL (0.0-2.0)
[2024-08-08 18:06] LABS: Microscopic, Urine URINE MICROSCOPIC (MICROSCOPIC)
[2024-08-08 18:18] LABS: Appearance,Urine CLEAR (Clear); Bilirubin,Urine Negative (Negative); Blood, Urine 3+ (Negative); Color,Urine YELLOW (Yellow); Glucose,Urine (UA) Negative (Negative); Ketones,Urine Negative (Negative); Leukocyte Esterase,Urine Negative (Negative); Nitrate,Urine Negative (Negative); Protein,Urine 1+ (Negative)
[2024-08-08] MEDS: KETOROLAC 30MG/ML VIAL 15 MG IV (18:43)
[2024-08-08] MEDS: diphenhydrAMINE 50MG/ML VIAL 50 MG IV (18:45)
[2024-08-08 18:49] LABS: Bacteria,Urine Trace /lpf
[2024-08-08 18:52] LABS: Uric Acid 5.8 mg/dl (2.5-6.2)
[2024-08-08 19:12] LABS: Creatinine,Urine Random 64 mg/dL (Not Estab.)
[2024-08-08] MEDS: POTASSIUM CHLORIDE 20MEQ TAB 60 MEQ PO (19:16)
--- NOTE | 2024-08-08 19:31 | PC.NURSE ---
called [facility] at this time for possible transfer
--- NOTE | 2024-08-08 19:36 | PC.NURSE ---
Dr Ervin speaking with Dr Ledbetter at [facility] at this time
--- NOTE | 2024-08-08 19:37 | PC.NURSE ---
Pt accepted to [facility] by Dr Ledbetter
[2024-08-08] MEDS: MAGNESIUM SULFATE IN WATER 2 GM/50 ML PIGGYBACK IV (19:45)
[2024-08-08] MEDS: PROCHLORPERAZINE 10MG/2ML VIAL 5 MG IV (21:19)
--- NOTE | 2024-08-08 21:23 | PC.NURSE ---
Report called to BRET José at [facility]
== END 2024-08-08 21:26 | disposition short-term general hospital (02) ==
PROVIDERS: Physician Assistant; Emergency Provider Emergency Medicine
DX: R91.1 Solitary pulmonary nodule (principal); N63.10 Unspecified lump in the right breast, unspecified quadrant; O14.95 Unspecified pre-eclampsia, complicating the puerperium; R07.9 Chest pain, unspecified; R51.9 Headache, unspecified; F41.9 Anxiety disorder, unspecified
CPT/HCPCS: 70450; 71275; 80053; 81001; 82570; 83735; 84145; 84156; 84436; 84443; 84479; 84484; 84550; 85025; 85610; 86803; 87389; 87636; 93005; 96365; 96374; 96375; 99291; J0780; J1200; J1885; J2405; J3475; Q9967

== ENCOUNTER 2024-08-18 19:25 | Outpatient (CLI) | payer BC, SELFPAY ==
[2024-08-18 19:29] VITALS: BMI 35.1
--- NOTE | 2024-08-18 19:35 | PC.NURSE ---
Pt arrived to unit, accompanied by family member via ambulatory from home with c/o elevated BP, headache, occasional chest pressure and seeing spots. Pt reports that she is 2 weeks and was recently on mag and sent to [facility] where she works for this same issue. Pt sts that she was admitted there, but not sent home on BP medication. Pt reports taking Tylenol and Ibuprofen approx 1700 with no relief. Pt rates headache pain 11/13. POC discussed, pt agreeable. Pt shown to restroom to leave UA sample at this time.
[2024-08-18 19:40] VITALS: BP 156/102; PULSE 73; RESP 17; TEMP 36.9; O2SAT 98; BMI 35.1
--- NOTE | 2024-08-18 19:41 | PC.NURSE ---
Vitals obtained, lungs clear throughout, reflexes +1, clonus absent.
[2024-08-18 19:45] VITALS: BP 156/102
--- NOTE | 2024-08-18 19:50 | PC.NURSE ---
IV placed at this time. 20 G in right arm, 1 attempt, pt tolerated well. Labs collected.
[2024-08-18 19:53] LABS: Microscopic, Urine URINE MICROSCOPIC (MICROSCOPIC)
[2024-08-18 20:00] VITALS: BP 138/85
[2024-08-18 20:15] LABS: Basophils % 0.1 % (0.1-2.0); Eosinophils # 0.1 K/mm3 (0.0-0.4); Eosinophils % 1.5 % (0.1-12.0); Hematocrit 30.8 % (37.0-47.0); Hemoglobin 9.6 g/dL (12.2-16.2); Lymphocytes % 27.8 % (10-50); Mean Corpuscular HGB Conc 31.2 g/dL (31.8-35.4); Mean Corpuscular Hemoglobin 25.5 pg (27.0-31.2); Mean Corpuscular Volume 81.9 fl (81-99); Mean Platelet Volume 9.6 fl (7.4-10.4); Monocytes # 0.4 K/mm3 (0.1-1.0); Monocytes % 4.8 % (1.7-9.3); Neutrophils # 4.8 K/mm3 (1.8-7.8); Neutrophils % 65.5 % (37.0-80.0); Nucleated Red Blood Cells # 0 10^3/uL; Nucleated Red Blood Cells % 0 %; Platelet Count 539 K/mm3 (142-424); Red Blood Count 3.76 M/mm3 (4.20-5.40); Red Cell Distribution Width-SD 47.2 fL; White Blood Count 7.3 K/mm3 (4.8-10.8)
[2024-08-18 20:16] LABS: Creatinine,Urine Random 175 mg/dL (Not Estab.)
[2024-08-18 20:23] VITALS: BP 138/84
[2024-08-18 20:24] LABS: Fibrinogen 267 mg/dL (229.9-363.5); INR 0.88 (0.9-1.1)
[2024-08-18 20:25] LABS: Appearance,Urine CLEAR (Clear); Bilirubin,Urine Negative (Negative); Blood, Urine 1+ (Negative); Color,Urine YELLOW (Yellow); Glucose,Urine (UA) Negative (Negative); Ketones,Urine Negative (Negative); Leukocyte Esterase,Urine Negative (Negative); Nitrate,Urine Negative (Negative); Protein,Urine Negative (Negative); Specific Gravity, Urine >= 1.030 (1.005-1.030); Urobilinogen,Urine 0.2 EU/dl (0.2)
[2024-08-18 20:25] LABS: Albumin Level 3.6 g/dl (3.5-5.0); Chloride 111 mmol/L (98-107); Sodium 140 mmol/L (136-145)
[2024-08-18 20:26] LABS: Potassium 3.6 mmoL/L (3.5-5.1)
[2024-08-18 20:28] LABS: Alanine Aminotransferase 12 U/L (12-78); Anion Gap 11.6 mEq/L (5-15); Aspartate Amino Transferase 19 U/L (14-36); Blood Urea Nitrogen 11 mg/dl (7-17); Carbon Dioxide 21 mmol/L (22.0-30.0); Creatinine Clearance Estimated 160 mL/min (50-200); Estimated Glomerular Filt Rate 75 ml/min (>60); GFR (African American) 91 ML/MIN (>60)
[2024-08-18 20:29] LABS: Albumin/Globulin Ratio 1.1 (1.1-1.8); Alkaline Phosphatase 131 U/L (38-126); Bilirubin,Total 0.3 mg/dl (0.2-1.3); Calcium 8.5 mg/dl (8.4-10.2); Globulin 3.2 g/dL (1.3-3.2); Glucose 87 mg/dl (74-100); Total Protein,Serum 6.8 g/dl (6.3-8.2)
[2024-08-18 20:37] LABS: Uric Acid 5.8 mg/dl (2.5-6.2)
--- NOTE | 2024-08-18 20:37 | PC.NURSE ---
Spoke with MD regarding pt and recent labs, BP. Telephone order received for Labetalol 200 mg PO once. Monitor pt for 1 hour, if she is feeling better she can be DC home. MD recommends pt to follow up with her MD within 48 hours or he would be happy to see her in his office. Order r/v
[2024-08-18] MEDS: LABETALOL 100MG TABLET 200 MG PO (20:59)
[2024-08-18 21:32] LABS: Bacteria,Urine Trace /lpf; Mucus,Urine 2+ /lpf
--- NOTE | 2024-08-18 22:11 | PC.NURSE ---
Pt reports that headache and spotted vision has improved. Pt still reports some chest pressure, pt agreeable to EKG. Respiratory paged for bedside EKG at this time.
[2024-08-18 22:13] VITALS: BP 138/82
--- NOTE | 2024-08-18 22:20 | ECG_ITS ---
APPROVED REPORT Exam: Resting ECG HR:71 bpm ECG Measurements Heart Rate 71 AXES AR 154 P 35 QRSd 90 QRS 34 QT 430 T 29 QTc 453 Conclusion SINUS RHYTHM NONSPECIFIC T-WAVE ABNORMALITY BORDERLINE ECG UNCONFIRMED REPORT Electronically signed by : Dayne Ramirez MD 08/19/2024 08:49:18
--- NOTE | 2024-08-18 22:30 | PC.NURSE ---
EKG reviewed and signed by hospitalist.
--- NOTE | 2024-08-18 22:33 | PC.NURSE ---
MD notifed about pts EKG due to chest pressure. Informed him that pt is feeling better and has pepcid to take at home per MD instruction. Pt to be DC home if pt is agreeable. Pt is agreeable.
--- NOTE | 2024-08-18 22:40 | PC.NURSE ---
DC instructions provided and discussed with pt. Pt has no further questions at this time. IV removed. Pt tolerated well.
--- NOTE | 2024-08-18 22:45 | PC.NURSE ---
Pt discharged home. Pt ambulated out of unit at this time, accompanied by family member.
== END 2024-08-18 22:45 | disposition home or self-care (01) ==
LOC: OBOUT 19:27 → OB 19:27
PROVIDERS: Visit Provider Nurse Practitioner Obstetrics & Gynecology
DX: O13.5 Gestational [pregnancy-induced] hypertension without significant proteinuria, complicating the puerperium (principal)
CPT/HCPCS: 80053; 81001; 82570; 84156; 84550; 85025; 85384; 85610; 85730; 93005; G0463

== ENCOUNTER 2024-12-02 16:11 | Outpatient (CLI) | payer BC, SELFPAY ==
--- OUTSIDE RECORDS SUMMARY | 2024-12-02 16:14 | XMS_ITS | Clinical Summary ---
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 ferrous gluconate (Fergon) 324 (38 Fe) MG tablet Take 1 tablet (324 mg total) by mouth every other day. 60 tablet 3 06/12/2022 Active buPROPion XL (Wellbutrin XL) 150 MG 24 hr tablet Take 1 tablet (150 mg) by mouth 1 (one) time each day. Do not crush, chew, or split. Active phentermine 37.5 MG capsule Take 1 capsule (37.5 mg) by mouth 1 (one) time each day before breakfast. Active Active Problems Problem Noted Date Diagnosed Date Encounter for induction of labor 04/25/2022 Anemia 04/25/2022 Immunizations Immunization Administration Dates Next Due DTaP 01/23/2002, 9,1997,1997,1997 HPV, Quadrivalent 11/24/2010,01/09/2008,10/14/19 08 Hep B, Adolescent or Pediatric 1997,1996 Hep B, adult 11/10/2019 Hib / Hep B 02/11/1998 IPV 02/18/2001,1997,1997 Influenza, Unspecified 02/02/2017 Influenza, injectable, quadr ivalent, preservative free 02/23/2022,02/01/2020,04/01/2018 Influenza, seasonal, injectable 04/19/2023,03/03 MMR 11/10/2019,02/18/2001,05/18/1998 Tdap 02/23/2022,11/10/2019,10/14/2007 Social History Tobacco Use Types Packs/Day Years Used Date Smoking Tobacco: Never Smokeless Tobacco: Never Tobacco Cessation:Counseling Given: Not Answered Alcohol Use Standard Drinks/Week Comments Not Currently 0 (1 standard drink = 0.6 oz pur e alcohol) Elburn Depression Scale Answer Date Recorded Elburn Depression Scale Total 3 06/12/2022 The thought of harming myself has occurred to me . Never 06/12/2022 Comments No Sex and Gender Information Value Date Recorded Sex Assigned at Female 04/19/2023 1:19 AM EST Legal Sex Female 6:37 PM EDT Gender Identity Female 04/19/2023 1:19 AM EST Sexual Orientation Not on file Last Filed Vital Signs Vital Sign Reading Time Taken Comments Blood Pressure 138/83 03/28/2023 8:36 AM EST Pulse 72 03/28/2023 8:36 AM EST Temperature 36.7 C (98.1 F) 03/28/2023 8:36 AM EST Respiratory Rate 20 03/28/2023 8:36 AM EST Oxygen Saturation 100% 03/28/2023 8:36 AM EST Inhaled Oxygen Concentration - - Weight 93 kg (205 lb) 03/28/2023 12:59 AM EST Height 172.7 cm (5' 8 ) 03/28/2023 12:59 AM EST Body Mass Index 31.17 03/28/2023 12:59 AM EST Plan of Treatment Health Maintenance Due Date Last Done Comments [facility]-/Child/Adol SDOH Screenings 1997 [facility]-Obesity Intervention 2003 [facility]- SDOH Screenings 2015 [facility]-Adult SDOH Screenings 2015 [facility]-Pap Smear 2018 [facility]-Varicella Vaccines (1 of 2 - 13+ 2-dose series) 12/08/2019 [facility]-Depression Screening 06/12/2023 06/12/2022 [facility]-ABJSE-25 Vaccine ( season) 2024 05/05/2021, 04/06/2021 [facility]-Influenza Vaccine (#1) 01/05/202504/19, 02/23/2022, 03/03/2021, Additional history exists [facility]-DTaP,Tdap,and Td Vaccines (9 - Td or Tdap) 02/24/2032 02/23/2022, 11/10/2019, 10/14/2007, Additional history exists [facility]-Zoster Vaccines (1 of 2) 2047 [facility]-HIB Vaccines Completed 02/11/1998, , 1997 [facility]-IPV Vaccines Completed 02/18/2001, 12/1997, 1997, Additional history exists HPV Vaccines Completed 11/24/2010, 08/2007, 10/14/2007 [facility]-Hepatitis B Vaccines Completed 020, 02/11/1998, 1997, Additional history exists [facility]-HIV Screening Completed 03/27/2022 [facility]-Hepatitis C Screening Completed 03/28/2023, [facility]-Hepatitis A Vaccines Aged Out No longer eligible based on patient's age to complete this topic [facility]-Pneumococcal Vaccine: Pediatrics (0 to 5 Years) and At-Risk Patients (6 to 49 Years) Aged Out No longer eligible based on patient's age to complete this topic [facility]-Rotavirus Vaccines Aged Out No lo nger eligible based on patient's age to complete this topic Goals Goal Patient Goal Type Associated Problems Recent Progress Patient-Stated? Author Delayed Delivery Care Plan CPM S20 PP LABOR (OBSTETRICS) No Open Scheduling, Background Procedures Procedure Name Priority Date/Time Associated Diagnosis Comments ACUTE HEPATITIS PANEL STAT 03/28/2023 1:48 AM EST HIV 1/2 ANTIBODY/ANTIGEN SCREEN WITH REFLEX TO HIV I/II DIFFERENTIATION Routine 03/27/2022 3:46 PM EST Elevated BP without diagnosis of hypertension from Last 3 Months or Most Recently Relevant to Health Maintenance Results * Hepatitis panel, acute (03/28/2023 1:48 AM EST) Hepatitis B Surf Antigen Negative Negative 03/28/2023 2:46 AM EST [facility] Hepatitis C Antibody Negative Negative 03/28/2023 2:46 AM EST [facility] Hepatitis A Antibody IgM Negative Negative 03/28/2023 2:46 AM EST [facility] Hepatitis B Core Antibody IgM Negative Negative 03/28/2023 2:46 AM EST [facility] Blood Venous blood specimen / Unknown Venipuncture / Unknown 03/28/2023 1:48 AM EST 03/28/2023 1:58 AM EST us Kenneth Price MD LAB BLOOD ORDERABLES Final Resu lt [facility] [address] [place] [address] * HIV 1 & 2 Antibody/Antigen Screen (03/27/2022 3:46 PM EST) HIV 1 & 2 Antibody/Anti gen Screen Nonreactive Nonreactive 03/27/2022 7:33 PM EST [facility] Blood Venous blood specimen / Unknown Venipuncture / Unknown 03/27/2022 3:46 PM EST 03/27/2022 3:47 PM EST us Belkys Alvarez MD LAB BLOOD ORDERABLES Final Result Performing Organization Address City/[facility] Co de Phone Number [facility] [address] [place] [address] from Last 3 Months or Most Recently Relevant to Health Maintenance Additional Health Concerns Active Problems Noted Date Diagnosed Date CPM S20 PP LABOR (OBSTETRICS) 03/20/2022 [facility] [employer] Advance Directives * Full Code (Latest Code Status on File) Date Activated Date Inactivated Comments 04/25/2022 8:11 PM 04/27/2022 10:55 PM Question Answer Comments Patient has decision-making capacity? 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
--- OUTSIDE RECORDS SUMMARY | 2024-12-02 16:14 | XMS_ITS | Clinical Summary ---
Author Organization [facility] Address [address] [place] [address] Care Team Providers Care Retort Load Expediter Name Role Phone Stephanie Ch APRN Primary Care Provider [phone] Allergies No known active allergies Medications hydrOXYzine (ATARAX) 25 MG tabletIndicatio ns:Anxiety Take 1 tablet by mouth At Night As Needed for Anxiety. 90 tablet 4 Active Vit-Fe Fumarate-FA ( 27-1) 27-1 MG tablet tablet Take 1 tablet by mouth Daily. Active Blood Glucose Monitoring Suppl (Blood Glucose Monitor System) w/Device kit Use as directed to test blood sugar 4 times daily (fasting and 2 hours after meals) 1 each 06/03/2024 10:04 AM EST 5 Active Lancets (accu-chek safe-t pro) lancets Use as directed to test blood sugar 4 times daily (fasting and 2 hours after meals) 200 each 3 06/03/2024 10:04 AM EST 5 Active valACYclovir (VALTREX) 500 MG tablet Take 2 tablets by mouth Daily. Active docusate sodium 100 MG capsule Take 1 capsule by mouth 2 (Two) Times a Day As Needed for Constipation. 60 capsule 08/04/2024 9:33 AM EDT 5 Active ferrous sulfate 325 (65 FE) MG tablet Take 1 tablet by mouth Daily With Breakfast. 60 tablet 08/04/2024 9:33 AM EDT 5 Active ibuprofen (ADVIL,MOTRIN) 600 MG tablet Take 1 tablet by mouth Every 6 (Six) Hours As Needed for Mild Pain (First Line: Mild pain.). 60 tablet 08/04/2024 9:33 AM EDT Active docusate sodium (COLACE) 100 MG capsule Take 1 capsule by mouth 2 (Two) Times a Day. Active dicloxacillin (DYNAPEN) 500 MG capsule Take 1 capsule by mouth 4 (Four) Times a Day for 10 days. 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 HPV high risk Pool negative. GC /chlamydia negative ([place]) Vaginal discharge 08/08/2023 11/16/2023 Overview (08/08/2023): 08/08/2023 new swab sent. Maternal anemia in , antepartum 10/05/2021 08/08/2023 Overview (10/05/2021): Pt is a twin and her sister is to have a bone marrow transplant d/t anemia Pt had transfusion @ [facility] on 09/14, Hgb went from 6-8 and Hct 21-26 per pt History of recent blood transfusion 10/05/2021 08/08/2023 10/05/2021 08/08/2023 Overview (10/05/2021): Prev term 7#13oz Post-dates 04/19/2018 022 anomaly suspected but not found 12/12/2017 10/05/2021 Family History Medical History Relation Name Comments Coronary artery disease Father Sam Pearson Hypertension Father Sam Pearson Diabetes Mother Jazz Wu Relation Name Status Comments Father Sam Pearson Mother Jazz Wu Social History Tobacco Use Types Packs/Day Years Used Date Smoking Tobacco: Former Cigarettes Q uit: 2019 Passive Smoke Exposure: Never Smokeless Tobacco: Never Tobacco Cessation:Counseling Given: No Alcohol Use Standard Drinks/Week Comments No 0 (1 standard drink = 0.6 oz pur e alcohol) [facility] Utilities Answer Date Recorded In the past 12 months has th e electric, gas, oil, or water company threatened to shut off services in your home? No 08/08/2024 AUDIT-C Answer Date Recorded Q1: How often do you have a drink containing alcohol? Never 08/08/2024 Q2: How many drinks containi ng alcohol do you have on a typical day when you are drinking? Patient does not drink Q3: How often do you have si x or more drinks on one occasion? Never 08/08/2024 Overall Financial Resource Strain (CARDIA) Answe r Date Recorded How hard is it for you to pa y for the very basics like food, housing, medical care, and heating? Not very hard 08/08/2024 [facility] - Occupational Stress Questionnaire Answer Date Recorded Do you feel stress - tense, restless, nervous, or anxious, or unable to sleep at night because your mind is troubled all the time - these days? Not at all 08/08/2024 Exercise Vital Sign Answer Date Recorde d On average, how many days pe r week do you engage in moderate to strenuous exercise (like a brisk walk)? 4 days 08/08/2024 On average, how many minutes do you engage in exercise at this level? 30 min 08/08/2024 Hunger Vital Sign Answer Date Recorded Within the past 12 months, y ou worried that your food would run out before you got the money to buy more. Never true 08/09/19 25 Within the past 12 months, t he food you bought just didn't last and you didn't have money to get more. Never true 08/08/2024 PRAPARE - Transportation Answer Date Re corded In the past 12 months, has l ack of transportation kept you from medical appointments or from getting medications? No 08/2024 In the past 12 months, has l ack of transportation kept you from meetings, work, or from getting things needed for daily living? No 08/08/2024 [place] Depression Scale Answer Date Recorded [place] Depression Scale Total 4 08/03/2024 The thought of harming myself has occurred to me . Never 08/03/2024 Abuse Screen Answer Date Recorded Feels Unsafe at Home or Work/School no 08/08/2024 Feels Threatened by Someone no 08/2024 Does Anyone Try to Keep You From Having Contact with Others or Doing Things Outside Your Home? no 08/08/2024 Physical Signs of Abuse Present no 08/08/2024 Housing Stability Answer Date Recorded Current Living Arrangements home 08/2024 Potentially Unsafe Housing Conditions none 08/08/2024 Family and Community Support Answer Casimiro e Recorded If for any reason you need h elp with day-to-day activities such as bathing, preparing meals, shopping, managing finances, etc., do you get the help you need? I don't need any help 08/08/2024 How often do you feel lonely or isolated from those around you? Never 08/08/2024 Employment Answer Date Recorded Do you want help finding or keeping work or a job? I do not need or want help 08/08/2024 Disabilities Answer Date Recorded Difficulty Concentrating, Remembering or Making Decisions no 08/08/2024 Difficulty Managing Errands Independently no 08/08/2024 Education Answer Date Recorded Do you want help with school or training? For example, starting or completing job training or getting a high school diploma, GED or equivalent No 08/08/2024 Preferred Language Swiss 08/08/2024 PHQ-2 Answer Date Recorded Patient Health Questionnaire-2 Score 0 08/08/2024 Comments No Sex and Gender Information Value Date Recorded Sex Assigned at Not on file Legal Sex Female 10:22 AM EST Gender Identity Not on file Sexual Orientation Not on file Last Filed Vital Signs Vital Sign Reading Time Taken Comments Blood Pressure 128/60 08/10/2024 3:50 AM EDT Pulse 57 08/10/2024 3:50 AM EDT Temperature 36.7 C (98 F) 08/09/2024 11:40 PM EDT Respiratory Rate 16 08/10/2024 3:50 AM EDT Oxygen Saturation 100% 08/10/2024 1:00 AM EDT Inhaled Oxygen Concentration - - Weight 114 kg (252 lb) 08/02/2024 1:44 PM EDT Height 175.3 cm (5' 9 ) 08/02/2024 1:44 PM EDT Body Mass Index 37.21 08/02/2024 1:44 PM EDT Plan of Treatment Health Maintenance Due Date Last Done Comments Annual Gynecologic Pelvic and Breast Exam 1995 ANNUAL PHYSICAL 12/12/2017 COVID-19 Vaccine ( season) 2024 05/05/2021, 04/06/2021 PAP SMEAR 10/05/2024 10/05/2021 INFLUENZA VACCINE 02/04/2025 04/14/2024, , 02/23/2022, Additional history exists TDAP/TD VACCINES (4 - Td or Tdap) 02/24/2032 02/23/2022, 11/10/2019, 10/14/2007 CHLAMYDIA SCREENING Discontinued 02/01/2024, 08/08/2023, 09/02/2020, Additional history exists HEPATITIS C SCREENING Completed 02/01/2024 , 08/08/2023, 03/28/2023, Additional history exists Pneumococcal Vaccine 0-49 Aged Out No longer eligible based on patient's age to complete this topic Procedures Procedure Name Priority Date/Time Associated Diagnosis Comments CHLAMYDIA TRACHOMATIS, NEISSERIA GONORRHOEAE, PCR W/ CONFIRMATION Routine 02/01/2024 12:46 PM EDT 10 weeks gestation of Personal history of trophoblastic disease Anemia, unspecified type HEPATITIS C ANTIBODY Routine 02/01/2024 12:46 PM EDT 10 weeks gestation of Personal history of trophoblastic disease Anemia, unspecified type LIQUID-BASED PAP SMEAR, [facility]) Routine 10/05/2021 10:46 AM EDT 8 weeks gestation of from Last 3 Months or Most Recently Relevant to Health Maintenance Results * Hepatitis C Antibody (02/01/2024 12:46 PM EDT) Hepatitis C Ab Non-Reacti ve Non-Reacti ve 02/02/2024 12:18 AM EDT [facility] Blood Venipuncture / Unknown 02/01/2024 12:46 PM EDT 02/01/2024 12:47 PM EDT Sarah Rodriguez DO LAB BLOOD ORDERABLES Final R esult [facility]
[address] [place] [address], * Chlamydia trachomatis, Neisseria gonorrhoeae, PCR w/ confirmation - Swab, Urine, Clean Catch (02/01/2024 12:46 PM EDT) Chlamydia trachomatis, ROSARIO Negative Negative 02/05/2024 8:18 AM EDT [facility] Neisseria gonorrhoeae, ROSARIO Negative Negative 02/05/2024 8:18 AM EDT [facility] Swab Urine specimen obtained by clean catch procedure / Unknown Collection / Unknown 02/01/2024 12:46 PM EDT 02/01/2024 12:47 PM EDT Narrative [facility] - 02/05/2024 8:18 AM EDT Performed at: [facility] [id number] Dry Room Attendant: Nick Willett MD, Phone: [phone] Sarah Rodriguez DO MICROBIOLOGY - GENERAL ORDER BHAVANA Final Result [facility] [address] [place] [address], [place] [phone] * LIQUID-BASED PAP SMEAR, [facility]) (10/05/2021 10:46 AM EDT) Reference Lab Report [facility] [address] [place] [address] or [phone] Minesh Avila M.D., Physician Practice Consultant PATIENT NAME LABORATORY NO. PREETI MICHELLE [id number] AGE SEX SSN CLIENT REF # [id number] 1995 F [id number] [facility] MELANIE COCO REQUESTING Janeth. [place] [address] CYNTHIA VIEIRA DATE COLLECTED DATE RECEIVED DATE REPORTED 10/05/2021 10/06/2021 10/13/2021 ThinPrep Pap with Cytyc Imaging DIAGNOSIS: Epithelial cell abnormality. (ASC) Atypical squamous cells of undetermined significance. Recommend correlation with HPV DNA testing if not ordered on this current Thin Prep. Professional interpretation rendered by Minesh Avila M.D., F.C.A.P. at [facility], [address] [place] [address]. SPECIMEN ADEQUACY: SATISFACTORY FOR EVALUATION Transformation zone is present. SOURCE OF SPECIMEN: CERVICAL SLIDES: 1 CLINICAL HISTORY: 8 weeks gestation of HPV HR-HPV POOL: Negative The Aptima HPV assay is an in vitro nucleic acid amplification test for the qualitative detection of E6/E7 viral messenger RNA from 14 high risk types of HPV in cervical specimens. The high risk HPV types detected include: 16, 18, 31, 33, 35, 39, 45, 51, 52, 56, 58, 59, 66, 68 Chlamydia / Gonorrhea CHLAMYDIA TRACHOMATIS: Negative NEISSERIA GONORRHOEAE: Negative The Aptima Combo 2 assay is a target amplification nucleic acid probe test that utilizes target capture for the in vitro qualitative detection and differentiation of ribosomal RNA from Chlamydia trachomatis and Neisseria gonorrhoeae to aid in the diagnosis of chlamdial and gonococcal disease using the Stewart system. MANAGER PMO: ARACELIS LIN (ASCP) REVIEWED, DIAGNOSED AND ELECTRONICALLY SIGNED BY: Minesh Avila M.D., F.C.A.P. CPT CODES: [id number], [id number], [id number], [id number], [id number] 10/13/2021 12:32 PM EDT [facility] ThinPrep Vial Collection / Unknown 10/05/2021 10:46 AM EDT 10/05/2021 10:47 AM EDT Cynthia Vieira MD PATHOLOGY/CYTOLOGY ORDERABLES Fi nal Result [facility]
[address] [place] [address], from Last 3 Months or Most Recently Relevant to Health Maintenance Insurance EMPLOYEE Advance Directives * CPR (Attempt to Resuscitate) (Latest Code Status on File) Date Activated Date Inactivated Comments 08/09/2024 12:43 PM 08/10/2024 10:26 AM Question Answer Comments Code Status (Patient has no pulse and is not breathing): CPR (Attempt to Resuscitate) Medical Interventions (Patie nt has pulse or is breathing): Full * CPR (Attempt to Resuscitate) Date Activated Date Inactivated Comments 08/03/2024 7:58 AM 08/04/2024 2:49 PM Question Answer Comments Code Status (Patient has no pulse and is not breathing): CPR (Attempt to Resuscitate) Medical Interventions (Patie nt has pulse or is breathing): Full * CPR (Attempt to Resuscitate) Date Activated Date Inactivated Comments 08/02/2024 11:32 AM 08/03/2024 7:58 AM Question Answer Comments Code Status (Patient has no pulse and is not breathing): CPR (Attempt to Resuscitate) Medical Interventions (Patie nt has pulse or is breathing): Full Support Level Of Support Discussed With: Patient * CPR (Attempt to Resuscitate) Date Activated Date Inactivated Comments 04/20/2018 4:36 PM 04/22/2018 2:43 PM Question Answer Comments Code Status (Patient has no pulse and is not breathing): CPR (Attempt to Resuscitate) Medical Interventions (Patie nt has pulse or is breathing): Full * CPR (Attempt to Resuscitate) Date Activated Date Inactivated Comments 04/19/2018 11:48 PM 04/20/2018 4:36 PM Question Answer Comments Code Status (Patient has no pulse and is not breathing): CPR (Attempt to Resuscitate) Medical Interventions (Patie nt has pulse or is breathing): Full Care Teams Retort Load Expediter Relationship Specialty Start Date End Date Stephanie Ch, HAND GL[employer]ER [address] [place] [address] [place] [address] PCP - General Family Medicine 11/15/23
[2024-12-02 17:04] LABS: Hematocrit 33.8 % (37.0-47.0); Hemoglobin 10.2 g/dL (12.2-16.2); Immature Granulocytes % 0.2 %; Mean Corpuscular HGB Conc 30.2 g/dL (31.8-35.4); Mean Corpuscular Hemoglobin 24.3 pg (27.0-31.2); Mean Corpuscular Volume 80.7 fl (81-99); Nucleated Red Blood Cells % 0 %; Platelet Count 477 K/mm3 (142-424); Red Blood Count 4.19 M/mm3 (4.20-5.40); Red Cell Distribution Width-SD 45.0 fL; White Blood Count 6.4 K/mm3 (4.8-10.8)
[2024-12-02 17:51] LABS: Hemoglobin A1C 5.2 % (4.0-6.0)
[2024-12-02 18:28] LABS: Chloride 102 mmol/L (98-107); Sodium 136 mmol/L (136-145)
[2024-12-02 18:29] LABS: Potassium 4.1 mmoL/L (3.5-5.1)
[2024-12-02 18:32] LABS: Anion Gap 10.1 mEq/L (5-15); Blood Urea Nitrogen 12 mg/dl (7-17); Calcium 9.9 mg/dl (8.4-10.2); Carbon Dioxide 28 mmol/L (22.0-30.0); Creatinine,Serum 0.80 mg/dl (0.52-1.04); Estimated Glomerular Filt Rate 86 ml/min (>60); GFR (African American) 104 ML/MIN (>60); Glucose 93 mg/dl (74-100); Magnesium 2.0 mg/dl (1.6-2.3)
== END 2024-12-02 23:59 | disposition home or self-care (01) ==
LOC: LAB 16:12
PROVIDERS: Visit Provider Nurse Practitioner Family
DX: D50.0 Iron deficiency anemia secondary to blood loss (chronic) (principal); R03.0 Elevated blood-pressure reading, without diagnosis of hypertension; R51.9 Headache, unspecified; Z13.1 Encounter for screening for diabetes mellitus
CPT/HCPCS: 36415; 80048; 83036; 83735; 85025

== ENCOUNTER 2025-04-15 15:38 | Outpatient (CLI) | payer OTHER, SELFPAY ==
[2025-04-15 16:15] LABS: Hematocrit 31.8 % (37.0-47.0); Hemoglobin 9.5 g/dL (12.2-16.2); Immature Granulocytes % 0.2 %; Mean Corpuscular HGB Conc 29.9 g/dL (31.8-35.4); Mean Corpuscular Hemoglobin 22.1 pg (27.0-31.2); Mean Corpuscular Volume 74.1 fl (81-99); Nucleated Red Blood Cells % 0 %; Platelet Count 462 K/mm3 (142-424); Red Blood Count 4.29 M/mm3 (4.20-5.40); Red Cell Distribution Width-SD 43.1 fL; White Blood Count 5.8 K/mm3 (4.8-10.8)
[2025-04-15 16:53] LABS: Iron 29 ug/dL (37-170)
[2025-04-15 17:03] LABS: Total Iron Binding Capacity 456 ug/dL (265-497)
[2025-04-15 17:31] LABS: Ferritin 5.01 ng/ml (6.24-137)
== END 2025-04-15 23:59 | disposition home or self-care (01) ==
PROVIDERS: Internal Medicine Medical Oncology; Visit Provider Nurse Practitioner Family
DX: D50.9 Iron deficiency anemia, unspecified (principal)
CPT/HCPCS: 36415; 82728; 83540; 83550; 85025